=== PATIENT | female | born 1970 | race Caucasian/White ===

== ENCOUNTER 2016-07-10 15:34 | Emergency (ER) | payer BC ==
[2016-07-10 15:57] VITALS: BP 118/84
--- NOTE | 2016-07-10 16:22 | UC ---
UC General HPI - HPI Summary HPI Summary: patient has had 4 days for headache, sinus congestion, fever, body aches - History of Current Complaint Chief Complaint: UCRespiratory Stated Complaint: COUGH, BODY ACHES Time Seen by Provider: 07/10/16 16:09 Hx Obtained From: Patient Onset/Duration: Sudden Onset, Lasting Days Timing: Constant Onset Severity: Moderate Current Severity: Moderate Pain Intensity: 6 Associated Signs & Symptoms: Positive: Fever, Headache - Allergy/Home Medications Allergies/Adverse Reactions: Allergies Allergy/AdvReac Type Severity Reaction Status Date / Time Penicillins Allergy Mild yeast Verified 07/10/16 15:57 infection Sumatriptan [From Imitrex] Allergy See Comment Verified 07/10/16 15:57 Home Medications: Home Medications FLUoxetine CAP* [PROzac CAP*] 10 mg PO DAILY 07/10/16 [History Confirmed ] PMH/Surg Hx/FS Hx/Imm Hx Previously Healthy: Yes Endocrine History Of: Denies: Diabetes, Thyroid Disease Cardiovascular History Of: Reports: Hypertension Denies: Cardiac Disorders, Pacemaker/ICD Respiratory History Of: Denies: COPD, Asthma GI/ History Of: Reports: Gastroesophageal Reflux Denies: Ulcer, Gastrointestinal Bleed Neurological History Of: Reports: Migraine Denies: TIA, CVA, Dementia, Seizures - Surgical History Surgical History: Yes Surgery Procedure, Year, and Place: Left Forearm Nerve Decompression, 2008. Cholecystectomy, 2001, [facility]. uterine Ablation. R RCT. ulnar nerve right arm. carpal tunnel right side. Upper endo and Colonoscpy - Family History Known Family History: Positive: Other - migraines - Social History Alcohol Use: Occasionally Substance Use Type: None Smoking Status (MU): Former Smoker Type: Cigarettes Amount Used/How Often: 1 PPD Length of Time of Smoking/Using Tobacco: 5-6 Years Have You Smoked in the Last Year: No When Did the Patient Quit Smoking/Using Tobacco: 1993 - Immunization History Most Recent Influenza Vaccination: 04/2015 Review of Systems Skin: Negative Eyes: Negative ENT: Sore Throat, Nasal Discharge Respiratory: Cough Cardiovascular: Negative Gastrointestinal: Negative Genitourinary: Negative Motor: Negative Neurovascular: Negative Musculoskeletal: Myalgia Neurological: Headache Psychological: Negative All Other Systems Reviewed And Are Negative: Yes Physical Exam Triage Information Reviewed: Yes Appearance: Ill-Appearing, Pain Distress, Obese Vital Signs: Initial Vital Signs Temp 97.8 F 07/10/16 15:51 Pulse 86 07/10/16 15:51 Resp 16 07/10/16 15:51 BP 118/84 07/10/16 15:51 Pulse Ox 98 07/10/16 15:51 Vital Signs Reviewed: Yes Eye Exam: Normal Eyes: Positive: Conjunctiva Inflamed ENT: Positive: Hearing grossly normal, Pharyngeal erythema, Nasal congestion, Nasal drainage, TMs normal Dental Exam: Normal Neck exam: Normal Neck: Positive: Supple, Nontender, No Lymphadenopathy Respiratory Exam: Normal Respiratory: Positive: Chest non-tender, Lungs clear, Normal breath sounds Cardiovascular Exam: Normal Cardiovascular: Positive: RRR, No Murmur, Pulses Normal Abdominal Exam: Normal Abdomen Description: Positive: Nontender, No Organomegaly, Soft Bowel Sounds: Positive: Present Musculoskeletal Exam: Normal Musculoskeletal: Positive: Strength Intact, ROM Intact, No Edema Neurological Exam: Normal Neurological: Positive: Alert, Muscle Tone Normal Psychological Exam: Normal Skin Exam: Normal Course/Dx - Course Course Of Treatment: history obtained, exam performed, medications removed, flu swab obtained per patients request. - Differential Dx - Multi-Symptom Provider Diagnoses: sinus congestion. headache. myalgia Discharge - Discharge Plan Condition: Stable Disposition: HOME Patient Education Materials: Rhinosinusitis (ED) Additional Instructions: Take the prednisone as prescribed. increase fluid intake and get some rest. follow up with any worsening symptoms.
== END 2016-07-10 16:48 | disposition home or self-care (01) ==
LOC: UCCORT 15:34
DX: R09.81 Nasal congestion (principal); R51 Headache; M79.1 Myalgia; Z88.0 Allergy status to penicillin; Z88.8 Allergy status to other drugs, medicaments and biological substances; Z87.891 Personal history of nicotine dependence
CPT/HCPCS: 87502; 99212; G0463

== ENCOUNTER 2016-07-27 21:38 | Emergency (ER) | payer BC ==
[2016-07-27 21:47] VITALS: BP 132/83
[2016-07-27] MEDS ORDERED: methylPREDNISolone 125 MG* 2 ML VIAL IM ONE (21:55)
[2016-07-27] MEDS ORDERED: LoraTADine TAB(NF) 10 MG TAB (AUTOSUB to CETIRIZINE) PO ONE (21:56)
--- NOTE | 2016-07-27 22:06 | UC ---
Allergic Reaction HPI - HPI Summary HPI Summary: swelling of lower lip started around 6pm today. No known cause. No new foods or meds. Has been on Lisinopril for years, no change in dose or brand. Gradual worsening of swelling. Now she feels a slight sensation of swelling low down in the throat. No voice change. Able to swallow saliva. No wheezing or trouble breathing. No history of similar reaction. No skin rash or itching. NO recent immunizations. No family history of similar swelling - History of Current Complaint Chief Complaint: UCAllergicReaction Stated Complaint: ALLERGIC REACTION Time Seen by Provider: 07/27/16 21:47 Hx Obtained From: Patient Hx Last Menstrual Period: ABLATION ?: No Onset/Duration: Gradual Onset, Lasting Hours - 4 Severity Initially: Mild Severity Currently: Moderate Location: Discrete @ - lower lip Character: Swelling Aggrevating Factor(s): Nothing Alleviating Factor(s): Nothing Associated Signs And Symptoms: Positive: Throat Tightening - "feels swollen way down in throat". Negative: Cough Wheezing, Diaphoresis, Difficulty Breathing, Hoarseness, Lightheadedness, Nausea, Rash, Syncope - Related Hx Possible Reaction To: Unknown - Allergies/Home Medications Allergies/Adverse Reactions: Allergies Allergy/AdvReac Type Severity Reaction Status Date / Time Penicillins Allergy Mild yeast Verified 07/27/16 21:47 infection Sumatriptan [From Imitrex] Allergy See Comment Verified 07/27/16 21:47 Home Medications: Home Medications Diphenhydramine HCl [Benadryl Allergy] 25 mg PO ONCE 07/27/16 [History Confirmed 07/27/16] PMH/Surg Hx/FS Hx/Imm Hx Endocrine History Of: Denies: Diabetes, Thyroid Disease Cardiovascular History Of: Reports: Hypertension Denies: Cardiac Disorders, Pacemaker/ICD Respiratory History Of: Denies: COPD, Asthma GI/ History Of: Reports: Gastroesophageal Reflux Denies: Ulcer, Gastrointestinal Bleed Neurological History Of: Reports: Migraine Denies: TIA, CVA, Dementia, Seizures - Surgical History Surgical History: Yes Surgery Procedure, Year, and Place: Left Forearm Nerve Decompression, 2009. Cholecystectomy, 2001, [facility]. uterine Ablation. R RCT. ulnar nerve right arm. carpal tunnel right side. 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 Alcohol Use: Occasionally Substance Use Type: None Smoking Status (MU): Former Smoker Type: Cigarettes Amount Used/How Often: 1 PPD Length of Time of Smoking/Using Tobacco: 5-6 Years Have You Smoked in the Last Year: No When Did the Patient Quit Smoking/Using Tobacco: 1993 - Immunization History Most Recent Influenza Vaccination: 04/2015 Review of Systems Constitutional: Negative Skin: Negative Eyes: Negative ENT: Other - lip swelling Respiratory: Negative Cardiovascular: Negative Gastrointestinal: Negative Genitourinary: Negative Motor: Negative Neurovascular: Negative Musculoskeletal: Negative Neurological: Negative Psychological: Negative All Other Systems Reviewed And Are Negative: Yes Physical Exam Triage Information Reviewed: Yes Appearance: Well-Appearing, No Pain Distress, Well-Nourished Vital Signs: Initial Vital Signs Temp 97.6 F 07/27/16 21:41 Pulse 76 07/27/16 21:41 Resp 24 07/27/16 21:41 BP 132/83 07/27/16 21:41 Pulse Ox 100 07/27/16 21:41 Vital Signs Reviewed: Yes Eye Exam: Normal Eyes: Positive: Conjunctiva Clear ENT: Positive: Hearing grossly normal, Pharynx normal - no visible swelling of pharynx or uvula. Voice normal, not muffled or hoarse. Lower lip is mildly edematous. No rash. No tongue swelling, TMs normal. Negative: Nasal congestion , Nasal drainage, Tonsillar swelling, Tonsillar exudate, Trismus, Muffled/ hoarse voice Neck exam: Normal Neck: Positive: Supple, Nontender Respiratory Exam: Normal Respiratory: Positive: Lungs clear, Normal breath sounds, No respiratory distress, No accessory muscle use Cardiovascular Exam: Normal Musculoskeletal Exam: Normal Neurological Exam: Normal Psychological Exam: Normal Skin Exam: Normal Allergic Reaction Course/Dx - Course Course Of Treatment: advised to go directly to ER if any worsening symptoms. Also advised to stop Lisinopril until she can confer with her primary care doctor - Differential Dx/Diagnosis Differential Diagnosis/HQI/PQRI: Anaphylaxis, Angioedema, Local Allergic Reaction Provider Diagnoses: angioedema Discharge - Discharge Plan Condition: Stable Disposition: HOME Prescriptions: Methylprednisolone [Medrol Dosepak 4 MG*] 4 mg PO .SEE NAINA INSTRUCTION #1 naina Patient Education Materials: Angioedema (ED) Referrals: Felecia Heaton MD [Primary Care Provider] - Additional Instructions: STOP YOUR LISINOPRIL. Don't take it until you discuss with your primary care doctor. This lip and throat swelling can sometimes be associated with Lisinopril , even after years of taking it. If you get worse tonight, with a muffled voice or worse mouth swelling or throat tightening, you MUST go directly to the ER. The swelling with this condition can sometimes get very dramatic and can make it difficult for you to breathe.
== END 2016-07-27 22:26 | disposition home or self-care (01) ==
LOC: UCCORT 21:38
DX: T78.3XXA Angioneurotic edema, initial encounter (principal); I10 Essential (primary) hypertension; Z87.891 Personal history of nicotine dependence
CPT/HCPCS: 96372; 99212; A9270-GY; G0463; J2930

== ENCOUNTER 2017-01-06 15:58 | Emergency (ER) | payer BC, OTHER ==
--- NOTE | 2017-01-06 16:22 | UC ---
Upper Extremity HPI - HPI Summary HPI Summary: complaint of right arm pain that started yesterday afternoon was at work and resendeant cam at her and she put arm up to protecte yoursself and was puched in the hand and ten hit her foreamr several times aching pain in wrist, hand and radiates into her elbow, right shoulder is sore with movement twisting her wrist increases the pain resting and ice lessens the pain took some acetaminophen with some relief hx of rotator cuff surgery in right shoulder-2013 - History of Current Complaint Chief Complaint: UCUpperExtremity Stated Complaint: RIGHT ARM INJURY Time Seen by Provider: 01/06/17 16:15 Hx Obtained From: Patient Hx Last Menstrual Period: uterine ablation - Allergies/Home Medications Allergies/Adverse Reactions: Allergies Allergy/AdvReac Type Severity Reaction Status Date / Time Penicillins Allergy Mild yeast Verified 01/06/17 16:11 infection Sumatriptan [From Imitrex] Allergy See Comment Verified 01/06/17 16:11 Home Medications: Home Medications Magnesium Oxide TAB* [MagOx 400 TAB*] 800 mg PO DAILY 01/06/17 [History Confirmed 01/06/17] Meloxicam [Mobic] 15 mg PO DAILY 01/06/17 [History Confirmed 01/06/17] Ropinirole Hydrochloride [Ropinirole HCl] 0.5 mg PO BEDTIME 01/06/17 [History Confirmed 01/06/17] Vitamin E CAP* 400 unit PO DAILY 01/06/17 [History Confirmed 01/06/17] PMH/Surg Hx/FS Hx/Imm Hx Previously Healthy: Yes - fibromyalgia Endocrine History: Dyslipidemia Cardiovascular History: Hypertension Neurological History: Migraine Psychological History: Anxiety - Surgical History Surgical History: Yes Surgery Procedure, Year, and Place: Left Forearm Nerve Decompression, 2008. Cholecystectomy, 2001, [facility]. uterine Ablation. R RCT. ulnar nerve right arm. carpal tunnel right side. Upper endo and Colonoscpy. Cystocele repair with mesh - Family History Known Family History: Positive: Hypertension, Other - migraines Negative: Cardiac Disease, Diabetes - Social History Occupation: Employed Full-time Lives: With Family Alcohol Use: Daily Alcohol Amount: 2 beers each evening Substance Use Type: None Smoking Status (MU): Former Smoker Type: Cigarettes Amount Used/How Often: 1 PPD Length of Time of Smoking/Using Tobacco: 5-6 Years Have You Smoked in the Last Year: No When Did the Patient Quit Smoking/Using Tobacco: 1993 - Immunization History Most Recent Influenza Vaccination: 04/2015 Review of Systems Constitutional: Negative Skin: Negative Eyes: Negative ENT: Negative Respiratory: Negative Cardiovascular: Negative Gastrointestinal: Negative Genitourinary: Negative Motor: Negative Neurovascular: Negative Musculoskeletal: Other: - right wrist, hand, arm pain Neurological: Negative Psychological: Negative All Other Systems Reviewed And Are Negative: Yes Physical Exam Triage Information Reviewed: Yes Appearance: No Pain Distress, Well-Nourished Vital Signs: Initial Vital Signs Temp 98.3 F 01/06/17 16:04 Pulse 88 01/06/17 16:04 Resp 16 01/06/17 16:04 BP 130/72 01/06/17 16:04 Pulse Ox 97 01/06/17 16:04 Vital Signs Reviewed: Yes Eyes: Positive: Conjunctiva Clear ENT: Positive: Pharynx normal, TMs normal Neck: Positive: No Lymphadenopathy Respiratory: Positive: Lungs clear, Normal breath sounds, No respiratory distress, No accessory muscle use Cardiovascular: Positive: RRR, No Murmur, Pulses Normal Abdomen Description: Positive: Nontender, Soft Bowel Sounds: Positive: Present Musculoskeletal: Positive: Other: - right hand- tendernessand eccymosis thenar eminence positive anatomical snuff box tenderness;no metacarpal tenderness Full ROM in DIP, PIP, MCP, & carpal joints & with supination and pronation. RUE-No bony deformities, inflammation, or tenderness in olecranon, medial, lateral epicondyle elbow. Full ROM upon flexion and extension. Neurological: Positive: Alert Psychological Exam: Normal Skin Exam: Normal Upper Extremity Course/Dx - Differential Dx/Diagnosis Differential Diagnosis/HQI/PQRI: Contusion, Fracture (Closed), Strain, Sprain Provider Diagnoses: wrist injury, contusions to RUE-hand and arm Discharge - Discharge Plan Condition: Stable Disposition: HOME Patient Education Materials: Contusion in Adults (ED), Wrist Fracture in Adults (ED) Referrals: Felecia Heaton MD [Primary Care Provider] - Sean Sánchez MD [Medical Doctor] - Additional Instructions: call video conference specialist for further evaluation of your wrist injury keep wearing wrist splint until seem by video conference specialist. CONTUSION What is a Contusion? A contusion is a deep bruise. It is caused by a collection of blood under the skin. It usually goes away in about 4 days. Symptoms Might Include Pain Swelling Discoloration in the injured area Pain on motion or restricted motion may also be noticed Treatment Recommendations (JAIR): Rest Stop the activity that causes pain and protect the injured area using a splint, slings, or crutches as needed or as advised by a healthcare provider. Other alternative activities are recommended as long as they do not cause pain. Ice Ice the injury for 20 minutes 3 to 4 times daily, waiting at least 1 to 2 hours between icings. Compression Use a compression wrap (such as an Saman? wrap) on the injury, removing it at night. Elevate Keep the injured part elevated slightly above the level of the heart whenever possible. [id number] pain medications, such as acetaminophen (Tylenol) may help alleviate pain. Use heat (heating pad on lowest setting or moist towels) after the first 48 hours. (Do NOT use heat while sleeping.) Call Your Doctor or Return Here IF: Increased pain, especially with passive motion Swelling Warmth Redness to the area Numbness or tingling to the area Any new symptoms that worry you
[2017-01-06 16:40] VITALS: BP 130/72
--- NOTE | 2017-01-06 17:28 | RAD ---
HISTORY: Right thumb trauma COMPARISONS: None VIEWS: 3, Frontal, lateral, and oblique views of the first digit of the right hand FINDINGS: BONE DENSITY: Normal. BONES: There is no displaced fracture. JOINTS: There is osteoarthritis of the first CMC and MCP joints ALIGNMENT: There is no dislocation. SOFT TISSUES: Unremarkable. OTHER FINDINGS: None. IMPRESSION: OSTEOARTHRITIS. NO ACUTE OSSEOUS INJURY. IF SYMPTOMS PERSIST, RECOMMEND REPEAT IMAGING.
--- NOTE | 2017-01-06 17:29 | RAD ---
HISTORY: Left wrist trauma COMPARISONS: July 22, 2010 VIEWS: 4, Frontal, lateral, oblique, and scaphoid deviation views of the left wrist FINDINGS: BONE DENSITY: Normal. BONES: There is no displaced fracture. JOINTS: There is osteoarthritis of the first CMC and MCP joints ALIGNMENT: There is no dislocation. SOFT TISSUES: Unremarkable. OTHER FINDINGS: None. IMPRESSION: OSTEOARTHRITIS. NO ACUTE OSSEOUS INJURY. IF SYMPTOMS PERSIST, RECOMMEND REPEAT IMAGING.
== END 2017-01-06 17:39 | disposition home or self-care (01) ==
LOC: UCCORT 15:58
DX: S69.91XA Unspecified injury of right wrist, hand and finger(s), initial encounter (principal); S40.021A Contusion of right upper arm, initial encounter; S60.221A Contusion of right hand, initial encounter; I10 Essential (primary) hypertension; M79.7 Fibromyalgia; Z87.891 Personal history of nicotine dependence; Y04.2XXA Assault by strike against or bumped into by another person, initial encounter; Y92.9 Unspecified place or not applicable; Z88.0 Allergy status to penicillin; F41.9 Anxiety disorder, unspecified
CPT/HCPCS: 99211; G0463

== ENCOUNTER 2017-05-08 14:04 | Day surgery (SDC) | payer OTHER ==
[~2017-05-08 14:04] MED LIST: Buffered Lidocaine 0.9% SYRIN* 5 ML/SYR SYRINGE INTRADERM ONE; Clindamycin 900 MG IVPREMIX(* 900 MG/50 ML SDV IV ONE; Famotidine IV* 10 MG/ML 2 ML (20 mg) IV ONE; Famotidine IV* 10 MG/ML 2 ML (20 mg) ONE
[2017-05-08] MEDS ORDERED: Midazolam* 1 MG/ML 5 ML VIAL (5 MG) ONE (14:14)
[2017-05-08] MEDS ORDERED: fentaNYL* 50 MCG/ML 2 ML VIAL (100 MCG VIAL) ONE ×2 (14:14→17:27)
[2017-05-08] MEDS ORDERED: Buffered Lidocaine 0.9% SYRIN* 5 ML/SYR SYRINGE ONE (14:57)
[2017-05-08] MEDS ORDERED: Famotidine IV* 10 MG/ML 2 ML (20 mg) ONE (15:14)
[2017-05-08] MEDS ORDERED: Bupivacaine 0.25% SDV* 30 ML ONE (16:35)
[2017-05-08] MEDS ORDERED: Dexamethasone IV* 4 MG/ML 1 ML (4 MG) ONE (17:31)
[2017-05-08] MEDS ORDERED: Propofol* 10 MG/ML 20 ML BTL IV PUSH ONE (17:31)
[2017-05-08] MEDS ORDERED: Ondansetron INJ* 2 MG/ML VIAL ONE (17:31)
[2017-05-08] MEDS ORDERED: DiMENhydriNATE IV* 50 MG/ML VIAL ONE ×2 (17:31→18:48)
[2017-05-08] MEDS ORDERED: Lidocaine 2% PF * 5 ML VIAL ONE (17:31)
[2017-05-08] MEDS ORDERED: Ketorolac INJ* 30 MG/ML 1 ML VIAL ONE (17:31)
[2017-05-08] MEDS ORDERED: HYDROmorphone INJ* 1 MG/ML CARPUJECT SYRINGE ONE (18:17)
[2017-05-08] MEDS ORDERED: oxyCODONE/Acetamin 5/325 MG* TAB PO PRN (18:46)
[2017-05-08] MEDS ORDERED: DiMENhydriNATE IV* 50 MG/ML VIAL IV PUSH PRN (18:46)
[2017-05-08] MEDS ORDERED: HYDROmorphone INJ* 1 MG/ML CARPUJECT SYRINGE IV PRN (18:46)
[2017-05-08 19:27] VITALS: BP 122/72
--- NOTE | 2017-05-13 09:11 | OP ---
DATE OF OPERATION: 05/08/17 [facility] DATE OF : 70 SURGEON: Kodak Olivo MD. MECHANICAL SHOP LABORER: KUNAL Dalal. An vector control assistant was needed for the procedure to aid in positioning of the arm and passing the arthroscopic instruments in and out of the joint. ANESTHESIOLOGIST: Dr. Moon. ANESTHESIA: General. PRE-OP DIAGNOSES: 1. Right wrist pain with questionable scapholunate instability. 2. Right de Quervain's tendonitis. POST-OP DIAGNOSES: 1. Right de Quervain's tendonitis. 2. 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 3. Right wrist synovitis. PROCEDURE PERFORMED: 1. Diagnostic right wrist arthroscopy. 2. Right wrist arthroscopic dorsal synovectomy. 3. Right de Quervain's release. ESTIMATED BLOOD LOSS: 2 mL. INDICATIONS: Kerry has had persistent wrist pain. I have been following her for a long time. She has worked out all of her stiffness. The pain will not go away. She has failed nonoperative treatments. I told her that the next step would be to release the de Quervain's and then to also do a wrist arthroscopy to gauge how much carpal instability she has. There is some questionable signs of that on her imaging and her clinical symptoms are consistent with pain related to that. COMPLICATIONS: None. FINDINGS: Stage 3 instability at the scapholunate articulation, also with lunotriquetral instability. DESCRIPTION OF PROCEDURE: Kerry was seen in the preoperative holding area. The correct side, site, and procedure were identified. We came back to the operating room. The arm was prepped and draped in the usual fashion. A time- out was performed. The arm was placed in the Acumed Traction [place] with the use of the finger traps. It was then exsanguinated and the tourniquet was inflated to 250 mmHg. I then developed 3/4 and 4/5 portals using an 11 blade and then a mosquito. A blunt trocar was used to introduce the cannula into the 3/4 port and the camera was introduced there. The wrist arthroscopy was begun. There was a bit of a step-off at the scapholunate articulation with the lunate sagging a little more proximal than the scaphoid. The articular surfaces looked good. There was abundant dorsal synovitis. A shaver was introduced through the 4/5 portal and synovectomy was performed. I also did go ahead and developed a 6R portal to aid in the synovectomy. Once the dorsal synovectomy was performed, I went ahead and looked at the TFCC, there was a little bit fraying, but no large tears. I went ahead and cleaned up all the loose edges and then the arthroscopic equipment was withdrawn there and then I went ahead and developed a radial and ulnar midcarpal portals in a similar fashion with the 11 blade, followed by the mosquito. The camera was introduced through the radial portal, the probe was introduced through the ulnar portal. I went ahead and looked at the scapholunate and lunotriquetral articulations. There was quite a bit of gapping inducible at the scapholunate articulation and there was a step-off at the joint as well. I could not pass the camera, but I could easily twist the probe and there was quite a bit of gapping. There was also some gapping in the lunotriquetral articulation as well. At this point, I went ahead and introduced the shaver and took out some more dorsal synovitis as there was some pretty abundant synovitis in the midcarpal row as well. Once that was complete, I went ahead withdrew the arthroscopic equipment. The arm was taken out of the traction tower and the arthroscopic equipment was handed off. I then made a 2 cm transverse incision just proximal to the radial styloid. Full- thickness flaps were raised right off of the first dorsal compartment tendon sheath. The radial sensory nerve was retracted gently. The sheath was incised in line with the tendons on the dorsal aspect. There was one septation creating an accessory compartment. This was released and completely excised. I went ahead and took the rongeur and trimmed down a little bony ridge there. Once the release was completed distally and proximally with the tenotomy scissors, we irrigated out the wound and the skin was closed with a 3-0 Monocryl suture. The portal sites were all closed with 3-0 Monocryl suture as well. All the areas were infiltrated with 0.25% plain Marcaine. The wounds were dressed with Xeroform, 4x4s, sterile Webril, and a cockup wrist splint was applied. She was then woken up and taken to the recovery room in stable condition. [id number]/[facility] #: [id number] [facility] CENTERAmrita
== END 2017-05-08 19:29 | disposition home or self-care (01) ==
LOC: OREAST 14:04
PROVIDERS: ATTEND Orthopaedic Surgery Hand Surgery
DX: M65.4 Radial styloid tenosynovitis [de Quervain] (principal); M67.431 Ganglion, right wrist; M25.331 Other instability, right wrist; M65.831 Other synovitis and tenosynovitis, right forearm; M79.7 Fibromyalgia; F41.9 Anxiety disorder, unspecified; E66.01 Morbid (severe) obesity due to excess calories; I10 Essential (primary) hypertension; Z68.38 Body mass index [BMI] 38.0-38.9, adult; Z88.0 Allergy status to penicillin; Z88.6 Allergy status to analgesic agent; Z88.8 Allergy status to other drugs, medicaments and biological substances; Z87.891 Personal history of nicotine dependence; S63.30 Traumatic rupture of unspecified ligament of wrist; X58.XXXD Exposure to other specified factors, subsequent encounter
CPT/HCPCS: 81025; 88304; J1100; J1170; J1240; J1885; J2250; J2405; J2704; J3010

== ENCOUNTER 2017-10-09 08:44 | Day surgery (SDC) | payer OTHER ==
[~2017-10-09 08:44] MED LIST changes: -Clindamycin 900 MG IVPREMIX(* 900 MG/50 ML SDV IV ONE; -Famotidine IV* 10 MG/ML 2 ML (20 mg) IV ONE; -Famotidine IV* 10 MG/ML 2 ML (20 mg) ONE; +Famotidine TAB* 20 MG PO ONE
[2017-10-09] MEDS ORDERED: Clindamycin 900 MG IVPREMIX(* 900 MG/50 ML SDV IV ONE (08:56)
[2017-10-09] MEDS ORDERED: Famotidine TAB* 20 MG ONE (08:56)
[2017-10-09] MEDS ORDERED: fentaNYL* 50 MCG/ML 2 ML VIAL (100 MCG VIAL) ONE ×2 (10:36→11:52)
[2017-10-09] MEDS ORDERED: Midazolam* 1 MG/ML 5 ML VIAL (5 MG) ONE (10:36)
[2017-10-09] MEDS ORDERED: Bupivacaine 0.25% SDV* 30 ML ONE (11:01)
[2017-10-09] MEDS ORDERED: Naloxone* 0.4 MG/ML 1 ML VIAL IV PRN (11:18)
[2017-10-09] MEDS ORDERED: Acetaminophen TAB* 325 MG PO PRN (11:18)
[2017-10-09] MEDS ORDERED: DiMENhydriNATE IV* 50 MG/ML VIAL IV PUSH PRN (11:18)
[2017-10-09] MEDS ORDERED: Ondansetron INJ* 2 MG/ML VIAL ONE (11:52)
[2017-10-09] MEDS ORDERED: Lidocaine 2% PF * 5 ML VIAL ONE (11:52)
[2017-10-09] MEDS ORDERED: Propofol* 10 MG/ML 20 ML BTL IV PUSH ONE (11:52)
[2017-10-09] MEDS ORDERED: Dexamethasone IV* 4 MG/ML 1 ML (4 MG) ONE (11:52)
[2017-10-09] MEDS ORDERED: Ketorolac INJ* 30 MG/ML 1 ML VIAL ONE (11:52)
[2017-10-09] MEDS ORDERED: HYDROmorphone INJ* 1 MG/ML CARPUJECT SYRINGE ONE (12:56)
[2017-10-09] MEDS ORDERED: HYDROcodone/ACETAMIN 5-325 MG* 1 TAB ONE (14:33)
[2017-10-09 15:12] VITALS: BP 134/87
--- NOTE | 2017-10-09 23:55 | OP ---
DATE OF OPERATION: 10/09/17 - [facility] DATE OF : 70 SURGEON: Kodak Olivo MD MONOTYPE MACHINIST: KUNAL Valadez ANESTHESIOLOGIST: Dr. Moon. ANESTHESIA: General. PRE-OP DIAGNOSES: 1. Right intracarpal instability, both the scapholunate and lunotriquetral joints. 2. Stage 1 SLAC wrist. POST-OP DIAGNOSES: 1. Right intracarpal instability, both the scapholunate and lunotriquetral joints. 2. Stage 1 SLAC wrist. OPERATIVE PROCEDURE: 1. Right wrist scapholunate and lunotriquetral intracarpal ligament reconstruction with scapholunotriquetral tenodesis reconstruction using split distally based split flexor carpi radialis tendon transfer. 2. Right wrist radial styloidectomy. 3. Right wrist posterior interosseous nerve neurectomy. INDICATIONS: Kerry is 47 years old. She had an arthroscopy with synovectomy and debridement back in April of 2017. At the time of her arthroscopy, I noted significant instability at both the scapholunate and lunotriquetral joints when I examined her at the midcarpal portals. She continues to have pain over the dorsum of the wrist. She has a lot of tenderness at the radial styloid. I have given her injections in her hand and wrist. The injection that has helped her the most has been the wrist injection. I told her that ultimately probably going to have to see if we could address the scapholunate and lunotriquetral instability. I talked to her about the risk associated with this including the risks of failure of the surgery, persistent pain, need for further salvage procedure such as a four-corner fusion over a proximal row carpectomy, a risk of avascular necrosis of this scaphoid and lunate. She understood all of these; but her pain and instability and clicking and popping in the wrist were such that she wanted to see if she could get some relief and decided to proceed with the surgery. EBL: 5 mL. COMPLICATIONS: None. FINDINGS: Significant lunotriquetral and scapholunate intracarpal instability, was again confirmed intraoperatively as was seen at the time of arthroscopy. DESCRIPTION OF PROCEDURE: Kerry was seen in the preoperative holding area. The correct site, side, and procedure were identified. We came back to the operating room and the arm was prepped and draped in the usual fashion. A time- out was performed. The arm was exsanguinated with the Esmarch and the tourniquet inflated to 250 mmHg. I began by making a dorsal midline incision over the wrist in the typical location just over the third dorsal compartment. Dissection was carried down. Full thickness flaps were raised off of the extensor retinaculum. I then longitudinally opened the extensor retinaculum over the third dorsal compartment. The septum between the compartments were released and the tendons of the third and fourth dorsal compartments were retracted radially, and the fourth and fifth dorsal compartments were retracted ulnarly. At this point, we had very nice exposure of the dorsal wrist capsule. The dorsal radiocarpal and dorsal intracarpal ligaments were clearly visible. We turned our attention to obtaining our tendon graft. I went ahead and excised at this point the 2 cm of distal posterior interosseous nerve. This was done with the tenotomy scissors. The nerve was sent as a specimen. The palm was supinated. The palm was up. I made an oblique incision over the scaphoid. Dissection was carried down the FCR tendon. Sheath was encountered. The palmar carpal artery was identified. This was protected throughout the case. I released the soft tissue over the scaphoid tubercle and scaphotrapezial joint was visualized. I then opened the sheath of the FCR tendon. I split the tendon longitudinally with a 15 blade taking the radial 40% of the tendon. I then made 2 transverse incisions at about 7 or 8 cm proximal to each incision transversally. These were about 1 cm incision. The FCR tendon was exposed into the incision. The sheath was opened along the entirety of the incision. A 26- gauge wire was placed in the split of the tendon and this was pulled under the skin proximally releasing the radial 40% of the tendon at the musculotendinous junction. The muscular remnants of the FCR were cleaned up off the free end of the tendon. The tendon was stitched with a 3-0 Ethibond suture to secure it and keep it from fraying during passage during the tendon transfer. The proximal forearm wounds were irrigated and closed with 4-0 nylon suture. At this point, I raised the capsular flap by releasing the capsule off of the distal margin of the dorsal distal radius. This was brought down and then carried obliquely in line with the dorsal intracarpal ligament to the ulnar side of the triquetrum where it was brought longitudinally distally and then brought back transversally along the course of the dorsal intracarpal ligament. The adhesions to the dorsal corpus were released sharply what was left at the lunotriquetral and dorsal scapho-lunate ligaments were preserved as I raised the capsular flap. At this point, we pulled traction and used a Constantine elevator to open up the midcarpal joint. There was martha instability at the scapholunate and lunotriquetral joints. With the radially based capsular flap raised, I went ahead and took the guidewire for a 2.7 cannulated drill bit and made and placed the wire from the dorsal aspect of the lunate facet of the proximal pole of the scaphoid out towards the appropriate location in the distal radial scaphoid tuberosity taking care not to violate the midcarpal joint. Once the wire was in the correct positioning confirmed fluoroscopically, I went ahead and overdrilled the wire with a 2.7-mm cannulated drill bit. I then removed that wire and I took the wire and drilled starting at the volar ulnar aspect of the lunate, the wire until it crossed lunotriquetral joint and exited out the dorsal aspect of the scaphoid facet of the lunate. Once I had the wire in the correct position, I overdrilled it with a 2.7-mm cannulated drill bit. At this point, I irrigated out both drill tunnels. I passed a Hewson suture passer first through the bone tunnel in the scaphoid. The whipstitch in the end of the tendon was retrieved and pulled through the bone tunnel, the tendon was passed through the bone tunnel. I then passed the Hewson suture passer through the lunotriquetral bone tunnel and similarly delivered the tendon edge through that bone tunnel. I then brought the end of the tendon back and looped it around the portion of the tendon graft visible right at the dorsal margin of the scapholunate articulation. The tendon graft was looped through that, pulled back onto itself, tensioned. This reduced and closed down the scapholunate and lunotriquetral articulations completely and put the bones in anatomic alignment. With the tendon transfer at maximum tension, I secured the tendon transfer with multiple [id number] 3-0 Ethibond sutures. Once the tendon transfer was secured, everything was looking good, so we irrigated everything out. To protect the ligament reconstruction, I did take a 0.045 K-wire and I placed one scaphocapitate pin and then a second scapholunate pin. The pins were bent and clipped out and left outside the skin. I raised the periosteum off of the radial styloid of the dorsal aspect. I then used the sagittal saw to perform a radial styloidectomy in standard fashion preserving the origin of the radioscaphocapitate ligament. The bone wax was placed over the cancellous bone. With all the procedures completed, we irrigated out everything. The radially- based capsular flap was closed with 4-0 Ethibond suture. The extensor retinaculum was repaired with 4-0 Ethibond suture leaving the EPL tendon transposed. The skin was closed with 4-0 Monocryl and Steri-Strips. The palmar incision was irrigated out and closed with 4-0 nylon suture. All of the wounds were infiltrated with 0.25% plain Marcaine. The wounds were dressed with Xeroform, 4x4s, sterile Webril, and a volar cockup wrist splint was applied. The patient was woken up and taken to the recovery room in stable condition. [id number]/[facility] #: [id number] [facility]ALTH SYSTEMAmrita
--- NOTE | 2017-10-10 12:52 | RAD ---
CPT II Codes: G9500 INDICATION: Right wrist fracture TECHNIQUE: Intraoperative fluoroscopy was provided during ORIF of the right wrist. FINDINGS: 3 spot films depict percutaneous pinning of the right carpal bones. Fluoroscopy time: 1 minute and 2 seconds IMPRESSION: As above.
== END 2017-10-09 14:35 | disposition home or self-care (01) ==
LOC: OREAST 08:44
PROVIDERS: ATTEND Orthopaedic Surgery Hand Surgery
DX: S63.30 Traumatic rupture of unspecified ligament of wrist (principal); M25.331 Other instability, right wrist; Z87.891 Personal history of nicotine dependence; I10 Essential (primary) hypertension; K21.9 Gastro-esophageal reflux disease without esophagitis; M79.7 Fibromyalgia; F41.9 Anxiety disorder, unspecified; E66.01 Morbid (severe) obesity due to excess calories; X58.XXXD Exposure to other specified factors, subsequent encounter
CPT/HCPCS: 76000; 88302; A9270-GY; C1776; J1100; J1170; J1885; J2250; J2405; J2704; J3010

== ENCOUNTER 2017-11-10 11:05 | Emergency (ER) | payer OTHER ==
[2017-11-10] MEDS ORDERED: Ibuprofen TAB* 600 MG PO ONE (13:23)
[2017-11-10 13:38] VITALS: BP 132/79
--- NOTE | 2017-11-11 05:47 | ED ---
Upper Extremity Pain - HPI Summary HPI Summary: Patient is a 47-year-old female presents to the ED with the chief complaint of right wrist pain and hand pain. She is a patient of Dr. Oliov. She is s/p surgery 4 weeks ago with pins removed 1 week ago due to an infection. She was placed back in a thumb spica splint cast. She states her pain is unbearable and called Dr. Olivo office today. They stated she should come here to be evaluated in the ED as he is in the OR. She denies any fevers, sweats, chills. Denies any numbness tingling in the ipsilateral hand. Denies any color or temperature changes to the fingertips. Denies any elbow pain. She states upon certain movements the pain will shoot up to the elbow. Most of the pain is the base of the thumb radiating over into the ulnar side of the wrist. - History of Current Complaint Chief Complaint: EDExtremityUpper Stated Complaint: RT ARM PAIN Time Seen by Provider: 11/10/17 11:35 Hx Obtained From: Patient Hx Last Menstrual Period: uterine ablation Onset/Duration: Started Days Ago Timing: Constant Severity Initially: Moderate Severity Currently: Moderate Character: Sharp Aggravating Factor(s): Movement Alleviating Factor(s): Nothing Associated Signs & Symptoms: Positive: Negative. Negative: Swelling, Redness, Bruising, Numbness/Tingling Related History: Dominant Hand Right - Risk Factors Non-Orthopedic Risk Factor: Negative DVT Risk Factors: Recent Surgery Septic Arthritis Risk Factor: Negative Compartment Syndrome Risk Factors: Pain - Allergies/Home Medications Allergies/Adverse Reactions: Allergies Allergy/AdvReac Type Severity Reaction Status Date / Time Penicillins Allergy yeast Verified 11/10/17 11:28 sumatriptan [From Imitrex] Allergy Edema Verified 11/10/17 11:28 ALEVE Allergy Hives Uncoded 11/10/17 11:28 allergy shot Allergy anaphylaxis Uncoded 11/10/17 11:28 Home Medications: Home Medications DULoxetine DR CAP* [Cymbalta CAP*] 60 mg PO DAILY 11/10/17 [History Confirmed ] Ferrous Sulfate TAB* 325 mg PO DAILY 11/10/17 [History Confirmed 11/10/17] Meloxicam(NF) [Mobic(NF)] 15 mg PO DAILY 11/10/17 [History Confirmed 11/10/17] Nystatin CREAM* 1 applic TOPICAL BID PRN 11/10/17 [History Confirmed 11/10/17] rOPINIRole TAB* [Requip TAB*] 0.5 mg PO BEDTIME 11/10/17 [History Confirmed ] PMH/Surg Hx/FS Hx/Imm Hx Previously Healthy: Yes Endocrine/Hematology History: Reports: Hx Anemia - as a teen Denies: Hx Diabetes, Hx Thyroid Disease Cardiovascular History: Reports: Hx Hypertension - ON DAILY MEDS Denies: Hx Pacemaker/ICD, Other Cardiovascular Problems/Disorders Respiratory History: Denies: Hx Asthma, Hx Chronic Obstructive Pulmonary Disease (COPD), Other Respiratory Problems/Disorders GI History: Reports: Hx Gastroesophageal Reflux Disease, Hx Irritable Bowel Denies: Hx Gastrointestinal Bleed, Hx Ulcer, Other GI Disorders History: Reports: Hx Kidney Infection - 2 months ago Denies: Hx Renal Disease Musculoskeletal History: Reports: Hx Arthritis - SHOULDERS, KNEES, FINGERS, Hx Tendonitis - right wrist Sensory History: Denies: Hx Contacts or Glasses, Hx Hearing Aid Opthamlomology History: Denies: Hx Contacts or Glasses Neurological History: Reports: Hx Migraine - USUALY EVERY FEW MONTHS, RELIEF WITH QUIET REST & OTC MEDS, Other Neuro Impairments/Disorders - FIBROMYALGIA Denies: Hx Dementia, Hx Seizures, Hx Transient Ischemic Attacks (TIA) Psychiatric History: Reports: Hx Anxiety - TAKING DAILY MEDS, Hx Depression, Hx Panic Disorder - Surgical History Surgery Procedure, Year, and Place: 2008 Left Forearm Nerve Decompression, [facility]. 2014 RIGHT ROTATOR CUFF REPAIR- [facility]. 2001 Cholecystectomy, [facility]. [address] OFF[address]. 2012 RT CARPAL TUNNEL & ulnar nerve right arm [facility]. 2016 Upper endo and Colonoscpy [facility]. 2016 Cystocele repair with mesh [facility]. 2016 HEART CATH NO STENTS [facility]. 04/2017, right wrist , [facility] Hx Anesthesia Reactions: No - Immunization History Hx Pertussis Vaccination: No Immunizations Up to Date: Unable to Obtain/Confirm Infectious Disease History: No Infectious Disease History: Denies: Hx Clostridium Difficile, Hx Hepatitis, Hx Human Immunodeficiency Virus (HIV), Hx of Known/Suspected MRSA, Hx Shingles, Hx Tuberculosis, Hx Known/ Suspected VRE, Hx Known/Suspected VRSA, History Other Infectious Disease, Traveled Outside the [place] in Last 30 Days - Family History Known Family History: Positive: Hypertension, Other - migraines Negative: Cardiac Disease, Diabetes - Social History Occupation: Employed Full-time Lives: With Family Alcohol Use: Rare Alcohol Amount: 2 beers each evening Hx Substance Use: No Substance Use Type: Reports: None Hx Tobacco Use: Yes Smoking Status (MU): Former Smoker Type: Cigarettes Amount Used/How Often: pack a week for off and on for many years Length of Time of Smoking/Using Tobacco: 5-6 Years Have You Smoked in the Last Year: Yes Review of Systems Constitutional: Negative Negative: Fever, Chills ENT: Negative Cardiovascular: Negative Genitourinary: Negative Positive: no symptoms reported, see HPI Positive: Arthralgia Skin: Negative Psychological: Normal All Other Systems Reviewed And Are Negative: Yes Physical Exam Triage Information Reviewed: Yes Vital Signs On Initial Exam: Initial Vitals Temp Pulse Resp BP Pulse Ox 98.8 F 93 20 131/75 97 11/10/17 11:20 11/10/17 11:20 11/10/17 11:20 11/10/17 11:20 11/10/17 11:20 Vital Signs Reviewed: Yes Appearance: Positive: Well-Appearing, No Pain Distress Skin: Positive: Skin Color Reflects Adequate Perfusion, Other - s/p surgery without erythema or drainage Head/Face: Positive: Normal Head/Face Inspection Neck: Positive: Supple, No Lymphadenopathy Respiratory/Lung Sounds: Positive: Clear to Auscultation, Breath Sounds Present Cardiovascular: Positive: RRR, Pulses are Symmetrical in both Upper and Lower Extremities Musculoskeletal: Positive: Pain @ - R wrist Neurological: Positive: Speech Normal Psychiatric: Positive: Normal Diagnostics - Vital Signs Vital Signs Temp Pulse Resp BP Pulse Ox 11/10/17 13:37 99.0 F 88 21 132/79 96 11/10/17 11:20 98.8 F 93 20 131/75 97 - Laboratory Lab Statement: Any lab studies that have been ordered have been reviewed, and results considered in the medical decision making process. Course/Dx - Course Course Of Treatment: During the course of treatment, the patient is evaluated for right wrist pain. Patient arrives in a cast. This was removed via cast cutter. Dr. Olivo was called who agrees to come see patient in the ED. He does not feel this is an infection. He then places a splint to the hand with a volar with a thumb spica. Patient continues to complain of pain. She is given Motrin while in the ED. She will continue to follow up with Dr. Olivo. - Diagnoses Provider Diagnoses: S/P wrist surgery, Wrist pain - Physician Notifications Discussed Care of Patient With: Kodak Olivo Instructed by Provider To: Have Pt Call For Appt. Discharge - Sign-Out/Discharge Documenting (check all that apply): Discharge/Admit/Transfer - Discharge Plan Condition: Stable Disposition: HOME Referrals: Felecia Heaton MD [Primary Care Provider] - - Billing Disposition and Condition Condition: STABLE Disposition: HOME
--- NOTE | 2017-11-26 07:57 | PN ---
Progress Note - Progress Note Date of Service: 11/10/17 Note: In reviewing her chart I realized no note was present for her ER visit on 11/10. At that time, patient denied any fevers or chills or systemic symptoms. She has been taking the Keflex. I had the ER remove the cast so I could examine the wrist. There was no drainage or redness of signs of infection. There was no drainage. Her vitals were stable and she was afebrile. Her wrist was appropriately stiff for having recently had surgery and then being casted. There was mild swelling. I was not aware of any labs being sent. I told Kerry that I thought we should switch her from a cast to a removable splint so that she could remove the splint and frequently observe the wrist and call me if there were any changes. She agreed to let me know if there were any changes and so we allowed her to be discharged home.
== END 2017-11-10 13:35 | disposition home or self-care (01) ==
LOC: ED 11:05
DX: M25.531 Pain in right wrist (principal); Z98.890 Other specified postprocedural states; Z87.891 Personal history of nicotine dependence; I10 Essential (primary) hypertension; K21.9 Gastro-esophageal reflux disease without esophagitis; F41.9 Anxiety disorder, unspecified; F32.9 Major depressive disorder, single episode, unspecified
CPT/HCPCS: 99282; A9270-GY

== ENCOUNTER 2017-11-17 12:36 | Emergency (ER) | payer OTHER ==
--- OUTSIDE RECORDS SUMMARY | 2017-11-17 12:50 | XMS REPORT ---
:1970 External Reference #:[id number] Author Organization [place] [facility] Address [address] [address] Phone [phone] Care Team Providers Name Role Phone Felecia Heaton MD Primary Care Physician Unavailable Payers Type Date Identification Numbers Payment Provider Subscriber Commercial Policy Number: [id number] [facility] Kerry Calhoun PayID: [id number] [address] [place] [address] Workers Compensation Onset: 2017 Policy Number: State Insurance Kerry Calhoun [id number] Fund Group Number: [id number] [address] [address] Group Name: [id number] [place] [address] [place]ID: [id number] Workers [place] Onset: 2007 Policy Number: State Insurance Kerry Calhoun [id number] Fund Group Number: [id number] [address] [address] PayID: [id number] [place] [address] Workers Expires: Policy Number: State Insurance Kerry Calhoun Compensation 2016 [id number] Fund Onset: 2007 Group Number: [id number] [address] [address] [place]: [id number] [address] Problems Date Description Provider Status Onset: 05/21/2017 Traumatic rupture of unsp ligament of Kodak Olivo MD Active right wrist, subs Onset: 08/26/2017 Late effect of sprain AND/OR strain Kodak Olivo MD Active without tendon injury Family History Date Family Member(s) Problem(s) Comments General Uterine Cancer General Diabetes General Heart Disease General Hypertension General Depression Social History Type Date Description Comments Marital Status Lives With Occupation [employer] [employer] homes ETOH Use Denies alcohol use Smoking Patient is a former smoker Recreational Drug Use Denies Drug Use Exercise Type/Frequency Does not exercise Allergies, Adverse Reactions, Alerts Date Description Reaction Status Severity Comments 09/20/2010 Penicillin active 09/18/2016 Imitrex active 09/18/2016 Aleve active Medications Medication Date Status Form Strength Qnty SIG Indications Ordering Provider Sulfamethoxazole/T 11/04 Active Tablets 800-160mg 20tab 1 tab by Kodak rimethoprim s mouth MD Pallavi twice a day Tramadol HCL 10/21 Active Tablets 50mg 30tab 1-2 s tablets by MD Pallavi mouth every 6 hours as needed pain Cast 09/30 Active Misc 1unit right Kodak Protector/Full-Arm s upper MD Pallavi Adult extremity Lidoderm 04/21 Active Patches 5% 50uni apply ts daily as Salgado, needed for M.D. arm pain 12 hrs on, 12 hrs off Nucynta 06/06 Active Tablets 75mg 60tab 1 po q6hr s prn pain Naomi, Patrick Lisinopril Active Tablets 10mg 90tab 1 tab qd Unknown s po Meloxicam Active Tablets 15mg 1 by mouth every day Ropinirole HCL Active Tablets 0.25mg 2 tabs by mouth every at at bedtime as directed Magnesium Oxide Active Tablets 500mg take 1 tablet by mouth daily Omeprazole Active Capsules 40mg [address] every day Cymbalta Active Caps DR 30mg 1 by mouth Part every day Ketoconazole Active Cream 2% apply twice a week Epinephrine Active Solution 0.3mg/0.3 prn Francisco Auto-Inje ML Derrek perez MD Ferrous Sulfate Active Tablets 325mg 1 by mouth Unknown every day Colace Active Capsules 100mg 1 tab by Unknown / mouth 2-3 times a day as needed Hydrocodone-Acetam 09/30 Hx Tablets 5-325mg 30tab 1 or 2 Kodak ino s tabs by MD Pallavi - mouth 10/21 every 6- hours as needed for postop pain Hydrocodone-Acetam 11/16 Hx Tablets 5-325mg 30tab 1 or 2 Kodak ino s tabs by MD Pallavi - mouth 06/02 every - hours as needed for pain Hydrochlorothiazid Hx Tablets 25mg 30tab 1 po qd Unknown e /0000 s - 05/25 Lyrica Hx Capsules 75mg 60cap 1 po bid Unknown /0000 s - 09/02 Prevacid Hx Capsules 30mg 30cap 1 po qd Unknown /0000 DR menendez Pristiq Hx Tablets 180mg 30tab 1 po qd Unknown /0000 ER 24HR s - 05/25 Oxybutynin Hx Tablets 5mg 1 by mouth Unknown Chloride /0000 every day - 09/01 Lyrica Hx Capsules 100mg 1 by mouth Unknown /0000 three - times a Vitamin E Complex Hx Capsules 400Unit daily Unknown /0000 - 06/02 Colchicine Hx Capsules 0.6mg 2 by mouth Unknown /0000 every day - 06/02 Levocetirizine Hx Tablets 5mg Francisco, Dihydrochloride /0000 Derrek perez MD 04/28 Desloratadine Hx Tablets 5mg Singh, /0000 Derrek perez MD 04/28 Vitamin D Hx Capsules 41127Eufs take one Unknown (Ergocalciferol) /0000 capsule by - mouth once 06/23 Medications Administered in Office Medication Date Status Form Strength Qnty SIG Indications Ordering Provider Jorge 3 Administered Injection Kodak mg and 3mg 018 MD Jorge Olivo 3 Administered Injection Kodak mg and 3mg 018 MD Sabra Olivoestone 3 Administered Injection Kodak mg and 3mg 017 MD Jorge Olivo 3 Administered Injection Kodak mg and 3mg 017 MD Pallavi Depomedrol Administered Injection Sean M 40MG 017 MD Gonzalo Depomedrol Administered Injection Nichole 40MG 016 Patrick Salgado Depomedrol Administered Injection Nichole 80MG 015 Patrick Salgado Depomedrol Administered Injection Nichole 80MG 014 Patrick Salgado Depomedrol Administered Injection Nichole 80MG 013 Patrick Salgado Depomedrol Administered Injection Nichole 80MG 011 Patrick Salgado Depomedrol Administered Injection Nichole 80MG 011 Patrick Salgado Depomedrol Administered Injection Nichole 40MG José Miguel Salgado M.D. Depomedrol Administered Injection Nichole 80MG José Miguel Salgado M.D. Vital Signs Date Vital Result Comment 11/04/2017 Height 70 inches 5'10" Weight 284.00 lb Heart Rate 76 /min BP Systolic Sitting 108 mmHg BP Diastolic Sitting 70 mmHg Respiratory Rate 16 /min Pain Level 3 BMI (Body Mass Index) 40.7 kg/m2 10/31/2017 Height 70 inches 5'10" Weight 284.00 lb Heart Rate 109 /min BP Systolic Sitting 124 mmHg BP Diastolic Sitting 84 mmHg Respiratory Rate 18 /min Pain Level 7 BMI (Body Mass Index) 40.7 kg/m2 10/28/2017 Height 70 inches 5'10" Weight 284.00 lb Heart Rate 70 /min BP Systolic Sitting 142 mmHg BP Diastolic Sitting 86 mmHg Respiratory Rate 16 /min Pain Level 5 BMI (Body Mass Index) 40.7 kg/m2 10/21/2017 Height 70 inches 5'10" Weight 284.00 lb Heart Rate 84 /min BP Systolic Sitting 126 mmHg BP Diastolic Sitting 82 mmHg Respiratory Rate 16 /min Pain Level 5 BMI (Body Mass Index) 40.7 kg/m2 09/30/2017 Height 70 inches 5'10" Weight 275.00 lb Heart Rate 70 /min BP Systolic Sitting 130 mmHg BP Diastolic Sitting 72 mmHg Respiratory Rate 16 /min Body Temperature 99.3 F Pain Level 4 BMI (Body Mass Index) 39.5 kg/m2 08/26/2017 Height 70 inches 5'10" Weight 275.00 lb Heart Rate 70 /min BP Systolic Sitting 126 mmHg BP Diastolic Sitting 72 mmHg Respiratory Rate 16 /min Pain Level 4 BMI (Body Mass Index) 39.5 kg/m2 07/22/2017 Height 70 inches 5'10" Weight 275.00 lb Heart Rate 76 /min BP Systolic Sitting 126 mmHg BP Diastolic Sitting 68 mmHg Respiratory Rate 16 /min Pain Level 5 O2 % BldC Oximetry 98 % Ra BMI (Body Mass Index) 39.5 kg/m2 06/24/2017 Height 70 inches 5'10" Weight 275.00 lb Heart Rate 88 /min BP Systolic Sitting 124 mmHg BP Diastolic Sitting 82 mmHg Respiratory Rate 16 /min Pain Level 4 BMI (Body Mass Index) 39.5 kg/m2 06/03/2017 Height 70 inches 5'10" Heart Rate 72 /min BP Systolic 140 mmHg BP Diastolic 96 mmHg Respiratory Rate 20 /min Pain Level 0 05/21/2017 Height 70 inches 5'10" Weight 270.00 lb Heart Rate 78 /min Respiratory Rate 16 /min Body Temperature 98.0 F Pain Level 8 BMI (Body Mass Index) 38.7 kg/m2 04/29/2017 Height 70 inches 5'10" Weight 270.00 lb Heart Rate 72 /min BP Systolic Sitting 126 mmHg BP Diastolic Sitting 74 mmHg Respiratory Rate 16 /min Body Temperature 99.0 F Pain Level 3 BMI (Body Mass Index) 38.7 kg/m2 04/01/2017 Height 70 inches 5'10" Weight 270.00 lb Heart Rate 72 /min BP Systolic Sitting 126 mmHg BP Diastolic Sitting 80 mmHg Respiratory Rate 16 /min Pain Level 6 BMI (Body Mass Index) 38.7 kg/m2 03/04/2017 Height 70 inches 5'10" Weight 270.12 lb Heart Rate 80 /min BP Systolic Sitting 118 mmHg BP Diastolic Sitting 76 mmHg Respiratory Rate 18 /min Pain Level 5 BMI (Body Mass Index) 38.8 kg/m2 02/04/2017 Height 70 inches 5'10" Weight 265.00 lb Heart Rate 60 /min BP Systolic Sitting 140 mmHg BP Diastolic Sitting 90 mmHg Respiratory Rate 12 /min Pain Level 4 BMI (Body Mass Index) 38.0 kg/m2 01/17/2017 Height 70 inches 5'10" Weight 264.00 lb Heart Rate 78 /min BP Systolic 118 mmHg BP Diastolic 62 mmHg Respiratory Rate 16 /min Pain Level 2 BMI (Body Mass Index) 37.9 kg/m2 01/07/2017 Height 70 inches 5'10" Weight 270.00 lb Heart Rate 93 /min BP Systolic 116 mmHg BP Diastolic 68 mmHg Respiratory Rate 16 /min Pain Level 6 nothing for pain O2 % BldC Oximetry 96 % Ra BMI (Body Mass Index) 38.7 kg/m2 09/18/2016 Height 70 inches 5'10" Weight 274.00 lb Heart Rate 66 /min BP Systolic 128 mmHg BP Diastolic 92 mmHg Respiratory Rate 18 /min Body Temperature 98.2 F BMI (Body Mass Index) 39.3 kg/m2 09/02/2016 Height 70 inches 5'10" Weight 174.00 lb Heart Rate 70 /min BP Systolic Sitting 122 mmHg BP Diastolic Sitting 80 mmHg Respiratory Rate 18 /min BMI (Body Mass Index) 25.0 kg/m2 10/04/2015 Heart Rate 82 /min BP Systolic Sitting 128 mmHg BP Diastolic Sitting 88 mmHg 04/26/2015 Weight 270.00 lb Heart Rate 80 /min BP Systolic Sitting 124 mmHg BP Diastolic Sitting 88 mmHg 05/25/2014 Weight 270.00 lb Heart Rate 80 /min Results Test Date Test Result H/L Range Note Laboratory test 10/09/2017 Surgical Pathology SEE RESULT BELOW 1, 2 finding Laboratory test 05/08/2017 Surgical Pathology SEE RESULT BELOW 3, 4 finding Xray 02/04/2017 Wrist Left 3+ VWS <pending> 1 [id number] 2 SEE RESULT BELOW Name: KERRY CALHOUN : [address]: Kodak Olivo MD Acct: [id number] Unit: [id number] AGE: 47 Location: [facility] Re10/09/17 SEX: F Status: LORI RUIZC SPEC: [id number] TIO: 10/09/17-[address] [facility] [address]: Kodak Olivo MD REQ: [id number] RECD: 10/09/17 STATUS: SOUT _ ORDERED: LEVEL 2 COMMENTS: [id number] FINAL DIAGNOSIS Posterior interosseous nerve right wrist, excision: -- Nerve tissue with architectural disorder compatible with trauma. PRE-OPERATIVE DIAGNOSIS Traumatic rupture of ligament right wrist GROSS DESCRIPTION The specimen is received in formalin labeled, Posterior Interosseous Nerve Right Wrist, and consists of two sher-white irregular to cylindrical soft tissue fragments measuring 1.2 by up to 0.3 x 0.1 cm and 1.7 x 0.2 x 0.1 cm. Kindergarten Aide sections, one cassette. Signed (signature on file) Dusty Lloyd MD 1125 END OF REPORT DEPARTMENT OF PATHOLOGY, [address] [place] [address] Dusty Lloyd M.D. Director [facility] # [id number] 3 [id number] SEE RESULT BELOW Name: KERRY CALHOUN : [address]: Kodak Olivo MD Acct: [id number] Unit: [id number] AGE: 46 Location: [facility] Re05/08/17 SEX: F Status: LORI RUIZC SPEC: [id number] TIO: 05/08/17-[address] [facility] [address]: Kodak Olivo MD REQ: [id number] RECD: 05/09/17 STATUS: SOUT _ ORDERED: LEVEL 3/2 COMMENTS: [id number] FINAL DIAGNOSIS 1. Soft tissue, first dorsal compartment right wrist, excision: -- Chronic tenosynovitis with fibrosis. 2. Soft tissue, right wrist, excision: -- Ganglion cyst. PRE-OPERATIVE DIAGNOSIS Right wrist dorsal synovitis and triangular fibrocartilage tear with de Quervain's disease GROSS DESCRIPTION 1. The specimen is received in formalin labeled, First Dorsal Compartment Tenosynovitis Right Wrist, and consists of two sher-white irregular rubbery fibrous tissue fragments measuring 0.6 by up to 0.3 x 0.1 cm and 1.5 by up to 0.5 x 0.2 cm which are submitted entirely in one cassette. 2. The specimen is received in formalin labeled, Tendon Sheath Ganglion Right Wrist, and consists of a 0.2 x 0.2 x 0.2 cm sher-white ovoid rubbery fibrous tissue fragment which is submitted entirely in one cassette. Signed (signature on file) Dusty Lloyd MD 1303 END OF REPORT * ML=Testing performed at Main Lab DEPARTMENT OF PATHOLOGY, [address] [place] [address] Dusty Lloyd M.D. Director [facility] # [id number] Procedures Date CPT Code Description Status 10/28/2017 24040 Short Arm Cast Application Completed 10/21/2017 07970 Short Arm Cast Application Completed 10/09/2017 07098 Transection/Avulsion, Spinal Nerve, Extradural Completed 10/09/2017 39791 Transection/Avulsion, Spinal Nerve, Extradural Completed 10/09/2017 08419 Capsulorrhaphy/Reconstruction Wrist For Carpal Completed Instability,open 10/09/2017 59586 Capsulorrhaphy/Reconstruction Wrist For Carpal Completed Instability,open 10/09/2017 18110 Capsulorrhaphy/Reconstruction Wrist For Carpal Completed Instability,open 08/26/2017 03923 Rad Exam; Wrist, Comp, Min 3 Views Completed 07/22/2017 25141 Inject/Drain Joint/Bursa Intermediate Completed 07/22/2017 48961 Rad Exam; Hand Comp Completed 06/24/2017 99739 Inject/Drain Joint/Bursa Small Completed 05/08/2017 30393 Arthroscopy Wrist Synovectomy Partial Completed 05/08/2017 48587 Arthroscopy Wrist Synovectomy Partial Completed 05/08/2017 37376 Arthroscopy Wrist Synovectomy Partial Completed 05/08/2017 89963 Arthroscopy Wrist Diagnostic Completed 05/08/2017 34397 Dequervains-Tendon Sheath Incision/Extensor Completed Sheath,Wrist 05/08/2017 96277 Dequervains-Tendon Sheath Incision/Extensor Completed Sheath,Wrist 03/04/2017 59537 Inject Tendon Sheath Or Ligament Aponeurosis Eg Plantar Completed Fascia 03/04/2017 32449 Inject/Drain Joint/Bursa Intermediate Completed 02/04/2017 26131 Rad Exam; Wrist, Comp, Min 3 Views Completed 01/17/2017 09628 Rad Exam; Wrist, Comp, Min 3 Views Completed 01/07/2017 91188 Closed TX Scaphoid (Navicular) W/O Manipulation Completed 01/07/2017 29797 Closed TX Scaphoid (Navicular) W/O Manipulation Completed 09/18/2016 08163 Anoscopy Completed 09/02/2016 56958 Inject Tendon Sheath Or Ligament Aponeurosis Eg Plantar Completed Fascia 10/04/2015 59872 Inject Tendon Sheath Or Ligament Aponeurosis Eg Plantar Completed Fascia 10/04/2015 32250 Inject Tendon Sheath Or Ligament Aponeurosis Eg Plantar Completed Fascia 04/26/2015 33208 Inject Tendon Sheath Or Ligament Aponeurosis Eg Plantar Completed Fascia 05/25/201413009 Inject/Drain Joint/Bursa Major Completed 05/25/201473428 Inject Tendon Sheath Or Ligament Aponeurosis Eg Plantar Completed Fascia 07/12/201395461 Inject Tendon Sheath Or Ligament Aponeurosis Eg Plantar Completed Fascia 08/12/201228291 Inject Tendon Sheath Or Ligament Aponeurosis Eg Plantar Completed Fascia 06/06/201122969 Inject Tendon Sheath Or Ligament Aponeurosis Eg Plantar Completed Fascia 02/07/201115981 Inject Tendon Sheath Or Ligament Aponeurosis Eg Plantar Completed Fascia 11/08/201053854 Inject Tendon Sheath Or Ligament Aponeurosis Eg Plantar Completed Fascia Encounters Type Date Location Provider CPT E/M Dx Office Visit 08/26/2017 [place] [address] S63.301D 9:45a Of [facility] Office Visit 04/01/2017 [place] [address] M65.4 8:[address]a Of [facility] [place] S63.301D Office Visit 03/04/2017 8:45a [place] [address] S63.301D Of [facility] M65.4 Office Visit 02/04/2017 8:30a [place] [address] [facility] [place] M25.532 Office Visit 09/18/2016 9:30a [facility] Nick Reinoso, [address] K60.2 Of [facility] Office Visit 09/02/2016 9:00a [facility] [place] Sean Sán[place] [address] G56.32 Of [facility] Office Visit 05/25/2014 10:00a [facility] Nichole Salgado [address] 719.43 [facility] 11/26/2013 2:51p [place] Whit Romo M.D. [address] [facility] Office Visit 04/21/2013 8:45a [facility] Nichole Salgado 30548 354.3 [facility] 719.43 Office Visit 08/12/2012 3:00p [facility] Of Nichole Salgado 83271 354.3 [facility] 719.43 Office Visit 02/07/2011 10:30a [facility] Nichole Salgado 57040 354.3 Robert Nguyen 719.43 Office Visit 11/08/2010 9:30a [facility] Nichole Salgado 92381 354.3 Robert Nguyen Office Visit 09/20/2010 10:30a [facility] Nichole Salgado 18628 354.3 Robert Nguyen 354.3 Plan of Care Future Appointment(s):11/21/2017 8:30 am - [facility]
--- OUTSIDE RECORDS SUMMARY | 2017-11-17 12:50 | XMS REPORT ---
:1970 External Reference #:[id number] Author Organization [facility] Address [address] [address] Phone [phone] Care Team Providers Name Role Phone Felecia Heaton MD Primary Care Physician Unavailable Payers Type Date Identification Numbers Payment Provider Subscriber Commercial Policy Number: [id number] [facility] Kerry Calhoun PayID: [id number] [address] [place] [address] Workers Compensation Onset: 2017 Policy Number: State Insurance Kerry Calhoun [id number] Fund Group Number: [id number] [address] [address] Group Name: [id number] [place] [address] PayID: [id number] Workers Compensation Onset: 2007 Policy Number: State Insurance Kerry Calhoun [id number] Fund Group Number: [id number] [address] [address] PayID: [id number] [place] [address] Workers Expires: Policy Number: State Insurance Kerry Calhoun Compensation 2016 [id number] Fund Onset: 2007 Group Number: [id number] [address] [address] PayID: [id number] [address] Problems Date Description Provider Status Onset: 05/21/2017 [...] Description Comments Marital Status Lives With 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 ETOH Use Denies alcohol use Smoking Patient is a former smoker Recreational Drug Use Denies Drug Use Exercise Type/Frequency Does not exercise Allergies, Adverse Reactions, Alerts Date Description Reaction Status Severity Comments 09/20/2010 Penicillin active 09/18/2016 Imitrex active 09/18/2016 Aleve active Medications Medication Date Status Form Strength Qnty SIG Indications Ordering Provider Tramadol HCL 10/21 Active Tablets 50mg 30tab [...] 1 po q6hr s prn pain Naomi, MMatthewDMatthew Lisinopril Active Tablets 10mg 90tab 1 tab qd s po Meloxicam Active Tablets 15mg 1 by mouth every day Ropinirole HCL Active Tablets 0.25mg 2 tabs by Unknown / mouth every at at bedtime as directed [...] Sulfate Active Tablets 325mg 1 by mouth every day Colace Active Capsules 100mg 1 tab by /0000 mouth 2-3 times a day as needed Hydrocodone-Acetam 09/30 Hx Tablets 5-325mg 30tab 1 or 2 Kodak marina s tabs by MD Pallavi - mouth 10/21 every - hours as needed for postop pain Hydrocodone-Acetam 05/08 Hx Tablets 5-325mg 30tab 1 or 2 Kodak marina s tabs by MD Pallavi - mouth 06/02 every - hours as needed for pain Hydrochlorothiazid Hx Tablets 25mg 30tab 1 po qd Unknown e s - 05/25 Lyrica Hx Capsules 75mg 60cap 1 po bid Unknown / s - 09/02 Prevacid Hx Capsules 30mg 30cap 1 po qd Unknown / DR menendez Pristiq Hx Tablets 180mg 30tab 1 po qd Unknown ER 24HR s - 05/25 Oxybutynin Hx Tablets 5mg 1 by mouth Unknown Chloride every day - 09/01 Lyrica Hx Capsules 100mg 1 by mouth Unknown three - times a Vitamin E Complex Hx Capsules 400Unit daily Unknown - 06/02 Colchicine Hx Capsules 0.6mg 2 by mouth Unknown every day - 06/02 Levocetirizine Hx Tablets 5mg Francisco Dihydrochloride / Derrek perez MD 04/28 Desloratadine Hx Tablets 5mg Singh, / Derrek perez MD 04/28 Vitamin D Hx Capsules 87925Yxmo take one Unknown (Ergocalciferol) /0000 capsule by - mouth once 06/23 Medications Administered in Office Medication Date Status Form Strength Qnty SIG Indications Ordering Provider [facility] 3 Administered Injection Kodak mg and 3mg 018 MD Sabra [facility] 3 Administered Injection Kodak mg and 3mg 018 MD Sabra [facility] 3 Administered Injection Kodak mg and 3mg 017 MD Sabra [facility] 3 Administered Injection Kodak mg and 3mg 017 MD Pallavi Depomedrol Administered Injection Sean M 40MG 017 MD Gonzalo Depomedrol Administered Injection Nichole 40MG 016 Patrick Salgado Depomedrol Administered Injection Nichole 80MG 015 Patrick Salgado Depomedrol Administered Injection Nichole 80MG 014 Patrick Salgado Depomedrol Administered Injection Nichole 80MG 013 Patrick Salgado Depomedrol Administered Injection Nichole 80MG José Miguel Salgado M.D. Depomedrol Administered Injection Nichole 80MG 011 Patrick Salgado Depomedrol Administered Injection Nichole 40MG José Miguel Salgado M.D. Depomedrol Administered Injection Nichole 80MG José Miguel Salgado M.D. Vital Signs Date Vital Result Comment 10/31/2017 Height 70 inches 5'10" Weight 284.00 [...] 02/04/2017 Wrist Left 3+ VWS <pending> 1 [id number] 2 SEE RESULT BELOW Name: KERRY CALHOUN : [address]: Kodak Olivo MD Acct: [id number] Unit: [id number] AGE: 47 Location: [facility] Re10/09/17 SEX: F [place] [facility] SPEC: [id number] TIO: 10/09/17-[address] [facility] [address]: Kodak Olivo MD REQ: [id number] RECD: 10/09/17 STATUS: SOUT _ ORDERED: LEVEL 2 COMMENTS: [id number] FINAL DIAGNOSIS Posterior interosseous nerve right wrist, [...] and 1.7 x 0.2 x 0.1 cm. 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 Signed (signature on file) Dusty Lloyd MD 1125 END OF REPORT DEPARTMENT OF PATHOLOGY, [address] [place] [address] Dusty Lloyd M.D. Director [facility] # [id number] 3 [id number] 4 SEE RESULT BELOW Name: KERRY CALHOUN : [address]: Kodak Olivo MD Acct: [id number] Unit: [id number] AGE: 46 Location: [facility] Re05/08/17 SEX: F Status: LORI SDC SPEC: [id number] TIO: 05/08/17-[address]: Kodak Olivo MD REQ: [id number] RECD: 05/09/17 STATUS: SOUT _ ORDERED: LEVEL 3/2 COMMENTS: [id number] FINAL DIAGNOSIS 1. Soft tissue, first dorsal [...] performed at Main Lab DEPARTMENT OF PATHOLOGY, [address] [place] [address] Dusty Lloyd M.D. Director [facility] # [id number] Procedures Date CPT Code Description Status 10/28/2017 69259 Short Arm Cast Application Completed 10/21/2017 24931 Short Arm Cast Application Completed 10/09/2017 74643 Transection/Avulsion, Spinal Nerve, Extradural Completed 10/09/2017 52891 Transection/Avulsion, Spinal Nerve, Extradural Completed 10/09/2017 49489 Capsulorrhaphy/Reconstruction Wrist For Carpal Completed Instability,open 10/09/2017 67786 Capsulorrhaphy/Reconstruction Wrist For Carpal Completed Instability,open 10/09/2017 24933 Capsulorrhaphy/Reconstruction Wrist For Carpal Completed Instability,open 08/26/2017 09324 Rad Exam; Wrist, Comp, Min 3 Views Completed 07/22/2017 04128 Inject/Drain Joint/Bursa Intermediate Completed 07/22/2017 26304 Rad Exam; Hand Comp Completed 06/24/2017 19119 Inject/Drain Joint/Bursa Small Completed 05/08/2017 19644 Arthroscopy Wrist Synovectomy Partial Completed 05/08/2017 53991 Arthroscopy Wrist Synovectomy Partial Completed 05/08/2017 62895 Arthroscopy Wrist Synovectomy Partial Completed 05/08/2017 14434 Arthroscopy Wrist Diagnostic Completed 05/08/2017 91647 Dequervains-Tendon Sheath Incision/Extensor Completed Sheath,Wrist 05/08/2017 87183 Dequervains-Tendon Sheath Incision/Extensor Completed Sheath,Wrist 03/04/2017 73395 Inject Tendon Sheath Or Ligament Aponeurosis Eg Plantar Completed Fascia 03/04/2017 39279 Inject/Drain Joint/Bursa Intermediate Completed 02/04/2017 16389 Rad Exam; Wrist, Comp, Min 3 Views Completed 01/17/2017 95810 Rad Exam; Wrist, Comp, Min 3 Views Completed 01/07/2017 56913 Closed TX Scaphoid (Navicular) W/O Manipulation Completed 01/07/2017 99583 Closed TX Scaphoid (Navicular) W/O Manipulation Completed 09/18/2016 07758 Anoscopy Completed 09/02/2016 87202 Inject Tendon Sheath Or Ligament Aponeurosis Eg Plantar Completed Fascia 10/04/2015 51840 Inject Tendon Sheath Or Ligament Aponeurosis Eg Plantar Completed Fascia 10/04/2015 99662 Inject Tendon Sheath Or Ligament Aponeurosis Eg Plantar Completed Fascia 04/26/2015 32887 Inject Tendon Sheath Or Ligament Aponeurosis Eg Plantar Completed Fascia 05/25/2014 78759 Inject/Drain Joint/Bursa Major Completed 05/25/2014 85234 Inject Tendon Sheath Or Ligament Aponeurosis Eg Plantar Completed Fascia 07/12/2013 05702 Inject Tendon Sheath Or Ligament Aponeurosis Eg Plantar Completed Fascia 08/12/2012 24501 Inject Tendon Sheath Or Ligament Aponeurosis Eg Plantar Completed Fascia 06/06/201153117 Inject Tendon Sheath Or Ligament Aponeurosis Eg Plantar Completed Fascia 02/07/201136227 Inject Tendon Sheath Or Ligament Aponeurosis Eg Plantar Completed Fascia 11/08/201076429 Inject Tendon Sheath Or Ligament Aponeurosis Eg Plantar Completed Fascia Encounters Type Date Location Provider CPT E/M Dx Office Visit 08/26/2017 [place] [address] S63.301D 9:45a Of [facility] Office Visit 04/01/2017 [place] [address] M65.4 8:30a Of [facility] S63.301D Office Visit 03/04/2017 8:45a [place] [address] S63.301D Of [facility] M65.4 Office Visit 02/04/2017 8:30a [place] [address] S63.301A Of [facility] M25.532 Office Visit 09/18/2016 9:30a [facility] Nick Reinoso, [address] K60.2 Of [facility] M.DMatthew Office Visit 09/02/2016 9:00a Orth[facility] Services Sean Sán[place] [address] G56.32 Of [facility] Office Visit 05/25/2014 10:00a [facility] Nichole Salgado [address] 719.43 [facility] 11/26/2013 2:51p [facility] Chelsea Romo M.D. 00186 346.93 Services Of [facility] Office Visit 04/21/2013 8:45a [facility] Nichole Salgado 94[address] 354.3 [facility] Office Visit 08/12/2012 3:00p [facility] 79697 354.3 [facility] 02/07/2011 10:30a [facility] Nichole Salgado 06358 354.3 Robert Nguyen 719.43 Office Visit 11/08/2010 9:30a [facility] Nichole Salgado 17157 354.3 Robert Nguyen Office Visit 09/20/2010 10:30a [facility] Nichole Salgado 27206 354.3 Robert Leigh. 354.3 Plan of Care Future Appointment(s):11/04/2017 8:00 am - Kodak Olivo MD at [facility] Of [facility] AT Vdqmwafl85/22/2018 10:45 am - Kodak Olivo MD at [facility] Of [facility] AT Ekznzzte24/11/2018 - Sean Sánchez, MDS63.301D Traumatic rupture of unsp ligament of right wrist, subsFollow up:Follow up: pallavi next week
--- OUTSIDE RECORDS SUMMARY | 2017-11-17 12:51 | XMS REPORT ---
:1970 External Reference #:[id number] Author Organization [facility] Address [address] [address] Phone [phone] Care Team Providers Name Role Phone Felecia Heaton MD Primary Care Physician Unavailable Payers Type Date Identification Numbers Payment Provider Subscriber Commercial Policy Number: [id number] [facility] Kerry Calhoun PayID: [id number] [address] [place] [address] Workers Compensation Onset: 2017 Policy Number: State Insurance Kerry Calhoun [id number] Fund Group Number: [id number] [address] [address] Group Name: [id number] [place] [address] PayID: [id number] Workers Compensation Onset: 2007 Policy Number: State Insurance Kerry Calhoun [id number] Fund Group Number: [id number] [address] [address] PayID: [id number] [place] [address] Workers Expires: Policy Number: State Insurance Kerry Calhoun Compensation 2016 [id number] Fund Onset: 2007 Group Number: [id number] [address] [address] PayID: [id number] [address] Problems Date Description Provider Status Onset: 05/21/2017 [...] Description Comments Marital Status 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 ETOH Use Denies alcohol use Smoking Patient is a former smoker Recreational Drug Use Denies Drug Use Exercise Type/Frequency Does not exercise Allergies, Adverse Reactions, Alerts Date Description Reaction Status Severity Comments 09/20/2010 Penicillin active 09/18/2016 Imitrex active 09/18/2016 Aleve active Medications Medication Date Status Form Strength Qnty SIG Indications Ordering Provider Hydrocodone-Acetam 09/30 Active Tablets 5-325mg 30tab 1 or 2 Kodak marina s tabs by MD Pallavi mouth every 6-8 hours as needed for postop pain Cast 09/30 Active Misc 1unit right Kodak Protector/Full-Arm s upper MD Pallavi Adult extremity Lidoderm 04/21 Active Patches 5% 50uni apply ts daily as Salgado, needed for M.D. arm pain 12 hrs on, 12 hrs off Nucynta 06/06 Active Tablets 75mg 60tab 1 po q6hr s prn pain Salgado, M.D. Lisinopril Active Tablets 10mg 90tab 1 tab [...] Active Caps DR 30mg 1 by mouth / Part every day Ketoconazole Active Cream 2% apply twice a week Epinephrine Active Solution 0.3mg/0.3 prn Francisco Auto-Inje ML Derrek perez MD Ferrous Sulfate Active Tablets 325mg 1 by mouth every day Colace Active Capsules 100mg 1 tab by Unknown /0000 mouth 2-3 times a day as needed Hydrocodone-Acetam 05/08 Hx Tablets 5-325mg 30tab 1 or 2 Kodak marina s tabs by MD Pallavi - mouth 06/02 every - hours as needed for pain Hydrochlorothiazid Hx Tablets 25mg 30tab 1 po qd Unknown s - 05/25 Lyrica Hx Capsules 75mg 60cap 1 po bid Unknown / s - 09/02 Prevacid Hx Capsules 30mg 30cap [address] menendez Pristiq Hx Tablets 180mg 30tab 1 po qd ER 24HR s - 05/25 Oxybutynin Hx Tablets 5mg 1 by mouth Unknown Chloride every day - 09/01 Lyrica Hx Capsules 100mg 1 by mouth three - times a Vitamin E Complex Hx Capsules 400Unit daily - 06/02 Colchicine Hx Capsules 0.6mg 2 by mouth every day - 06/02 Levocetirizine Hx Tablets 5mg Francisco Dihydrochloride Derrek perez MD 04/28 Desloratadine Hx Tablets 5mg Singh, Derrek perez MD 04/28 Vitamin D Hx Capsules 17027Skdx take one Unknown (Ergocalciferol) / capsule by - mouth once 06/23 Medications Administered in Office Medication Date Status Form Strength Qnty SIG Indications Ordering Provider [facility] 3 Administered Injection Kodak mg and 3mg [...] Salgado Depomedrol Administered Injection Nichole 80MG 011 Lu Salgado. Depomedrol Administered Injection Nichole 40MG José Miguel Salgado M.D. Depomedrol Administered Injection Nichole 80MG José Miguel Salgdao M.D. Vital Signs Date Vital Result Comment 10/21/2017 Height 70 inches 5'10" Weight 284.00 [...] 02/04/2017 Wrist Left 3+ VWS <pending> 1 [id number] 2 SEE RESULT BELOW Name: KERRY CALHOUN : [address]: Kodak Olivo MD Acct: [id number] Unit: [id number] AGE: 47 Location: [facility] Re10/09/17 SEX: F Status: DEP SDC SPEC: [id number] TIO: 10/09/17-[address] [facility] [address]: Kodak Olivo MD REQ: [id number] RECD: 10/09/17 STATUS: SOUT _ ORDERED: LEVEL 2 COMMENTS: [id number] FINAL DIAGNOSIS Posterior interosseous nerve right wrist, [...] and 1.7 x 0.2 x 0.1 cm. Paper Reeler sections, one cassette. Signed (signature on file) Dusty Lloyd MD 1125 END OF REPORT DEPARTMENT OF PATHOLOGY, [address] [place] [address] Dusty Lloyd M.D. Director [facility] # [id number] 3 [id number] 4 SEE RESULT BELOW Name: KERRY CALHOUN : [address]: Kodak Olivo MD Acct: [id number] Unit: [id number] AGE: 46 Location: [facility] Re05/08/17 SEX: F Status: [facility] SPEC: [id number] TIO: 05/08/[address] [facility] [address]: Kodak Olivo MD REQ: [id number] RECD: 05/09/17 STATUS: SOUT _ ORDERED: LEVEL 3/2 COMMENTS: [id number] FINAL DIAGNOSIS 1. Soft tissue, first dorsal [...] performed at Main Lab DEPARTMENT OF PATHOLOGY, [address] [place] [address] Dusty Lloyd M.D. Director [facility] # [id number] Procedures Date CPT Code Description Status 10/21/2017 42457 Short Arm Cast Application Completed 10/09/2017 21872 Transection/Avulsion, Spinal Nerve, Extradural Completed 10/09/2017 57324 Transection/Avulsion, Spinal Nerve, Extradural Completed 10/09/2017 51114 Capsulorrhaphy/Reconstruction Wrist For Carpal Completed Instability,open 10/09/2017 70001 Capsulorrhaphy/Reconstruction Wrist For Carpal Completed Instability,open 10/09/2017 00185 Capsulorrhaphy/Reconstruction Wrist For Carpal Completed Instability,open 08/26/2017 57923 Rad Exam; Wrist, Comp, Min 3 Views Completed 07/22/2017 35697 Inject/Drain Joint/Bursa Intermediate Completed 07/22/2017 64694 Rad Exam; Hand Comp Completed 06/24/2017 92546 Inject/Drain Joint/Bursa Small Completed 05/08/2017 53690 Arthroscopy Wrist Synovectomy Partial Completed 05/08/2017 58369 Arthroscopy Wrist Synovectomy Partial Completed 05/08/2017 66203 Arthroscopy Wrist Synovectomy Partial Completed 05/08/2017 99678 Arthroscopy Wrist Diagnostic Completed 05/08/2017 42188 Dequervains-Tendon Sheath Incision/Extensor Completed Sheath,Wrist 05/08/2017 11678 Dequervains-Tendon Sheath Incision/Extensor Completed Sheath,Wrist 03/04/2017 50557 Inject Tendon Sheath Or Ligament Aponeurosis Eg Plantar Completed Fascia 03/04/2017 23195 Inject/Drain Joint/Bursa Intermediate Completed 02/04/2017 27842 Rad Exam; Wrist, Comp, Min 3 Views Completed 01/17/2017 91660 Rad Exam; Wrist, Comp, Min 3 Views Completed 01/07/2017 52287 Closed TX Scaphoid (Navicular) W/O Manipulation Completed 01/07/2017 02642 Closed TX Scaphoid (Navicular) W/O Manipulation Completed 09/18/2016 17160 Anoscopy Completed 09/02/2016 33657 Inject Tendon Sheath Or Ligament Aponeurosis Eg Plantar Completed Fascia 10/04/2015 86560 Inject Tendon Sheath Or Ligament Aponeurosis Eg Plantar Completed Fascia 10/04/2015 35126 Inject Tendon Sheath Or Ligament Aponeurosis Eg Plantar Completed Fascia 04/26/2015 17445 Inject Tendon Sheath Or Ligament Aponeurosis Eg Plantar Completed Fascia 05/25/2014 01573 Inject/Drain Joint/Bursa Major Completed 05/25/2014 19983 Inject Tendon Sheath Or Ligament Aponeurosis Eg Plantar Completed Fascia 07/12/2013 76559 Inject Tendon Sheath Or Ligament Aponeurosis Eg Plantar Completed Fascia 08/12/2012 74798 Inject Tendon Sheath Or Ligament Aponeurosis Eg Plantar Completed Fascia 06/06/2011 12967 Inject Tendon Sheath Or Ligament Aponeurosis Eg Plantar Completed Fascia 02/07/2011 21267 Inject Tendon Sheath Or Ligament Aponeurosis Eg Plantar Completed Fascia 11/08/2010 65154 Inject Tendon Sheath Or Ligament Aponeurosis Eg Plantar Completed Fascia Encounters Type Date Location Provider CPT E/M Dx Office Visit 08/26/2017 [place] [address] S63.301D 9:45a Of [facility] Office Visit 04/01/2017 [place] [address] M65.4 8:30a Of [facility] S63.301D Office Visit 03/04/2017 8:45a [place] [address] S63.301D Of [facility] M65.4 Office Visit 02/04/2017 8:30a [place] [address] S63.301A Of [facility] M25.532 Office Visit 09/18/2016 9:30a [facility] AbhiMatthew Reinoso, 80886 K60.2 Of [facility].D. Office Visit 09/02/2016 9:00a Orth[facility] Services Sean Sán[place] [address] G56.32 Of [facility] Office Visit 05/25/2014 10:00a [facility] Nichole Salgado 65061 719.43 Of [facility] 354.3 Office Visit 11/26/2013 2:51p [facility] Chelsea Romo M.D. 36541 346.93 Services Of [facility] Office Visit 04/21/2013 8:45a [facility] Nichole Salgado 09978 354.3 Of [facility] 719.43 Office Visit 08/12/2012 3:00p [facility] Of Nichole Salgado 13786 354.3 [facility] 719.43 Office Visit 02/07/2011 10:30a [facility] Nichole Salgado 11636 354.3 [facility] M.DMatthew 719.43 Office Visit 11/08/2010 9:30a [facility] Nichole Salgado 02495 354.3 [facility] M.DMatthew Office Visit 09/20/2010 10:30a [facility] Nichole Salgado 81336 354.3 [facility] M.DMatthew 354.3 Plan of Care Future Appointment(s):11/11/2017 10:45 am - Kodak Olivo MD at [facility] At Lrreuzsd83/01/2018 - Kodak Olivo MDS63.301D Traumatic rupture of unsp ligament of right wrist, subsFollow up:Follow up: 3 weeks
--- OUTSIDE RECORDS SUMMARY | 2017-11-17 12:52 | XMS REPORT ---
:1970 External Reference #:[id number] Author Organization [facility] Address [address], [address] [place] [address] Phone [phone] Care Team Providers Name Role Phone Felecia Heaton M.D. 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 Primary Care Physician Unavailable Payers Type Date Identification Numbers Payment Provider Subscriber Commercial Policy Number: [id number] [facility] Kerry Calhoun PayID: [id number] [address] [place] [address] Commercial Expires: 2015 Policy Number: [facility] [employer] TRAY Calhoun [id number] PayID: [id number] [address] [place] [address] Medicaid Expires: 2015 Policy Number: [id number] Medicaid Kerry Calhoun PayID: [id number] [address] [place] [address] Workers Compensation Onset: 2013 Policy Number: [employer] Kerry S [id number] [employer] Name: fax - [phone] [place] [address] [id number] PayID: [id number] [place] [address] Commercial Expires: 2015 Policy Number: [employer] TRAY Calhoun [id number] PayID: [id number] [address] [place] [address] Problems Date Description Provider Status Onset: 09/17/2013 Enthesopathy Hany Chavez M.D., Active FACS Onset: 05/24/2011 Single major depressive episode Felicia Hernandez FNP Active Onset: 05/24/2011 Gastroesophageal reflux disease Felicia Hernandez FNP Active Onset: 05/24/2011 Irritable bowel syndrome Felicia Hernandez FNP Active Onset: 05/24/2011 Benign essential hypertension Felicia Hernandez FNP Active Onset: 05/24/2011 Obesity Felicia Hernandez FNP Active Onset: 01/11/2016 Fibromyalgia Felecia Heaton M.D. Active Onset: 09/17/2017 Restless legs Felecia Heaton M.D. Active Onset: 09/17/2017 Vitamin D deficiency Felecia Heaton M.D. 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 Inactive Inactive: 03/29/2016 Onset: 12/12/2014 Temporomandibular joint crepitus Marcella Orr MD Inactive Inactive: 03/29/2016 Onset: 12/12/2014 Myalgia & Myositis Unspec Marcella Orr MD Inactive Inactive: 03/29/2016 Onset: 02/13/2016 Primary fibromyalgia syndrome Felecia Heaton M.D. Inactive Inactive: 03/29/2016 Onset: 05/24/2011 Headache Felicia Hernandez FNP Inactive Inactive: 03/29/2016 Family History Date Family Member(s) Problem(s) Comments Father Heart Disease Father Heart Attack Father Vavle replacment Mother Gallstones Children 1 Children 1 daughter, 2 adopted sons (were foster) Grandfather Diabetes Social History Type Date Description Comments Lives With Lives With Children Diet Healthy, Well Balanced Occupation [employer] Cigarette Use 1998 Quit ETOH Use Rarely consumes alcohol Recreational Drug Use Denies Drug Use Smoking Patient is a former smoker Allergies, Adverse Reactions, Alerts Date Description Reaction Status Severity Comments 03/14/2011 Penicillin active 05/04/2014 Imitrex active elevated bp 09/13/2016 Aleve Hives active Medications Medication Date Status Form Strength Qnty SIG Indications Ordering Provider Phendimetrazine 10/21 Active Caps ER 105mg 30cap 105 mg E66.9 Felecia Tartrate 24HR s once Patrick Heaton daily 30 to 60 minutes before morning meal. Reference #: [id number] Ferrous Sulfate 09/19 Active Tablets 325(65Fe) 60tab take one mg s tablet by Patrick Heaton mouth twice a day Colace 09/19 Active Capsules 100mg 60cap 1 tab by Felecia s irene Heaton M.D. twice a day as needed for constipat ion Citalopram 07/22 Active Tablets 20mg 30tab Take F33.1 Felecia Hydrobromide s One-Half Patrick Heaton Tablet By Mouth Every Day For 1 Week, Then 1 Tablet Daily Duloxetine HCL 04/[address] 60mg 90cap 1 by F41.9 Part s irene Heaton M.D. every day Meloxicam 05/02 Active Tablets 15mg 90tab 1 by Felecia s irene Heaton M.D. every day prn pain Requip 08/17 Active Tablets 0.25mg 180ta 2 by bs mouth at Patrick Heaton at bedtime Magnesium Oxide 12/12 Active Tablets 500mg 90tab 1 by s irene Heaton M.D. every day Omeprazole 12/[address] 40mg 90cap take one s capsule Patrick Heaton by mouth every day Lisinopril Active Tablets 10mg 90tab 1 by s irene Heaton M.D. every day Lidocaine Active Ointment 5% Schwed, id A Patrick Nystatin Active Cream 550109Nmc 30uni Use as t/GM ts Needed Patrick Heaton Per Instructi ons Ketoconazole Active Cream 2% 30uni Apply To ts Affected Patrick Heaton Area(S) Once Daily . DO Not Use For More Than 2 Weeks Fluticasone 09/09 Hx Suspension 50mcg/Act 9.900 1 spray J06.9 ml to each Patrick Heaton - nare 09/19 every Delsym 09/09 Hx Suer 30mg/5ML 89ml Take 10 J06.9 ml by Patrick Heaton - mouth 09/14 every hours as needed for cough Phentermine HCL 08/19 Hx Capsules 15mg 60cap take 1 E66.9 s cap twice Patrick Heaton - a day 10/21 #: [id number] Vitamin D3 04/23 Hx Capsules 48306Ggcr 4caps 1 cap by mouth Patrick Heaton - every 07/22 week x weeks Bactrim DS 12/17 Hx Tablets 800-160mg 6tabs 1 tab by irene Heaton M.D. - every Colace 10/16 Hx Capsules 100mg 60cap 1 tab by s mouth Patrick Heaton - twice a 01/14 day needed for constipat ion Hydroxyzine HCL 10/16 Hx Tablets 25mg 90tab 1-2 tabs F41.9 s by mouth Patrick Heaton - three 01/14 times a day as needed anxiety Colchicine 09/17 Hx Tablets 0.6mg 30tab take one R07.2 s tablet by MD Francisco - mouth 10/16 twice a day Ketoconazole 09/13 Hx Cream 2% 60gm apply to B35.4 affected Patrick Heaton - area once 01/14 daily, not use for more than 2 weeks Duloxetine HCL 09/[address] 30mg 90cap take 1 F41.9 Part s tab by Patrick Heaton - mouth 04/22 daily Fluoxetine HCL 06/19 Hx Capsules 40mg 30cap 1 by F41.9 Felecia s irene Heaton M.D. - every day 09/13 Cetirizine HCL 06/19 Hx Tablets 10mg 30tab 1 by Felecia s irene Heaton M.D. - every day 09/13 Hydroxyzine HCL 06/04 Hx Tablets 25mg 90tab 1-2 tabs F41.9 s by irene Heaton M.D. - three 10/16 times day as needed anxiety Fluoxetine HCL 06/04 Hx Capsules 20mg 30cap 1 cap by F41.9 Felecia s irene Heaton M.D. - every day 06/19 morning Bactrim DS 05/07 Hx Tablets 800-160mg 6tabs 1 tab by irene Heaton M.D. - every Biotin 03/28 Hx Capsules 5000mcg One Q Day Patrick Heaton - 10/16 Trazodone HCL 03/28 Hx Tablets 50mg 60tab take 2 F51.01 s tabs by Patrick Heaton - mouth 03/28 at bedtime Lyrica 03/28 Hx Capsules 100mg 270ca 1 cap by M79.7 ps irene Heaton M.D. - three 08/19 times day Reference #: [id number] Amitriptyline HCL 03/28 Hx Tablets 10mg 30tab take 1 M79.7 s pill by Patrick Heaton - mouth 09/13 night at bedtime Azithromycin 10/25 Hx Tablets 250mg 6tabs 2 tabs by Trista Hubert Wong MD - today 10/31 then tab by mouth daily Loratadine 10/25 Hx Tablets 10mg 90tab 1 by Trista Hubert Wong MD - every day 02/12 Vitamin E-400 10/25 Hx Capsules 400Unit 30cap 1 by Trista Hubert Wong MD - every day 04/22 Lyrica 10/02 Hx Capsules 100mg 180ca 1 by Trista /2016 ps mouth MD Judith - three 10/02 times day and increase to 2 caps by mouth 3 times a day within 1 week. ref # [id number] Lyrica 10/02 Hx Capsules 50mg 210ca take sierra Heaton M.D. - capsules 03/28 by mouth every morning and take two capsules by mouth twice a day (maximum daily dose=7) Macrobid 08/27 Hx Capsules 100mg 14cap 1 by Trista /2016 s irene Wong MD - twice a Meloxicam 03/21 Hx Tablets 15mg 30tab 1 by s mouth - every day 03/24 Meloxicam 03/21 Hx Tablets 15mg 90tab Take One s Tablet By Patrick Heaton - Mouth 06/04 Every Macrobid 03/02 Hx Capsules 100mg 20cap 1 by Trista s irene Wong MD - twice a Amitriptyline HCL 12/12 Hx Tablets 25mg 60tab 1/2 tab M79.1 Trista s at MD Judith - bedtime; 10/25 increase once a week up to 2 tabs at bedtime. Pepcid ac Maximum 10/18 Hx Tablets 20mg 60tab 2 by Trista s irene Wong MD - every Tylenol Arthritis 10/17 Hx Tablets ER 650mg 60tab 1 tab by Fawad Pain s mouth [place], - three M.D. 10/25 times day pain Cyclobenzaprine 10/17 Hx Tablets 10mg 60tab 1 tab by Fawad HCL s mouth [place], - three M.D. 03/14 times day as needed spasms Nabumetone 10/13 Hx Tablets 750mg 60tab 1 tab by s mouth [place], - twice a M.D. 03/14 day pain Lyrica 09/15 Hx Capsules 150mg 90cap 1 by Judith s mouth Trista, - three MD 03/14 times day. Ref # [id number] Hydrocortisone 09/15 Hx Cream 2.5% 30uni apply to Reyna, ts affected Marjan, - araseli RIVERA 04/22 twice a day. Percocet 08/10 Hx Tablets 5-325mg 60tab take 1-2 Rick Valdivia s tablets Nikki, - every D.O. 10/13 four to six hours Percocet 05/17 Hx Tablets 5-325mg 40tab take 1 Hany Hernandes s tablet Kathy, - every six M.D., FACS 08/10 hours needed for pain (pt lost last prescript ion) Tramadol HCL 03/14 Hx Tablets 50mg 40tab 1 by Hany Hernandes s mouth Kathy, - three M.D., FACS 08/10 times day Meloxicam 12/28 Hx Tablets 15mg 30tab 1 by Judith s mouth Trista, - every day 03/21 Meloxicam 12/21 Hx Tablets 15mg 30tab 1 by Hany Hernandes s mouth Kathy, - every day Patrick, FACS 10/13 Lansoprazole 03/[address] 30mg 30cap Take One Judith, s Capsule Trista, - By Mouth 10/18 Every Molded Orthotic 02/19 Hx Pes cavus 845.12 Luis A Medial Arch with Wilian, - midfoot 08/05 osteoar ritis Mobic 08/28 Hx Tablets 15mg 30tab take one Hugo, s tablet po MD Hammad - q day. 04/07 Hydrochlorothiazi Hx Tablets 25mg 30tab 1 po qd Unknown de /0000 s - 08/[address] 30mg 60cap 1 po qd Unknown /0000 s - 05/03 Pristiq Hx Tablets ER 100mg po qd Unknown /0000 24HR - 08/05 Simvastatin 00 Hx Tablets 20mg 90tab 1 po qd Unknown /0000 s - 08/05 Diclofenac Sodium Hx Tablets ER 100mg 30tab 1 Tab PO Hany Hernandes ER /0000 24HR s qd Belinda Chavez M.D., FACS 04/07 Orphenadrine 00/00 Hx Tablets ER 100mg Unknown Citrate ER /0000 12HR - 08/10 Meloxicam / Hx Tablets 15mg Unknown / - 11/19 Multi-Day 00/00 Hx Tablets Unknown / - 05/03 Vitamin E /00 Hx Capsules Unknown / - 05/03 Vitamin D 00/00 Hx Capsules Unknown / - 05/03 Ibuprofen 00/00 Hx Tablets 800mg currently Unknown /0000 taking - prn. 04/[address] 30mg qd Unknown / - 08/10 Magnesium Citrate Hx Tablets 100mg Unknown / - 08/[address] 15mg Unknown / - 10/18 Vitamins/Minerals /00 Hx Tablets Unknown /0000 - 10/25 Oxybutynin 00/ Hx Tablets 5mg 60tab Take One Trista Chloride /0000 s Tablet By MD Judith - Mouth 10/25 Twice A /2015 Day Lisinopril Hx Tablets 10mg 90tab Take One Felecia /0000 s Tablet By Patrick Heaton - Mouth 08/01 Every Vitamin D-400 00 Hx Tablets 400Unit take one Unknown /0000 tablets - by mouth 01/14 Vitamin C Hx Capsules 500Unit 1 a day Unknown W/Vitamin /0000 E - 04/22 Levocetirizine Hx Tablets 5mg One Tab Unknown Dihydrochloride /0000 Once A - Day 07/22 Desloratadine Hx Tablets 5mg 1 tab by Unknown /0000 mouth - every day 07/22 as needed /2017 congestio n Dulcolax Hx Tablets DR 5mg 4 tablets Unknown /0000 taken a - 8pm the before the procedure Medications Administered in Office Medication Date Status Form Strength Qnty SIG Indications Ordering Provider Depomedrol Administered Injection Rick DMatthew 40mg/1cc 014 Shea JordanOMatthew Immunizations CPT Code Status Date Vaccine Lot # [id number] Given 04/22/2017 Influenza Virus Vaccine, Quadrivalent, Slit Virus, [id number] Im Use [id number] Given 09/15/2014 Tdap injection 84716 Given 02/27/2012 Hepatitis B Chandan Adoles For Intramuscular Use 74645 Given 08/23/2011 Hepatitis B Chandan Adoles For Intramuscular Use 16861 Given 07/26/2011 Hepatitis B Chandan Adoles For Intramuscular Use [id number] Refused 03/28/2016 Influenza Vaccine (Fluzone) Age 3 And Older Vital Signs Date Vital Result Comment 10/21/2017 BP Systolic Sitting Left Arm 126 mmHg BP Diastolic Sitting Left Arm 84 mmHg Heart Rate 80 /min Respiratory Rate 18 /min Height 70 inches 5'10" Weight 284.12 lb BMI (Body Mass Index) 40.8 kg/m2 BSA (Body Surface Area) 2.42 m2 Horseheads body weight in kilograms 68 09/17/2017 BP Systolic Sitting Left Arm 132 mmHg BP Diastolic Sitting Left Arm 82 mmHg Height 70 inches 5'10" Weight 280.50 lb BMI (Body Mass Index) 40.2 kg/m2 BSA (Body Surface Area) 2.41 m2 [place] body weight in kilograms 68 09/09/2017 BP Systolic Sitting Left Arm 116 mmHg BP Diastolic Sitting Left Arm 76 mmHg Body Temperature 99.2 F Heart Rate 87 /min Weight 281.25 lb O2 % BldC Oximetry 96 % 08/19/2017 BP Systolic 130 mmHg BP Diastolic 84 mmHg Body Temperature 98.5 F Heart Rate 91 /min Respiratory Rate 16 /min Height 70 inches 5'10" Weight 286.12 lb BMI (Body Mass Index) 41.1 kg/m2 BSA (Body Surface Area) 2.43 m2 [place] body weight in kilograms 68 O2 % BldC Oximetry 97 % 08/19/2017 Height 70 inches 5'10" [place] body weight in kilograms 68 07/22/2017 BP Systolic 126 mmHg BP Diastolic 82 mmHg Heart Rate 90 /min Height 70 inches 5'10" Weight 285.00 lb BMI (Body Mass Index) 40.9 kg/m2 BSA (Body Surface Area) 2.43 m2 [place] body weight in kilograms 68 O2 % BldC Oximetry 94 % 04/22/2017 BP Systolic Sitting Right Arm 134 mmHg BP Diastolic Sitting Right Arm 92 mmHg Heart Rate 78 /min Height 70 inches 5'10" Weight 279.50 lb BMI (Body Mass Index) 40.1 kg/m2 BSA (Body Surface Area) 2.41 m2 [place] body weight in kilograms 68 01/14/2017 BP Systolic 142 mmHg BP Diastolic 98 mmHg Heart Rate 79 /min Height 70 inches 5'10" Weight 265.00 lb BMI (Body Mass Index) 38.0 kg/m2 BSA (Body Surface Area) 2.35 m2 [place] body weight in kilograms 12/05/2016 BP Systolic 132 mmHg BP Diastolic 86 mmHg Body Temperature 98.1 F Heart Rate 78 /min Height 70 inches 5'10" Weight 258.38 lb BMI (Body Mass Index) 37.1 kg/m2 BSA (Body Surface Area) 2.33 m2 [place] body weight in kilograms 10/16/2016 BP Systolic Sitting Right Arm 132 mmHg BP Diastolic Sitting Right Arm 82 mmHg Height 70 inches 5'10" Weight 254.12 lb BMI (Body Mass Index) 36.5 kg/m2 BSA (Body Surface Area) 2.31 m2 [place] body weight in kilograms 09/17/2016 BP Systolic Sitting Left Arm 124 mmHg BP Diastolic Sitting Left Arm 88 mmHg Heart Rate 65 /min Respiratory Rate 16 /min Height 70 inches 5'10" Weight 256.00 lb BMI (Body Mass Index) 36.7 kg/m2 BSA (Body Surface Area) 2.32 m2 09/13/2016 BP Systolic Sitting Right Arm 114 mmHg BP Diastolic Sitting Right Arm 76 mmHg Body Temperature 98.0 F Heart Rate 88 /min Respiratory Rate 16 /min Height 70 inches 5'10" Weight 257.25 lb BMI (Body Mass Index) 36.9 kg/m2 BSA (Body Surface Area) 2.32 m2 06/04/2016 BP Systolic 130 mmHg BP Diastolic 78 mmHg Body Temperature 98.4 F Heart Rate 77 /min Respiratory Rate 18 /min Height 70 inches 5'10" Weight 260.00 lb BMI (Body Mass Index) 37.3 kg/m2 BSA (Body Surface Area) 2.33 m2 [place] body weight in kilograms 68 O2 % BldC Oximetry 97 % 03/28/2016 BP Systolic Sitting Left Arm 114 mmHg BP Diastolic Sitting Left Arm 74 mmHg Height 70 inches 5'10" Weight 254.50 lb BMI (Body Mass Index) 36.5 kg/m2 BSA (Body Surface Area) 2.31 m2 [place] body weight in kilograms 68 02/19/2016 BP Systolic Lying Down Resting Right Arm 118 mmHg BP Diastolic Lying Down Resting Right Arm 78 mmHg BP Systolic Sitting Resting Right Arm 118 mmHg BP Diastolic Sitting Resting Right Arm 82 mmHg BP Systolic Standing Resting Right Arm 120 mmHg BP Diastolic Standing Resting Right Arm 78 mmHg 02/19/2016 BP Systolic Sitting Left Arm 118 mmHg BP Diastolic Sitting Left Arm 78 mmHg Heart Rate 76 /min Respiratory Rate 24 /min Height 71 inches 5'11" Weight 248.00 lb BMI (Body Mass Index) 34.6 kg/m2 BSA (Body Surface Area) 2.31 m2 [place] body weight in kilograms 70 02/13/2016 BP Systolic Sitting Right Arm 130 mmHg BP Diastolic Sitting Right Arm 78 mmHg Heart Rate 74 /min Respiratory Rate 16 /min Weight 251.50 lb 10/26/2015 BP Systolic Sitting Right Arm 126 mmHg BP Diastolic Sitting Right Arm 78 mmHg Body Temperature 98.4 F Heart Rate 76 /min Respiratory Rate 20 /min Height 69.25 inches 5'9.25" Weight 249.38 lb BMI (Body Mass Index) 36.6 kg/m2 BSA (Body Surface Area) 2.27 m2 08/17/2015 BP Systolic Sitting Right Arm 130 mmHg BP Diastolic Sitting Right Arm 80 mmHg Heart Rate 84 /min Weight 255.00 lb 03/14/2015 BP Systolic 148 mmHg BP Diastolic 84 mmHg Height 70 inches 5'10" Weight 250.50 lb BMI (Body Mass Index) 35.9 kg/m2 BSA (Body Surface Area) 2.30 m2 12/12/2014 Body Temperature 98.1 F 12/12/2014 BP Systolic 132 mmHg BP Diastolic 74 mmHg Height 69.5 inches 5'9.50" Weight 252.50 lb BMI (Body Mass Index) 36.7 kg/m2 BSA (Body Surface Area) 2.29 m2 11/21/2014 Height 69.5 inches 5'9.50" Weight 252.00 lb BMI (Body Mass Index) 36.7 kg/m2 BSA (Body Surface Area) 2.29 m2 09/15/2014 BP Systolic 130 mmHg BP Diastolic 80 mmHg Height 70 inches 5'10" Weight 273.00 lb 05/04/2014 BP Systolic Sitting Left Arm 106 mmHg BP Diastolic Sitting Left Arm 76 mmHg Height 70 inches 5'10" Weight 275.00 lb BMI (Body Mass Index) 39.5 kg/m2 BSA (Body Surface Area) 2.39 m2 04/19/2014 Height 70 inches 5'10" Weight 274.00 lb BMI (Body Mass Index) 39.3 kg/m2 BSA (Body Surface Area) 2.39 m2 03/29/2014 BP Systolic 118 mmHg BP Diastolic 82 mmHg Height 70 inches 5'10" Weight 268.00 lb 12/28/2013 BP Systolic 112 mmHg BP Diastolic 70 mmHg Height 70 inches 5'10" Weight 260.00 lb 11/29/2013 BP Systolic 112 mmHg BP Diastolic 70 mmHg Height 70 inches 5'10" Weight 261.00 lb 11/23/2013 BP Systolic 120 mmHg BP Diastolic 82 mmHg Heart Rate 76 /min Height 70 inches 5'10" Weight 257.00 lb 11/08/2013 BP Systolic 118 mmHg BP Diastolic 82 mmHg Respiratory Rate 68 /min Height 70 inches 5'10" Weight 257.00 lb 08/20/2013 BP Systolic 120 mmHg BP Diastolic 78 mmHg Heart Rate 80 /min Height 70 inches 5'10" Weight 256.00 lb 08/05/2013 BP Systolic Sitting Left Arm 122 mmHg BP Diastolic Sitting Left Arm 78 mmHg Height 70 inches 5'10" Weight 256.00 lb BMI (Body Mass Index) 36.7 kg/m2 BSA (Body Surface Area) 2.32 m2 02/23/2013 BP Systolic 128 mmHg BP Diastolic 82 mmHg Height 70 inches 5'10" Weight 255.00 lb 12/22/2012 BP Systolic 124 mmHg BP Diastolic 72 mmHg Height 70 inches 5'10" Weight 256.00 lb 11/17/2012 BP Systolic 128 mmHg BP Diastolic 88 mmHg Height 70 inches 5'10" Weight 259.00 lb 08/18/2012 BP Systolic 138 mmHg BP Diastolic 92 mmHg Height 70 inches 5'10" Weight 264.00 lb 07/07/2012 BP Systolic 138 mmHg BP Diastolic 82 mmHg Height 70 inches 5'10" Weight 268.00 lb 05/19/2012 BP Systolic 120 mmHg BP Diastolic 86 mmHg Height 70 inches 5'10" Weight 270.00 lb 04/14/2012 BP Systolic 112 mmHg Large Cuff BP Diastolic 78 mmHg Large Cuff Height 70 inches 5'10" Weight 269.00 lb 03/27/2012 BP Systolic 130 mmHg BP Diastolic 66 mmHg Body Temperature 98.8 F Height 70 inches 5'10" Weight 264.00 lb 03/17/2012 BP Systolic 118 mmHg BP Diastolic 82 mmHg Height 70 inches 5'10" Weight 269.00 lb 07/19/2011 BP Systolic 100 mmHg BP Diastolic 80 mmHg Body Temperature 97.7 F Heart Rate 96 /min Height 70 inches 5'10" Weight 271.00 lb O2 % BldC Oximetry 98 % 03/14/2011 BP Systolic 124 mmHg BP Diastolic 78 mmHg Height 70 inches 5'10" Weight 277.00 lb 02/12/2011 Height 70 inches 5'10" Weight 271.00 lb BMI (Body Mass Index) 38.9 kg/m2 07/31/2010 Height 68.5 inches 5'8.50" Weight 278.00 lb 01/25/2005 Height 70 inches 5'10" Weight 292.00 lb Results Test Date Test Result H/L Range Note Laboratory test finding 09/17/2017 Vitamin D,25-Hydroxy 30.2 ng/mL 30.0- 100.0 1, 2 Iron-Tibc-%Sat 09/17/2017 Serum Iron 39 g/dL Low 50-170 1 Total Iron Binding Capacity 346 g/dL 250-450 1 Transferrin %Saturation 11 % Low 12-57 1 Laboratory test finding 09/17/2017 Ferritin 104 ng/mL 8-252 1 CBS W/Automated Diff 08/19/2017 White Blood Count 6.5 K/uL 3.1-10.7 3 Red Blood Count 4.54 M/uL 3.90-5.40 3 Hemoglobin 13.2 gm/dL 11.6-15.8 3 Hematocrit 39.4 % 36.0-46.1 3 Mean Cell Volume 86.8 fl 80.9-99.0 3 Mean Corpuscular HGB 29.1 pg 25.9-32.7 3 Mean Corpuscular HGB Conc 33.5 g/dL 30.8-34.3 3 Platelet Count 267 K/uL 155-360 3 Red Cell Distri Width SD 44.7 fl 3-47 3 Red Cell Distri Width %CV 14.5 % High 11.7-14.4 3 Mean Platelet Volume 11.0 fL 8.9-12.4 3 Neut% 54.4 % 40.4-72.8 3 Lymph % 38.8 % 20.0-42.0 3 [place] % 5.5 % 4.3-13.2 3 Eo% 1.1 % 0.0-6.6 3 Bas% 0.2 % 0.0-1.1 3 Neut# 3.55 K/uL 1.8-7.0 3 Lymph # 2.53 K/uL 1.0-4.0 3 [place] # 0.36 K/uL 0.3-0.9 3 Eos # 0.07 K/uL 0.0-0.5 3 Baso # 0.01 K/uL 0.0-0.1 3 CCP Igg/Iga Antibodies 08/19/2017 CCP Igg/Iga Antibodies 3 units 0-19 3 , 4 Comprehensive Metabolic 08/19/2017 Glucose 96 mg/dL 74-106 3 Panel BUN 7 mg/dL 7-18 3 Creatinine 0.7 mg/dL 0.6-1.3 3 Glom Filtration Rate, Estimate >60 mL/min >60 3 If >60 mL/min >60 3, 5 BUN/Creat 10.0 ratio 3 Sodium 139 mmol/L 136-145 3 Potassium 3.9 mmol/L 3.5-5.1 3 Chloride 105 mmol/L 98-107 3 Carbon Dioxide 29 mmol/L 21-32 3 Anion Gap 5 mEq/L Low 8-16 3 Calcium 9.3 mg/dL 8.5-10.1 3 Total Protein 7.4 g/dL 6.4-8.2 3 Albumin 3.7 g/dL 3.4-5.0 3 Globulin 3.7 g/dL 1.9-4.3 3 Alb/Glob 1.0 ratio 3 Bilirubin,Total 0.3 mg/dL 0.2-1.0 3 Sgot/Ast 13 U/L Low 15-37 3, 6 SGPT/Alt 21 U/L 12-78 3 Alkaline Phosphatase 76 U/L 45-117 3 Laboratory test finding 08/19/2017 C-Reactive Protein,Cardiac 6.94 mg/L & lt;3.0 3 Sedimentation Rate 13 mm/hr 0-20 3, 7 Rheumatoid Factor Screen < 10.0 IU/mL 0.0-15.0 3 Uric Acid 4.2 mg/dL 2.6-6.0 3 Anti-Nuclear Antibodies Direct Negative AU/mL Negative 3, 8 CBS W/Automated Diff 04/22/2017 White Blood Count 7.8 K/uL 3.1-10.7 9 Red Blood Count 4.57 M/uL 3.90-5.40 9 Hemoglobin 13.2 gm/dL 11.6-15.8 9 Hematocrit 39.7 % 36.0-46.1 9 Mean Cell Volume 86.9 fl 80.9-99.0 9 Mean Corpuscular HGB 28.9 pg 25.9-32.7 9 Mean Corpuscular HGB Conc 33.2 g/dL 30.8-34.3 9 Platelet Count 222 K/uL 150-400 9 Red Cell Distri Width SD 46.1 fl 3-47 9 Red Cell Distri Width %CV 14.8 % High 11.7-14.4 9 Mean Platelet Volume 11.3 fL 8.9-12.4 9 Neut% 56.9 % 40.4-72.8 9 Lymph % 36.1 % 20.0-42.0 9 [place] % 5.5 % 4.3-13.2 9 Eo% 1.2 % 0.0-6.6 9 Bas% 0.3 % 0.0-1.1 9 Neut# 4.45 K/uL 1.8-7.0 9 Lymph # 2.82 K/uL 1.0-4.0 9 [place] # 0.43 K/uL 0.3-0.9 9 Eos # 0.09 K/uL 0.0-0.5 9 Baso # 0.02 K/uL 0.0-0.1 9 Laboratory test finding 04/22/2017 Magnesium 2.3 mg/dL 1.8-2.4 9 Vitamin D,25-Hydroxy 25.7 ng/mL Low 30.0-100.0 9, 10 LDL Cholesterol Profile 01/14/2017 Cholesterol 213 mg/dL High <200 11 , 12 Triglycerides 84 mg/dL <150 11, 13 HDL Cholesterol 63 mg/dL >40 11, 14 LDL-Cholesterol 133 mg/dL < 100 11, 15 Reflex add FT3? Y 11 Reflex add FT4? Y 11 TSH Reflex FT4 And/Or FT3 01/14/2017 Thyroid Stim Hormone 0.89 uIU/mL 0.30-4.20 11 Reflex add FT3? Y 11 Reflex add FT4? Y 11 HPV High Risk 01/14/2017 HPV High Risk Results on file Bacteria Ur Cult 10/30/2016 Bacteria Ur Cult No Growth: Final Report Bilirub Ur Ql 10/30/2016 Bilirub Ur Ql Negative Negative Strip.auto Strip.auto Color Ur 10/30/2016 Color Ur Yellow Yellow Ketones Ur 10/30/2016 Ketones Ur Negative Negative Strip.auto-mCnc Strip.auto-mCnc Leukocyte esterase 10/30/2016 Leukocyte esterase Negative Negative Ur Ql Strip.auto Ur Ql Strip.auto pH Ur Strip.auto 10/30/2016 pH Ur Strip.auto 5.5 Low 6.5-7.5 Urobilinogen Ur 10/30/2016 Urobilinogen Ur 0.2 0.2-1.0 Strip-aCnc Strip-aCnc Urine hemoglobin 10/30/2016 Urine hemoglobin Negative Negative detection by detection by automated test automated test strip strip Urine glucose 10/30/2016 Urine glucose Negative Negative measurement by measurement by automated test automated test strip strip (mass/volume) Urine appearance 10/30/2016 Urine appearance Clear Clear determination determination Specific gravity of 10/30/2016 Specific gravity of 1.025 1.010-1.030 Urine by Automated Urine by Automated test strip test strip Prot Ur 10/30/2016 Prot Ur Negative Negative Strip.auto-mCnc Strip.auto-mCnc Nitrite Ur Ql 10/30/2016 Nitrite Ur Ql Negative Negative Strip.auto Strip.auto Laboratory test 10/22/2016 Urine HCG NEGATIVE Negative 17, 18 finding (Qualitative) Urine Culture 10/15/2016 Urine Culture URETHRAL 19 LUCÍA Quantity > 100,000 CFU/mL 19, 20 Ua RFX Micro & Culture II 10/15/2016 Urine Color YELLOW Yellow 19 Urine Clarity CLEAR Clear 19 Urine Glucose - Dipstick NEGATIVE mg/dL Negative 19 Urine Bilirubin - Dipstick NEGATIVE Negative 19 Urine [place] NEGATIVE mg/dL Negative 19 Urine Specific [place] 1.010 1.010-1.030 19 Urine Blood NEGATIVE Negative 19 Urine PH 7.0 6.5-7.5 19 Urine Protein - Dipstick NEGATIVE mg/dL Negative 19 Urine Urobilinogen - Dipstick 0.2 E.U./dL 0.2-1.0 19 Urine Nitrite - Dipstick NEGATIVE Negative 19 Urine Leuk Esterase NEGATIVE Negative 19 Troponin I 09/10/2016 Troponin I <0.06 0.00 - 0.10 ng/mL CBC 09/10/2016 Hematocrit 42.0 % 36.0 - 47.0 Hemoglobin 13.7 g/dL 12.0 - 16.0 MCH 27.7 pg 27.0 - 32.0 MCHC 32.6 g/dL 32.0 - 36.0 MCV 85.0 fL 80.0 - 95.0 MPV 9.2 fL 7.1 - 10.7 Platelets 210 10*3/uL 150 - 450 RBC 4.93 10*6/uL 4.00 - 5.40 RDW 14.7 % High 10.5 - 14.5 WBC 11.4 10*3/uL High 4.1 - 11.0 BMP 09/10/2016 Anion Gap 9 mmol/L 7 - 16 BUN/Creatinine Ratio 18.3 Ratio 10.0 - 20.0 Calcium 9.7 mg/dL 8.4 - 10.2 Chloride 104 mmol/L 100 - 108 Co2 29 mmol/L 22 - 31 Creatinine 0.71 mg/dL 0.60 - 1.00 GFR MDRD Af Amer >60 >59 ml/min/1.73m2 GFR MDRD Non Af Amer >60 >59 ml/min/1.73m2 Glom Filt Rate, Est See Notes Glucose 78 mg/dL 70 - 99 Potassium 4.5 mmol/L 3.6 - 5.2 Sodium 142 mmol/L 136 - 145 Urea nitrogen 13 mg/dL 7 - 24 Monocytes/leuk NFr Bld 09/09/2016 Monocytes/leuk NFr Bld 5.6 4.3-13.2 Auto Auto Neutrophils # Bld Auto 09/09/2016 Neutrophils # Bld Auto 5.21 1.8-7.0 Neutrophils/leuk NFr Bld 09/09/2016 Neutrophils/leuk NFr 55.2 40.4-72.8 Auto Bld Auto PMV Bld Auto 09/09/2016 PMV Bld Auto 11.6 8.9-12.4 Platelets [#/volume] in 09/09/2016 Platelets [#/volume] in 220 150-400 Blood by Automated count Blood by Automated count Potassium SerPl-sCnc 09/09/2016 Potassium SerPl-sCnc 3.9 3.5-5.1 RBC # Bld Auto 09/09/2016 RBC # Bld Auto 4.56 3.90-5.40 RDW RBC Auto 09/09/2016 RDW RBC Auto 46.8 3-47 RDW RBC Auto-Rto 09/09/2016 RDW RBC Auto-Rto 14.9 High 11.7-14.4 Serum or plasma 09/09/2016 Serum or plasma 59 >40 cholesterol in HDL cholesterol in HDL measurement (ma measurement (mass/volume) Serum or plasma 09/09/2016 Serum or plasma 173 <200 cholesterol measurement cholesterol measurement (mass/volu (mass/volume) Serum or plasma 09/09/2016 Serum or plasma 123 <150 triglyceride measurement triglyceride (mass/vol measurement (mass/volume) Sodium SerPl-sCnc 09/09/2016 Sodium SerPl-sCnc 141 136-145 WBC # Bld Auto 09/09/2016 WBC # Bld Auto 9.3 3.1-10.7 Co2 SerPl-sCnc 09/09/2016 Co2 SerPl-sCnc 27 21-32 Basophils/leuk NFr Bld 09/09/2016 Basophils/leuk NFr Bld 0.2 0.0-1.1 Auto Auto Basophils [#/volume] in 09/09/2016 Basophils [#/volume] in 0.02 0.0-0.1 Blood by Automated count Blood by Automated count BUN/Creat SerPl 09/09/2016 BUN/Creat SerPl 23.3 BUN SerPl-mCnc 09/09/2016 BUN SerPl-mCnc 14 7-18 Anion Gap SerPl-sCnc 09/09/2016 Anion Gap SerPl-sCnc 9 8-16 CBC 09/09/2016 White Blood Count 9.3 K/uL 3.1-10.7 21 Red Blood Count 4.56 M/uL 3.90-5.40 21 Hemoglobin 12.9 gm/dL 11.6-15.8 21 Hematocrit 39.7 % 36.0-46.1 21 Mean Cell Volume 87.1 fl 80.9-99.0 21 Mean Corpuscular HGB 28.3 pg 25.9-32.7 21 Mean Corpuscular HGB Conc 32.5 g/dL 30.8-34.3 21 Platelet Count 220 K/uL 150-400 21 Red Cell Distri Width %CV 14.9 % High 11.7-14.4 21 Mean Platelet Volume 11.6 fL 8.9-12.4 21 Laboratory test finding 09/09/2016 Troponin-I < 0.015 ng/mL 21, 22 LDL Cholesterol Profile 09/09/2016 Cholesterol 173 mg/dL <200 21, 23 Triglycerides 123 mg/dL <150 21, 24 HDL Cholesterol 59 mg/dL >40 21, 25 LDL-Cholesterol 89 mg/dL < 100 21, 26 Basic Metabolic Panel 09/09/2016 Glucose 86 mg/dL 74-106 21 BUN 14 mg/dL 7-18 21 Creatinine 0.6 mg/dL 0.6-1.3 21 Glom Filtration Rate, Estimate >60 mL/min >60 21 If >60 mL/min >60 21, 27 BUN/Creat 23.3 ratio 21 Sodium 141 mmol/L 136-145 21 Potassium 3.9 mmol/L 3.5-5.1 21 Chloride 105 mmol/L 98-107 21 Carbon Dioxide 27 mmol/L 21-32 21 Anion Gap 9 mEq/L 8-16 21 Calcium 8.7 mg/dL 8.5-10.1 21 CBS W/Automated Diff 09/09/2016 White Blood Count 9.4 K/uL 3.1-10.7 21 Red Blood Count 4.63 M/uL 3.90-5.40 21 Hemoglobin 13.0 gm/dL 11.6-15.8 21 Hematocrit 40.3 % 36.0-46.1 21 Mean Cell Volume 87.0 fl 80.9-99.0 21 Mean Corpuscular HGB 28.1 pg 25.9-32.7 21 Mean Corpuscular HGB Conc 32.3 g/dL 30.8-34.3 21 Platelet Count 216 K/uL 150-400 21 Red Cell Distri Width SD 46.8 fl 3-47 21 Red Cell Distri Width %CV 14.9 % High 11.7-14.4 21 Mean Platelet Volume 11.2 fL 8.9-12.4 21 Neut% 55.2 % 40.4-72.8 21 Lymph % 37.7 % 20.0-42.0 21 [place] % 5.6 % 4.3-13.2 21 Eo% 1.3 % 0.0-6.6 21 Bas% 0.2 % 0.0-1.1 21 Neut# 5.21 K/uL 1.8-7.0 21 Lymph # 3.56 K/uL 1.0-4.0 21 [place] # 0.53 K/uL 0.3-0.9 21 Eos # 0.12 K/uL 0.0-0.5 21 Baso # 0.02 K/uL 0.0-0.1 21 Calcium SerPl-mCnc 09/09/2016 Calcium SerPl-mCnc 8.7 8.5-10.1 Chloride SerPl-sCnc 09/09/2016 Chloride SerPl-sCnc 105 98-107 Monocytes # Bld Auto 09/09/2016 Monocytes # Bld Auto 0.53 0.3-0.9 MCV RBC Auto 09/09/2016 MCV RBC Auto 87.1 80.9-99.0 MCHC RBC Auto-mCnc 09/09/2016 MCHC RBC Auto-mCnc 32.5 30.8-34.3 MCH RBC Qn Auto 09/09/2016 MCH RBC Qn Auto 28.3 25.9-32.7 Lymphocytes/leuk NFr 09/09/2016 Lymphocytes/leuk NFr 37.7 20.0-42.0 Bld Auto Bld Auto Lymphocytes [#/volume] 09/09/2016 Lymphocytes [#/volume] 3.56 1.0-4.0 in Blood by Automated in Blood by Automated count count LDLc SerPl Calc-mCnc 09/09/2016 LDLc SerPl Calc-mCnc 89 < 100 Hgb Bld-mCnc 09/09/2016 Hgb Bld-mCnc 12.9 11.6-15.8 Hct VFr Bld Auto 09/09/2016 Hct VFr Bld Auto 39.7 36.0-46.1 Glucose [Mass/volume] 09/09/2016 Glucose [Mass/volume] 86 74-106 in Serum or Plasma in Serum or Plasma Eosinophil/leuk NFr Bld 09/09/2016 Eosinophil/leuk NFr 1.3 0.0-6.6 Auto Bld Auto Creat SerPl-mCnc 09/09/2016 Creat SerPl-mCnc 0.6 0.6-1.3 Eosinophil # Bld Auto 09/09/2016 Eosinophil # Bld Auto 0.12 0.0-0.5 Laboratory test finding 09/08/2016 Troponin-I < 0.015 21, 28 ng/mL Laboratory test finding 09/08/2016 Troponin-I < 0.015 21, 29 ng/mL Glycohemoglobin A1c 09/08/2016 Glycohemoglobin (A1c) 5.9 % 4.2-6.3 21, 30 eAG 123 mg/dL 21 Blood glucose mean value 09/08/2016 Blood glucose mean value 123 measurement estimated fro measurement estimated from glycated hemoglobin (mass/volume) Hgb A1c MFr Bld 09/08/2016 Hgb A1c MFr Bld 5.9 4.2-6.3 Alp SerPl-cCnc 09/07/2016 Alp SerPl-cCnc 61 45-117 Alt SerPl-cCnc 09/07/2016 Alt SerPl-cCnc 23 12-78 Albumin SerPl-mCnc 09/07/2016 Albumin SerPl-mCnc 3.6 3.4-5.0 Albumin/Glob SerPl 09/07/2016 Albumin/Glob SerPl 1.1 Aspartate 09/07/2016 Aspartate 9 Low 15-37 aminotransferase aminotransferase [Enzymatic activity/vol [Enzymatic activity/volume] in Serum or Plasma Bilirub SerPl-mCnc 09/07/2016 Bilirub SerPl-mCnc 0.1 Low 0.2-1.0 Fibrin D-dimer Feu 09/07/2016 Fibrin D-dimer Feu 1.04 measurement in platelet measurement in platelet poor pl poor plasma (mass/volume) Globulin Ser Calc-mCnc 09/07/2016 Globulin Ser Calc-mCnc 3.3 1.9-4.3 Inr 09/07/2016 Inr 0.9 0.9-1.1 Prot SerPl-mCnc 09/07/2016 Prot SerPl-mCnc 6.9 6.4-8.2 Prothrombin time 09/07/2016 Prothrombin time 12.4 12.0-14. 4 Basic Metabolic Panel 03/28/2016 Glucose 78 mg/dL 74-106 31 BUN 10 mg/dL 7-18 31 Creatinine 0.8 mg/dL 0.6-1.3 31 Glom Filtration Rate, Estimate >60 mL/min >60 31 If >60 mL/min >60 31, 32 BUN/Creat 12.5 ratio 31 Sodium 140 mmol/L 136-145 31 Potassium 3.5 mmol/L 3.5-5.1 31 Chloride 105 mmol/L 98-107 31 Carbon Dioxide 30 mmol/L 21-32 31 Anion Gap 5 mEq/L Low 8-16 31 Calcium 8.9 mg/dL 8.5-10.1 31 @[facility] Pat Id: [id number] 31 @[facility] Req #: [id number] 31 Reflex add FT3? Y 31 Reflex add FT4? Y 31 Is Patient Fasting? Unknown 31 TSH Reflex FT4 And/Or FT3 03/28/2016 Thyroid Stim Hormone 0.90 uIU/mL 0.30-4.20 31 @[facility] Pat Id: [id number] 31 @[facility] Req #: [id number] 31 Reflex add FT3? Y 31 Reflex add FT4? Y 31 Is Patient Fasting? Unknown 31 CBS W/Automated Diff 03/28/2016 White Blood Count 7.7 K/uL 3.1-10.7 31 Red Blood Count 4.22 M/uL 3.90-5.40 31 Hemoglobin 12.0 gm/dL 11.6-15.8 31 Hematocrit 36.8 % 36.0-46.1 31 Mean Cell Volume 87.2 fl 80.9-99.0 31 Mean Corpuscular HGB 28.4 pg 25.9-32.7 31 Mean Corpuscular HGB Conc 32.6 g/dL 30.8-34.3 31 Platelet Count 248 K/uL 155-360 31 Red Cell Distri Width SD 44.5 fl 3-47 31 Red Cell Distri Width %CV 14.3 % 11.7-14.4 31 Mean Platelet Volume 11.9 fL 8.9-12.4 31 Neut% 49.3 % 40.4-72.8 31 Lymph % 44.0 % 17.0-46.1 31 [place] % 5.2 % 4.3-13.2 31 Eo% 1.2 % 0.0-6.6 31 Bas% 0.3 % 0.0-1.1 31 Neut# 3.79 K/uL 1.8-7.0 31 Lymph # 3.38 K/uL 1.8-7.0 31 [place] # 0.40 K/uL 0.3-0.9 31 Eos # 0.09 K/uL 0.0-0.5 31 Baso # 0.02 K/uL 0.0-0.1 31 @[facility] Pat Id: [id number] 31 @[facility] Req #: [id number] 31 LDL Cholesterol Profile 03/28/2016 Cholesterol 186 mg/dL <200 31, 33 Triglycerides 132 mg/dL <150 31, 34 HDL Cholesterol 49 mg/dL >40 31, 35 LDL-Cholesterol 111 mg/dL < 100 31, 36 @[facility] Id: [id number] 31 @[facility] Req #: [id number] 31 Reflex add FT3? Y 31 Reflex add FT4? Y 31 Is Patient Fasting? Unknown 31 Laboratory test finding 02/22/2016 TSH Reflex FT4 And/Or FT3 <pending&gt ; Laboratory test finding 03/14/2015 Antinuclear Antibodies, Negative . 37 Ifa C-Reactive Protein,Quant 13.4 mg/L <3.0 FSH 5.0 mIU/mL 38 Basic Metabolic Panel 03/14/2015 Glucose 91 mg/dL 74-106 BUN 13 mg/dL 7-18 Creatinine 1.0 mg/dL 0.6-1.3 Glom Filtration Rate, Estimate >60 mL/min >60 If >60 mL/min >60 39 BUN/Creat 13.0 ratio Sodium 140 mmol/L 136-145 Potassium 4.2 mmol/L 3.5-5.1 Chloride 104 mmol/L 98-107 Carbon Dioxide 28 mmol/L 21-32 Anion Gap 8 mEq/L 8-16 Calcium 9.0 mg/dL 8.5-10.1 Laboratory test finding 03/14/2015 Thyroid Stim Hormone 1.20 uIU/mL 0.36- 3.74 CBS W/Automated Diff 03/14/2015 White Blood Count 8.4 K/uL 3.1-10.7 Red Blood Count 4.29 M/uL 3.90-5.40 Hemoglobin 12.3 gm/dL 11.6-15.8 Hematocrit 38.2 % 36.0-46.1 Mean Cell Volume 89.0 fl 80.9-99.0 Mean Corpuscular HGB 28.7 pg 25.9-32.7 Mean Corpuscular HGB Conc 32.2 g/dL 30.8-34.3 Platelet Count 219 K/uL 155-360 Red Cell Distri Width SD 43.9 fl 3-47 Red Cell Distri Width %CV 13.7 % 11.7-14.4 Mean Platelet Volume 11.8 fL 8.9-12.4 Neut% 52.4 % 40.4-72.8 Lymph % 41.2 % 17.0-46.1 [place] % 5.2 % 4.3-13.2 Eo% 0.8 % 0.0-6.6 Bas% 0.4 % 0.0-1.1 Neut# 4.42 K/uL 1.0-7.0 Lymph # 3.48 K/uL 1.8-7.0 [place] # 0.44 K/uL 0.3-0.9 Eos # 0.07 K/uL 0.0-0.5 Baso # 0.03 K/uL 0.0-0.1 Laboratory test finding 12/01/2013 CK 84 U/L 26-190 Troponin-I < 0.02 ng/mL 0.00-0.50 40 Laboratory test finding 11/24/2013 Troponin I 0.00 ng/mL <0.03 41 Laboratory test finding 11/24/2013 Activated Partial 32.7 s 24.0-36.1 Thrombo Time B Type Natriuretic Peptide 16 pg/mL 42 Creatine Kinase 124 U/L 10-223 TSH (Thyroid Stimulating Horm) 0.73 IU/mL 0.34-5.60 Troponin I 0.00 ng/mL <0.03 43 CBC Auto Diff 11/24/2013 Abs Basophils 0 10^3/uL 0-0.2 Abs Eosinophils 0.1 10^3/uL 0-0.6 Abs Lymphocytes 3.2 10^3/uL 1.0-4.8 Abs Monocytes 0.5 10^3/uL 0-0.8 Abs Neutrophils 5.5 10^3/uL 1.5-7.7 Abs Nucleated RBC 0 10^3/uL Basophil % 0.3 % 0-2 Eosinophil % 0.7 % 0-6 Granulocyte % 59.4 % 38-83 Hematocrit 40 % 35-47 Hemoglobin 13.4 g/dL 12.0-16.0 Lymphocyte % 34.5 % 25-47 Mean Corpuscular HGB Conc 34 g/dL 31-36 Mean Corpuscular Hemoglobin 29 pg 27-31 Mean Corpuscular Volume 86 fL 80-97 Mean Platelet Volume 9 um3 7.4-10.4 Monocyte % 5.1 % 1-9 Nucleated Red Blood Cells % 0 Platelet Count 221 10^3/uL 150-450 Red Blood Count 4.66 10^6/uL 4.0-5.4 Red Cell Distribution Width 14 % 10.5-15 White Blood Count 9.3 10^3/uL 4.8-10.8 CKMB 11/24/2013 CKMB ng/mL 2.6 ng/mL 0.6-6.3 Comp Metabolic Panel 11/24/2013 Albumin 4.6 g/dL 3.2-5.2 Albumin/Globulin Ratio 1.6 1-3 Alkaline Phosphatase 56 U/L 34-104 Alt 20 U/L 7-52 Anion Gap 6 mmol/L 2-11 Ast 15 U/L 13-39 BUN/Creatinine Ratio 15.2 8-20 Blood Urea Nitrogen 12 mg/dL 6-24 Calcium 9.4 mg/dL 8.6-10.3 Chloride 104 mmol/L 101-111 Co2 Carbon Dioxide 29 mmol/L 22-32 Creatinine 0.79 mg/dL 0.51-0.95 Egfr 102.2 >60 44 Egfr Non- 79.4 >60 Globulin 2.9 g/dL 2-4 Glucose 90 mg/dL 70-100 Potassium 3.7 mmol/L 3.7-5.6 Sodium 139 mmol/L 133-145 Total Bilirubin 0.30 mg/dL 0.2-1.0 Total Protein 7.5 g/dL 6.4-8.9 Inr/Protime 11/24/2013 Inr 0.97 0.85-1.06 Laboratory test finding 11/24/2013 Activated Partial Thrombo 32.3 s 24.0- 36.1 Time Erythrocyte Sed Rate 19 mm/Hr High 0-14 CBC/Manual Differential 11/24/2013 Abs Basophils 0 10^3/uL 0-0.2 Abs Eosinophils 0.1 10^3/uL 0-0.6 Abs Lymphocytes 3.2 10^3/uL 1.0-4.8 Abs Monocytes 0.4 10^3/uL 0-0.8 Abs Neutrophils 5.4 10^3/uL 1.5-7.7 Abs Nucleated RBC 0 10^3/uL Eosinophils % 1 % 0-6 Hematocrit 39 % 35-47 Hemoglobin 13.0 g/dL 12.0-16.0 Lymphocytes % 34 % 25-47 Mean Corpuscular HGB Conc 33 g/dL 31-36 Mean Corpuscular Hemoglobin 28 pg 27-31 Mean Corpuscular Volume 85 fL 80-97 Mean Platelet Volume 9 um3 7.4-10.4 Monocytes % 7 % 0-13 Neutrophil % 58 % 38-83 Platelet Count 224 10^3/uL 150-450 RBC Morphology Normal Normal Red Blood Count 4.59 10^6/uL 4.0-5.4 Red Cell Distribution Width 14 % 10.5-15 White Blood Count 9.2 10^3/uL 4.8-10.8 Protime 11/24/2013 Inr 0.92 0.85-1.06 Vitamin D,25-Hydroxy 11/24/2013 25-Hydroxy Vitamin D Total 39 ng/mL 45 25-Hydroxy Vitamin D2 <4.0 ng/mL 25-Hydroxy Vitamin D3 39 ng/mL Laboratory test finding 11/08/2013 Cytology Pap See Note 46 Affirm 11/08/2013 Rose Positive 47 Gardnerella Negative Trichomonas Negative Laboratory test finding 08/20/2013 Thyroid Stim Hormone 1.29 uIU/mL 0.49- 4.67 Vitamin D,1,25 Dihydroxy 94.4 pg/mL High 10.0-75.0 48 CBC W/Automated Diff 08/20/2013 Bas% 0.1 % 0.0-1.1 Baso # 0.01 K/uL 0.0-0.1 Eo% 0.6 % 0.0-6.6 Eos # 0.04 K/uL 0.0-0.5 Hematocrit 39.1 % 36.0-46.1 Hemoglobin 13.4 gm/dL 11.6-15.8 Lymph # 2.51 K/uL 0.8-3.4 Lymph % 35.1 % 17.0-46.1 Mean Cell Volume 85.9 fl 80.9-99.0 Mean Corpuscular HGB 29.5 pg 25.9-32.7 Mean Corpuscular HGB Conc 34.3 g/dL 30.8-34.3 Mean Platelet Volume 11.9 fL 8.9-12.4 [place] # 0.38 K/uL 0.3-0.9 [place] % 5.3 % 4.3-13.2 Neut# 4.21 K/uL 1.0-7.0 Neut% 58.9 % 40.4-72.8 Platelet Count 235 K/uL 155-360 Red Blood Count 4.55 M/uL 3.90-5.40 Red Cell Distri Width %CV 14.5 % High 11.7-14.4 Red Cell Distri Width SD 44.6 fl 3-47 White Blood Count 7.2 K/uL 3.1-10.7 Comprehensive Metabolic Panel 08/20/2013 Alb/Glob 1.0 ratio Albumin 4.0 g/dL 3.5-5.0 Alkaline Phosphatase 63 U/L 50-136 Anion Gap 11 mEq/L 8-16 BUN 11 mg/dL 5-23 BUN/Creat 18.3 ratio Bilirubin,Total 0.3 mg/dL 0.2-1.2 Calcium 9.5 mg/dL 8.5-10.1 Carbon Dioxide 26 mEq/L 18-29 Chloride 104 mmol/L 98-107 Creatinine 0.6 mg/dL 0.5-1.4 Globulin 4.0 g/dL 1.9-4.3 Glom Filtration Rate, Estimate >60 mL/min >60 Glucose 82 mg/dL 76-115 If >60 mL/min >60 49 Potassium 3.9 mmol/L 3.5-5.1 SGPT/Alt 27 U/L Low 30-65 Sgot/Ast 14 U/L Low 16-40 Sodium 137 mmol/L 136-145 Total Protein 8.0 g/dL 6.3-8.0 LDL Cholesterol Profile 08/20/2013 Cholesterol 227 mg/dL High 120-200 HDL Cholesterol 47 mg/dL 29-83 LDL-Cholesterol 164 mg/dL 62-185 Triglycerides 80 mg/dL 16-231 Glycohemoglobin A1c 08/20/2013 Glycohemoglobin (A1c) 5.5 % 4.8-6.0 50 eAG 111 mg/dL Urine Culture & 07/19/2011 M <See 51 Sensitivi Note> Liver Function Panel 03/14/2011 Albumin 4.2 GM/DL 3.6-5.4 Albumin/Globulin Ratio 1.6 1-3 Alkaline Phosphatase 59 U/L 30-110 Alt (SGPT) 26 U/L 14-54 Ast (Sgot) 18 U/L 12-42 Bilirubin Direct 0.1 mg/dL 0.1-0.5 Bilirubin Total 0.5 mg/dL 0.4-1.5 52 Globulin 2.7 GM/DL 2-4 Indirect Bilirubin 0.4 mg/dL 0.3-1.0 53 Total Protein 6.9 GM/DL 6.2-8.1 Lipid Profile (Trig/Chol/HDL) 03/14/2011 Cholesterol 201 mg/dL High Less Than 200 54 Cholesterol/HDL Ratio 3.65 AVERAGE 1-4.44 High Density Lipoprotein 55 mg/dL 40-60 55 Low Density Lipoprotein 117 mg/dL High Less Than 100 56 Triglyceride 144 mg/dL 40-200 1 E55.9 G25.81 2 Vitamin D deficiency has been defined by the [place] [employer] and an Endocrine Society practice guideline as a level of serum 25-OH vitamin D less than 20 ng/mL (1,2). The Endocrine Society went on to further define vitamin D insufficiency as a level between 21 and 29 ng/mL (2). 1. IOM ([place] [employer]). 2010. Dietary reference intakes for calcium and D. [place]: The National Academies Press. 2. Brissa MF, Ashley BARKER, Coy HARRIS, et al. Evaluation, treatment, and prevention of vitamin D deficiency: an Endocrine Society clinical practice guideline. JCEM. 2010; 96(7):1911-30. Performed at: [address] [id number] Web Developer: Luz Pedro MD, Phone: [phone] M25.50 4 Negative <20 Weak positive 20 - 39 Moderate positive 40 - 59 Strong positive >59 5 Note: Persistent reduction for 3 months or more in an eGFR <60 mL/min/1.73 m2 defines CKD. Patients with eGFR values >/=60 mL/min/1.73 m2 may also have CKD if evidence of persistent proteinuria is present. The original MDRD equation for estimated GFR is not valid for patients less than 18 years of age. Additional information may be found at www.kdoqi.org. 6 Values below the stated reference ranges of AST and ALT can be seen in normal populations. Clinical correlation is suggested. 7 Method: Sediplast Modified Westergren 8 Performed at: - [address] [id number] Web Developer: Edwin Mchugh MD, Phone: [phone] Performed at: [facility] [address] [id number] Web Developer: Luz Pedro MD, Phone: [phone] K21.9 10 Vitamin D deficiency has been defined by the [place] [employer] and an Endocrine Society practice guideline as a level of serum 25-OH vitamin D less than 20 ng/mL (1,2). The Endocrine Society went on to further define vitamin D insufficiency as a level between 21 and 29 ng/mL (2). 1. IOM ([place] [employer]). 2010. Dietary reference intakes for calcium and D. [place]: The National Academies Press. 2. Brissa MF, Ashley BARKER, Coy HARRIS, et al. Evaluation, treatment, and prevention of vitamin D deficiency: an Endocrine Society clinical practice guideline. JCEM. 2010; 96(7):1911-30. Performed at: RN - [facility] [address] [id number] Web Developer: Luz Pedro MD, Phone: [phone] Z12.4 12 Reference Guidelines*: Desirable: ........... < 200 mg/dL Borderline High: ..... 200-239 mg/dL High: ................ >=240 mg/dL * The National Cholesterol Education Program (NCEP) 13 Reference Guidelines*: Normal: ............. < 150 mg/dL Borderline High: .... 150-199 mg/dL High: ............... 200-499 mg/dL Very High: .......... > 500 mg/dL * Source: National Cholesterol Education Program (NCEP) 14 Reference Guidelines*: Low HDL: ..... < 40 mg/dL Normal: ..... 40-60 mg/dL Desirable: ... > 60 mg/dL *The National Cholesterol Education Program(NCEP) 15 Reference Guidelines*: Optimal:........... <100 mg/dL Near Optimal....... 100-129 mg/dL Borderline High.... 130-159 mg/dL High............... 160-189 mg/dL Very High.......... >=190 mg/dL * Source: National Cholesterol Education Program (NCEP) 16 Hard copy of report to be sent by mail Report may be viewed in Clinical Review, or in PCI under Medical Record Forms 17 CONSULT [id number] 18 FIRST MORNING SPECIMENS GENERALLY CONTAIN THE HIGHEST CONCENTRATION OF HCG AND ARE RECOMMENDED FOR EARLY DETECTION OF . Method: Quidel QuickVue One-Step Immunoassay 19 N39.46 20 > 100,000 CFU/mL SPECIMEN IS A MIX OF GRAM POSITIVE ORGANISMS CONSISTENT WITH SKIN VAGINAL CONTAMINATION. SUGGEST REPEAT SPECIMEN IF CLINICALLY INDICATED. 21 CHEST PAIN 22 0.0 - 0.045 ng/mL: Normal 0.046 - 0.5 ng/mL: Suggestive 0.6 - 1.5 ng/mL: Consistent 23 Reference Guidelines*: Desirable: ........... < 200 mg/dL Borderline High: ..... 200-239 mg/dL High: ................ >=240 mg/dL * The National Cholesterol Education Program (NCEP) 24 Reference Guidelines*: Normal: ............. < 150 mg/dL Borderline High: .... 150-199 mg/dL High: ............... 200-499 mg/dL Very High: .......... > 500 mg/dL * Source: National Cholesterol Education Program (NCEP) 25 Reference Guidelines*: Low HDL: ..... < 40 mg/dL Normal: ..... 40-60 mg/dL Desirable: ... > 60 mg/dL *The National Cholesterol Education Program(NCEP) 26 Reference Guidelines*: Optimal:........... <100 mg/dL Near Optimal....... 100-129 mg/dL Borderline High.... 130-159 mg/dL High............... 160-189 mg/dL Very High.......... >=190 mg/dL * Source: National Cholesterol Education Program (NCEP) 27 Note: Persistent reduction for 3 months or more in an eGFR <60 mL/min/1.73 m2 defines CKD. Patients with eGFR values >/=60 mL/min/1.73 m2 may also have CKD if evidence of persistent proteinuria is present. The original MDRD equation for estimated GFR is not valid for patients less than 18 years of age. Additional information may be found at www.kdoqi.org. 28 0.0 - 0.045 ng/mL: Normal 0.046 - 0.5 ng/mL: Suggestive 0.6 - 1.5 ng/mL: Consistent 29 0.0 - 0.045 ng/mL: Normal 0.046 - 0.5 ng/mL: Suggestive 0.6 - 1.5 ng/mL: Consistent 30 Elevated levels of HbA1c suggest the need for more aggressive treatment of glycemia. The [place] [employer] recommends that a primary goal of therapy should be a HbA1c of <7% and that physicians should re-evaluate the treatment regimen in patients with HbA1c values consistently >8%. 31 I10 R42 32 Note: Persistent reduction for 3 months or more in an eGFR <60 mL/min/1.73 m2 defines CKD. Patients with eGFR values >/=60 mL/min/1.73 m2 may also have CKD if evidence of persistent proteinuria is present. The original MDRD equation for estimated GFR is not valid for patients less than 18 years of age. Additional information may be found at www.kdoqi.org. 33 Reference Guidelines*: Desirable: ........... < 200 mg/dL Borderline High: ..... 200-239 mg/dL High: ................ >=240 mg/dL * The National Cholesterol Education Program (NCEP) 34 Reference Guidelines*: Normal: ............. < 150 mg/dL Borderline High: .... 150-199 mg/dL High: ............... 200-499 mg/dL Very High: .......... > 500 mg/dL * Source: National Cholesterol Education Program (NCEP) 35 Reference Guidelines*: Low HDL: ..... < 40 mg/dL Normal: ..... 40-60 mg/dL Desirable: ... > 60 mg/dL *The National Cholesterol Education Program(NCEP) 36 Reference Guidelines*: Optimal:........... <100 mg/dL Near Optimal....... 100-129 mg/dL Borderline High.... 130-159 mg/dL High............... 160-189 mg/dL Very High.......... >=190 mg/dL * Source: National Cholesterol Education Program (NCEP) 37 Negative <1:80 Borderline 1:80 Positive >1:80 Performed at: RN - [facility] [address] [id number] Web Developer: Luz Pedro MD, Phone: [phone] NORMALLY MENSTRUATING FEMALES: Follicular Phase:............... 2.3-12.6 mIU/mL Mid-Cycle Peak:................. 5.2-17.5 mIU/mL Luteal Phase:................... 1.7-9.5 mIU/mL POSTMENOPAUSAL FEMALES: On menopausal hormone therapy (MHT)... 5.9-72.8 mIU/mL Not on MHT ........................... 0.7-10.8 mIU/mL 39 Note: Persistent reduction for 3 months or more in an eGFR <60 mL/min/1.73 m2 defines CKD. Patients with eGFR values >/=60 mL/min/1.73 m2 may also have CKD if evidence of persistent proteinuria is present. The original MDRD equation for estimated GFR is not valid for patients less than 18 years of age. Additional information may be found at www.kdoqi.org. 40 0 - 0.5 ng/mL: No evidence of myocardial injury 0.6 - 1.4 ng/mL: Mild elevation, suggesting possible myocardial injury > 1.4 ng/mL: Consistent with myocardial injury 41 Reference Range and Interpretation: TnI (ng/mL) Interpretation Less Than 0.03 ng/mL Not supportive of diagnosis of [place] 0.03 - 0.50 ng/mL Indeterminate: suggest serial studies if clinically indicated. Greater than 0.5 ng/mL Consistent with diagnosis of [place] 42 >100 to <200 pg/mL: likely compensated congestive heart failure (CHF ) 200 to 400 pg/mL: likely moderate CHF >400 pg/mL: likely moderate to severe CHF [place] [facility] 43 Reference Range and Interpretation: TnI (ng/mL) Interpretation Less Than 0.03 ng/mL Not supportive of diagnosis of [place] 0.03 - 0.50 ng/mL Indeterminate: suggest serial studies if clinically indicated. Greater than 0.5 ng/mL Consistent with diagnosis of [place] 44 Because ethnic data is not always readily available, this report includes an eGFR for both -Americans and non- Americans. The National Kidney Disease Education Program (NKDEP) does not endorse the use of the MDRD equation for patients that are not between the ages of 18 and 70, are , have extremes of body size, muscle mass, or nutritional status, or are non- or non-. According to the National Kidney Foundation, irrespective of diagnosis, the stage of the disease is based on the level of kidney function: Stage Description GFR(mL/min/1.73 m(2)) 1 Kidney damage with normal or decreased GFR 90 2 Kidney damage with mild decrease in GFR 60- 89 3 Moderate decrease in GFR 30-59 4 Severe decrease in GFR 15-29 5 Kidney failure <15 (or dialysis) 45 -- REFERENCE VALUE -- 25-HYDROXY D TOTAL (D2+D3) Optimum levels in the healthy population are 20-50, patients with bone disease may benefit from higher levels within this range. Test Performed by: [address] [address] Dry Press Operator Helper: Yovany Baron III, M.D. [address] [facility] [address] [place] [address], [address] [place] [address] CYTOLOGY REPORT Name: Kerry Calhoun Accession # : [id number] : 1970 (Age: 43) Sex: F Location: [facility]. Rec. # Date Collected: 11/08/2013 Billing #: [id number] Date Received: 2013 Physician(s): MARJAN REYNA MD Source of Specimen: ENDOCERVICAL/ ECTOCERVICAL THIN PREP Clinical Information: Date of Last Menstrual Period: None Provided Menstrual History: Irregular Post menopausal: 04/22/00 Interpretation: NEGATIVE FOR INTRAEPITHELIAL LESION OR MALIGNANCY. FUNGAL ORGANISMS MORPHOLOGICALLY CONSISTENT WITH ROSE SP. Specimen Adequacy: SATISFACTORY FOR EVALUATION. Additional Findings: ENDOCERVICAL/TRANSFORMATION ZONE PRESENT. kf Electronic Signature BETTINA Palma (ASCP) Reported: 11/10/2013 HubHub ICD-9 Code(s) V72.31 A; 112.1 47 [facility] [address] [place] [address], [address] [place] [address] AFFIRM VAGINOSIS / VAGINITIS REPORT Name: Kerry Calhoun : 1970 (Age: 43) Sex: F Location: [facility]. Rec. # Date Collected: 11/08/2013 Billing #: [id number] Date Received: 11/08/2013 Physician(s): MARJAN REYNA MD Source of Specimen: Vaginal Results: Rose species DNA Probe POSITIVE Gardnerella vaginalis DNA Probe NEGATIVE Trichomonas vaginalis DNA Probe NEGATIVE Reported: 11/09/[address] [facility] Debbie Evans [place] HubHub ICD-9 Codes: 616.10 48 Performed at: [address] [id number] Web Developer: Edwin Mchugh MD, Phone: [phone] Note: Persistent reduction for 3 months or more in an eGFR <60 mL/min/ 1.73 m2 defines CKD. Patients with eGFR values >/=60 mL/min/1.73 m2 may also have CKD if evidence of persistent proteinuria is present. The original MDRD equation for estimated GFR is not valid for patients less than 18 years of age. Additional information may be found at www.kdoqi.org. 50 A1c value between 5.7% and 6.4% is considered at increased risk for diabetes. A1c value greater than 6.5 % is considered essentially diagnostic for Type II diabetes. Current guidelines recommend a treatment goal of <7% for diabetic patients. This method will measure glycosylated hemoglobin variants, HbS, HbG , HbH, HbWayne, HbC, HbE, etc. Other hemoglobin- opathies may give incorrect results with this test. 51 ------- RUN DATE: 07/21/11 [facility] NMI LIVE PAGE 1 RUN TIME: 907 Specimen Inquiry RUN USER: INTERFACE ----- Name: KERRY CALHOUN Status: REG REF Re Age/Sex: 41/F Unit#: [id number] Location: [facility] : 70 ----- SPEC #: [id number] TIO: 07/19/11-1040 STATUS: COMP REQ #: [id number] RECD: 07/19/[address]: Felicia Hernandez NP SOURCE: URINE ENTR: 07/19/111453 ISIDRO DR: DEB: ORDERED: URINE C S QUERIES: MEDENT REQUISITION # [id number] SPECIMEN DESCRIPTION: URINE, RANDOM ACT WKST: UR 07/21/11 #1 ----- Procedure Result Verified Site ----- > URINE CULTURE SENSITIVI Final 07/21/11-907 ML SPECIMEN CONTAINS NORMAL URETHRAL OR PERINEAL LUCÍA AND DOES NOT SUGGEST URINARY TRACT INFECTION ----- ML - [facility] State Permit #[id number] [address] [place] [id number] ----- DEPARTMENT OF PATHOLOGY, [address] [place] [address], [place] [address] [facility] Permit #[id number] Dusty Lloyd M.D. Director Denise Cheema M.D. Commercial Driver'S License Driver ----- 52 A metabolite of Naproxen, O-desmethylnaproxen, has been shown to interfere with the [place] method for measuring total bilirubin. Samples from patients who have taken Naproxen have shown spurious elevation in total bilirubin levels. 53 Please note updated reference range, effective 01/11/10 54 CHOLESTEROL INTERPRETATION: Desirable: Less than 200 MG/DL Borderline-High Risk: 200-239 MG/DL High-Risk: 240 MG/DL and over 55 HDL INTERPRETATION: Undesirable: High Risk: Less than 40 MG/DL Desirable: Low Risk: Greater than 60 MG/DL 56 LDL INTERPRETATION: Low Risk Optimal Level: LDL Less than 100 MG/DL Near or Above Optimal: LDL 100-129 MG/DL Borderline High Risk: LDL 130-159 MG/DL High Risk : LDL 160-189 MG/DL Very High Risk: LDL Greater than 189 MG/DL Procedures Date CPT Code Description Status Comment 09/17/2016 55127 EKG-Tracing And Report Completed 09/09/2016 81189 Stress Test Interpre And Report Completed Only 09/09/2016 62228 Stress Test Physician Super Completed Only 09/09/2016 92632 Myocardial Imaging Tomographic Completed Multiple Study At Rest Or Stress 03/07/[address] Zaidi 11/24/2015 Mammogram Completed Birads 2, wants Q2 year screening 11/25/2014 21012 Neuroplasty median nerve at Completed carpal tunnel 11/25/2014 85005 Neuroplasty &/or Completed transposition cranial nerve/ulnar nerve at elbow 11/25/2014 33189 Anesthesia, Elbow Area Surgery Completed (Nerve,Muscle,Tendon,Fascia,Bur sa) 10/31/2014 32763 Injection, Therapeutic Carpal Completed Tunnel 10/27/2014 50198 Nerve Conduction 3-4 Studies Completed 10/27/2014 09619 Needle Electromyography Completed Complete, Five Or More Muscles Studied 10/13/2014 41590 Radiology, C-Spine Complete Completed 05/06/2014 09735 Ultrasound Guide For Needle Completed Biopsy 05/06/2014 34945 Injection For Nerve Block, Completed Brachial Plexus Single 05/06/2014 16173 Biceps Tenodesis Completed 05/06/2014 58373 Arthroscopy with rotator cuff Completed repair 05/06/2014 65615 Decompression subacromial space Completed w/partial acromioplasty w/wo corc 05/06/2014 42676 Anesthesia, Shoulder Surgery Completed Open/Surg Arthroscopic Procedures 04/19/2014 56779 Nerve Conduction 7-8 Studies Completed 04/19/2014 82822 Needle Electromyography Completed Complete, Five Or More Muscles Studied 12/21/2013 04680 Asp./Injection major joint Completed 08/05/2013 57936 Radiology, Shoulder: Two Views Completed (Sso) 07/19/2011 30591 Pulse Oximetry Completed 08/14/2010 89061 FX Metacarpal closed single w/o Completed manipulation 10/05/2009 47027 EKG-Tracing And Report Completed Encounters Type Date Location Provider CPT E/M Dx Office Visit 09/17/2017 10:30a Family Medicine Felecia Heaton M.D. 27813 M79.7 E66.9 E55.9 G25.81 Office Visit 09/09/2017 10:15a Family Medicine KUNAL Castañeda 18616 J06.9 Office Visit 08/19/2017 9:45a Family Medicine Felecia Heaton M.D. 09879 F33.1 E66.9 M25.50 Z68.41 Office Visit 07/22/2017 9:30a Family Medicine Felecia Heaton M.D. 41280 F33.1 M79.7 I10 K21.9 Office Visit 04/22/2017 9:30a Family Medicine Felecia Heaton M.D. 23114 I10 R19.7 K21.9 F33.1 M79.7 Z23 Office Visit 01/14/2017 9:30a Family Medicine Felecia Heaton M.D. 03519 Z00.00 Z12.31 Z12.4 I10 Office Visit 12/05/2016 8:30a Family Medicine Felecia Heaton M.D. 68686 L50.1 B34.9 H69.90 Office Visit 10/16/2016 3:15p Family Medicine Felecia Heaton M.D. 34784 Z01.818 N36.8 F41.9 Office Visit 09/17/2016 9:00a [place] [address] R07.2 Z01.810 Office Visit 09/13/2016 1:30p Family Medicine Felecia Heaton M.D. 80860 R07.9 F41.9 B35.4 Office Visit 09/09/2016 2:41p Cardiology Office Jayden Dumont 18388 R07.9 MAndre, [facility] Office Visit 06/04/2016 10:30a Family Medicine Felecia Heaton M.D. 82042 F41.9 Office Visit 03/28/2016 3:15p Family Medicine Felecia Heaton M.D. 25092 R42 M79.7 I10 F51.01 Office Visit 02/19/2016 1:45p Family Medicine Sulema Conti [facility] 10330 R07.1 R42 Office Visit 02/13/2016 8:45a Family Medicine Felecia Heaton M.D. 36257 M79.7 I10 E78.5 F51.01 Office Visit 10/26/2015 11:00a [place] [address] Z00.00 Z00.00 N39.46 N39.46 K58.9 K58.9 Office Visit 08/17/2015 11:30a [place] [address] G25.81 K59.00 Office Visit 03/14/2015 3:15p [place] [address] R53.83 M25.569 N94.1 Office Visit 12/12/2014 1:00p [place] [address] 524.64 530.81 729.1 Office Visit 10/31/2014 9:30a Orthopaedic Office Fawad Stevens M.D. 86849 354.0 354.0 Office Visit 10/13/2014 9:00a Orthopaedic Office Fawad Stevens M.D. 28560 354.0 723.1 Office Visit 09/07/2014 2:15p Orthopaedic Office Rick Jordan D.O. 89850 V54.89 718.41 Office Visit 08/10/2014 1:30p Orthopaedic Office Rick Jordan D.O. 50726 V54.89 Office Visit 04/25/2014 2:00p Orthopaedic Office Rick Jordan D.O. 84623 726.13 726.10 354.0 Office Visit 03/14/2014 2:45p Orthopaedic Office Rick Jordan D.O. 30583 726.13 726.10 722.91 Office Visit 02/08/2014 3:00p Orthopaedic Office Rick Jordan D.O. 00422 722.91 726.13 726.10 Office Visit 12/21/2013 3:15p Orthopaedic Office Rick Jordan D.O. 61857 726.13 726.13 726.10 726.10 Office Visit 12/10/2013 10:45a Orthopaedic Office Hany Chavez 84828 715.11 M.D., FACS 726.90 727.61 Office Visit 11/19/2013 10:45a Orthopaedic Office Hany Chavez 44439 715.11 M.DMatthew, FACS 715.11 726.90 726.90 Office Visit 09/17/2013 9:45a Orthopaedic Office Hany Chavez 67566 719.41 M.D., FACS 715.11 726.90 Office Visit 08/05/2013 10:30a Orthopaedic Office Hany Chavez, 99094 719.41 M.DMatthew, FACS 715.11 Office Visit 02/19/2011 3:20p Orthopaedic Office Luis Cedeno 65516 845.12 MD Office Visit 02/12/2011 2:30p Orthopaedic Office Luis Cedeno 23299 845.12 MD Office Visit 01/13/2008 2:45p Agus Hunt 83275 955.1 Laura Vizcaino, DO Plan of Care 10/21/2017 - Felecia Heaton M.D.E66.9 Obesity, unspecifiedNew Medication: Phendimetrazine Tartrate ER 105 mgComments:no effective on phentermaine, will try another stimulant and if not effect will not try any furtherdiscussed contrave, but due to being on several serotonin meds at this time, will avoid for now due toincreased risk of serotonin syndromecontinue with dietFollow up:1 mosM79.7 FibromyalgiaComments:Has stopped lyrica, will take off med list, will continue with meloxicam PRN and blhvfvqO42.1 Iron deficiencyNew Labs:Iron-Tibc-% SatFerritinComments:will recheck iron, wants to take medication break if levels are upG25.81 Restless legs syndromeComments:c/w requip, will recheck iron levels today, has not noticed a significant improvement at this time, can consider increasing the medication if getting more ubwijlyhpdJ40.31 Encntr screen mammogram for malignant neoplasm of breastNew Xrays:Mammography, Screening, BilateralComments:Last mammogram 11/24/15, discussed need for scheduling [id number] Essential (primary) hypertensionNew Labs:Basic Metabolic PanelComments:BP at goal, c/w lisinopril, recheck BMP todayon several medications
[2017-11-17 13:09] VITALS: BP 141/91
--- NOTE | 2017-11-17 13:51 | UC ---
Hand/Wrist HPI - HPI Summary HPI Summary: pt sustained a right wrist fx when a client from work struck her R wrist 01/06. 05/09 she had surgery. on 10/09/17 she reconstruction surgery. 11/04/17, she had the pins removed a week early due to infection. she went [place] [facility] [place] for ongoing pain/swelling. she states Dr Olivo came to the ER and saw her. the cast was removed and she was given a splint and rd. pt comes in today because she has completed her antibiotic and pain medications but continues to have pain, swelling and warmth with red to her dorsal wrist. she denies fever. - History Of Current Complaint Chief Complaint: UCUpperExtremity Stated Complaint: RIGHT HAND SWELLING,BURNING (WC) Time Seen by Provider: 11/17/17 13:34 Hx Last Menstrual Period: uterine ablation Pain Intensity: 7 Aggravating Factor(s): Movement Alleviating Factor(s): Nothing Associated Signs And Symptoms: Positive: Swelling, Redness - Allergies/Home Medications Allergies/Adverse Reactions: Allergies Allergy/AdvReac Type Severity Reaction Status Date / Time Penicillins Allergy yeast Verified 11/17/17 13:09 sumatriptan [From Imitrex] Allergy Edema Verified 11/17/17 13:09 ALEVE Allergy Hives Uncoded 11/17/17 13:09 allergy shot Allergy anaphylaxis Uncoded 11/17/17 13:09 Home Medications: Home Medications Acetaminophen TAB* [Tylenol TAB*] 500 mg PO Q4H PRN 11/17/17 [History Confirmed 11/17/17] Ibuprofen TAB* [Advil TAB*] 600 mg PO Q6H PRN 11/17/17 [History Confirmed ] PMH/Surg Hx/FS Hx/Imm Hx - Additional Past Medical History Additional PMH: OA, fibromyalgia, post op R wrist infection Cardiovascular History: Hypertension GI/ History: Gastroesophageal Reflux - Surgical History Surgical History: Yes Surgery Procedure, Year, and Place: 2008 Left Forearm Nerve Decompression, [facility]. 2014 RIGHT ROTATOR CUFF REPAIR- [facility]. 2001 Cholecystectomy, [facility]. [address] OFF[address]. 2012 RT CARPAL TUNNEL & ulnar nerve right arm [facility]. 2016 Upper endo and Colonoscpy [facility]. 2016 Cystocele repair with mesh [facility]. 2016 HEART CATH NO STENTS [facility] & [facility]. 04/2017, [place] wrist , [facility] - Family History Known Family History: Positive: Hypertension, Other - migraines Negative: Cardiac Disease, Diabetes - Social History Alcohol Use: Occasionally Alcohol Amount: 2 beers each evening Substance Use Type: None Smoking Status (MU): Former Smoker Type: Cigarettes Amount Used/How Often: pack a week for off and on for many years Length of Time of Smoking/Using Tobacco: 5-6 Years Have You Smoked in the Last Year: Yes When Did the Patient Quit Smoking/Using Tobacco: 2016 Household Exposure Type: Cigarettes - Immunization History Most Recent Influenza Vaccination: 04/2015 Vaccination Up to Date: Yes Review of Systems Constitutional: Negative Skin: Negative Eyes: Negative ENT: Negative Respiratory: Negative Cardiovascular: Negative Gastrointestinal: Negative Genitourinary: Negative Motor: Negative Neurovascular: Negative Musculoskeletal: Other: - R wrist pain, swelling, pink, warmth Neurological: Negative Psychological: Negative Is Patient Immunocompromised?: No All Other Systems Reviewed And Are Negative: Yes Physical Exam Triage Information Reviewed: Yes Appearance: Well-Appearing Vital Signs: Initial Vital Signs Temp 98.7 F 11/17/17 13:01 Pulse 74 11/17/17 13:01 Resp 17 11/17/17 13:01 BP 141/91 11/17/17 13:01 Pulse Ox 99 11/17/17 13:01 Vital Signs Reviewed: Yes Eyes: Positive: Conjunctiva Clear ENT: Positive: Normal ENT inspection Neck: Positive: Supple, Nontender, No Lymphadenopathy Respiratory: Positive: Lungs clear, Normal breath sounds Cardiovascular: Positive: RRR, No Murmur Abdomen Description: Positive: Nontender, No Organomegaly, Soft Bowel Sounds: Positive: Present Musculoskeletal: Positive: Other: - RUE: R wrist with mild swelling, pink, warm and tender to touch. no streaking. no adenopathy. hand has full s/v/m function. post op scars noted. area above distal forearm is unremarkable with full rom. Neurological: Positive: Alert Psychological: Positive: Age Appropriate Behavior Skin Exam: Normal Hand/Wrist Course/Dx - Course Course Of Treatment: concern for infection thus will transfer to the [facility]. pt agrees to go but is refusing ems. resumed her splint here and driving self. pain medication declined by pt because she is driving. pt advised to remaine npo in case she needs surgery. [facility] called. report given to Violet SYED including hx, pe, concern for infection at post op site. provider is familiar with this pt. Hx HTN, tx and pain. - Differential Dx/Diagnosis Provider Diagnoses: INTRACTABLE R WRIST PAIN POST FX/SURGERY. R WRIST SWELLING, WARMTH AND ERYTHEMA POST FX/SURGERY. Discharge - Sign-Out/Discharge Documenting (check all that apply): Discharge/Admit/Transfer - Discharge Plan Condition: Stable Disposition: TRANS [facility] Referrals: Felecia Heaton MD [Primary Care Provider] - Additional Instructions: GO DIRECTLY TO THE [facility] ER UPON DISCHARGE FROM HERE DISCUSSED. DO NOT EAT OR DRINK UNTIL CLEARED TO DO SO BY THE ER. - Billing Disposition and Condition Condition: STABLE Disposition: EMTALA
== END 2017-11-17 13:59 | disposition short-term general hospital (02) ==
LOC: UCCORT 12:36
DX: G89.28 Other chronic postprocedural pain (principal); M25.431 Effusion, right wrist; L53.8 Other specified erythematous conditions; Z88.6 Allergy status to analgesic agent; Z88.0 Allergy status to penicillin; Z88.8 Allergy status to other drugs, medicaments and biological substances; I10 Essential (primary) hypertension; Z87.891 Personal history of nicotine dependence
CPT/HCPCS: 99212; G0463

== ENCOUNTER 2017-11-17 14:57 | Emergency (ER) | payer OTHER ==
[2017-11-17] MEDS ORDERED: HYDROcodone/ACETAMIN 5-325 MG* 1 TAB PO ONE (16:27)
[2017-11-17] MEDS ORDERED: Promethazine TAB* 25 MG PO ONE (16:30)
[2017-11-17] MEDS ORDERED: traMADol TAB* 50 MG PO ONE (16:34)
[2017-11-17 16:41] LABS: EGFR Non-African American 97.7 (>60)
--- NOTE | 2017-11-17 16:41 | ED ---
Upper Extremity Pain - HPI Summary HPI Summary: Complains of nausea, and increasing pain, swelling, redness of right wrist status post right wrist surgery with Dr Olivo 10/09/17. Seen here for same 11/11 , post surgery cast was removed and volar splint was applied. Patient presents today without volar splint. Has follow-up appointment with Dr. Olivo on 11/21. Patient states she has been taking ibuprofen, Tylenol and meloxicam which is not controlling pain. [facility]. Denies loss of sensation or function distally on right hand, fever, cough, sore throat, CP, SOB , V/D, abdomen pain, change in urinary BM. Medical history is OAA, fibromyalgia , HTN. Patient at first denied any change in symptoms since visit to the ED 1 week ago , stated merely the pain was not controlled. Later stated she had increased pain, swelling, redness to right wrist with nausea. - History of Current Complaint Chief Complaint: EDUpperRespComplaint Stated Complaint: RT WRIST PAIN Time Seen by Provider: 11/17/17 15:57 Hx Obtained From: Patient Hx Last Menstrual Period: uterine ablation - Allergies/Home Medications Allergies/Adverse Reactions: Allergies Allergy/AdvReac Type Severity Reaction Status Date / Time Penicillins Allergy yeast Verified 11/17/17 13:09 sumatriptan [From Imitrex] Allergy Edema Verified 11/17/17 13:09 ALEVE Allergy Hives Uncoded 11/17/17 13:09 allergy shot Allergy anaphylaxis Uncoded 11/17/17 13:09 PMH/Surg Hx/FS Hx/Imm Hx Endocrine/Hematology History: Reports: Hx Anemia - as a teen Denies: Hx Diabetes, Hx Thyroid Disease Cardiovascular History: Reports: Hx Hypertension - ON DAILY MEDS Denies: Hx Pacemaker/ICD, Other Cardiovascular Problems/Disorders Respiratory History: Denies: Hx Asthma, Hx Chronic Obstructive Pulmonary Disease (COPD), Other Respiratory Problems/Disorders GI History: Reports: Hx Gastroesophageal Reflux Disease, Hx Irritable Bowel Denies: Hx Gastrointestinal Bleed, Hx Ulcer, Other GI Disorders History: Reports: Hx Kidney Infection - 2 months ago Denies: Hx Renal Disease Musculoskeletal History: Reports: Hx Arthritis - SHOULDERS, KNEES, FINGERS, Hx Tendonitis - right wrist Sensory History: Denies: Hx Contacts or Glasses, Hx Hearing Aid Opthamlomology History: Denies: Hx Contacts or Glasses Neurological History: Reports: Hx Migraine - USUALY EVERY FEW MONTHS, RELIEF WITH QUIET REST & OTC MEDS, Other Neuro Impairments/Disorders - FIBROMYALGIA Denies: Hx Dementia, Hx Seizures, Hx Transient Ischemic Attacks (TIA) Psychiatric History: Reports: Hx Anxiety - TAKING DAILY MEDS, Hx Depression, Hx Panic Disorder - Surgical History Surgery Procedure, Year, and Place: 2008 Left Forearm Nerve Decompression, [facility]. 2014 RIGHT ROTATOR CUFF REPAIR- [facility]. 2001 Cholecystectomy, [facility]. [address] OFFICE. 2012 RT CARPAL TUNNEL & ulnar nerve right arm [facility]. 2016 Upper endo and Colonoscpy [facility]. 2016 Cystocele repair with mesh [facility]. 2016 HEART CATH NO STENTS [facility]. 04/2017, right wrist , [facility] Hx Anesthesia Reactions: No Infectious Disease History: No Infectious Disease History: Denies: Hx Clostridium Difficile, Hx Hepatitis, Hx Human Immunodeficiency Virus (HIV), Hx of Known/Suspected MRSA, Hx Shingles, Hx Tuberculosis, Hx Known/ Suspected VRE, Hx Known/Suspected VRSA, History Other Infectious Disease, Traveled Outside the [place] in Last 30 Days - Family History Known Family History: Positive: Hypertension, Other - migraines Negative: Cardiac Disease, Diabetes - Social History Alcohol Use: Occasionally Alcohol Amount: 2 beers each evening Hx Substance Use: No Substance Use Type: Reports: None Hx Tobacco Use: Yes Smoking Status (MU): Former Smoker Type: Cigarettes Amount Used/How Often: pack a week for off and on for many years Length of Time of Smoking/Using Tobacco: 5-6 Years Have You Smoked in the Last Year: Yes Review of Systems Constitutional: Negative Eyes: Negative ENT: Negative Cardiovascular: Negative Respiratory: Negative Gastrointestinal: Negative Genitourinary: Negative Positive: Arthralgia Positive: Other Neurological: Negative Psychological: Normal All Other Systems Reviewed And Are Negative: Yes Physical Exam - Summary Physical Exam Summary: Mild local redness, swelling, warmth to right wrist. Patient states she cannot fully flex fingers of right hand into a fist. Patient states she is not to flex or extend wrist and is supposed to be in volar cast. Triage Information Reviewed: Yes Vital Signs On Initial Exam: Initial Vitals Temp Pulse Resp BP Pulse Ox 98 F 88 16 154/96 98 11/17/17 15:01 11/17/17 15:01 11/17/17 15:01 11/17/17 15:01 11/17/17 15:01 Vital Signs Reviewed: Yes Appearance: Positive: Well-Appearing Skin: Positive: Warm Head/Face: Positive: Normal Head/Face Inspection Eyes: Positive: Normal Neck: Positive: Supple Respiratory/Lung Sounds: Positive: Clear to Auscultation Cardiovascular: Positive: Normal Abdomen Description: Positive: Nontender Musculoskeletal: Positive: Normal Neurological: Positive: Normal Psychiatric: Positive: Normal AVPU Assessment: Alert - Celeste Coma Scale Best Eye Response: 4 - Spontaneous Best Motor Response: 6 - Obeys Commands Best Verbal Response: 5 - Oriented Coma Scale Total: 15 Diagnostics - Vital Signs Vital Signs Temp Pulse Resp BP Pulse Ox 11/17/17 16:00 95 94 11/17/17 15:53 90 153/91 99 11/17/17 15:01 98 F 88 16 154/96 98 - Laboratory Result Diagrams: 11/17/17 16:08 11/17/17 16:08 Lab Statement: Any lab studies that have been ordered have been reviewed, and results considered in the medical decision making process. Course/Dx - Course Course Of Treatment: Complains of nausea, and increasing pain, swelling, redness of right wrist status post right wrist surgery with Dr Olivo 10/09/17. Seen here for same 11/11, post surgery cast was removed and volar splint was applied. Patient presents today without volar splint. Has follow-up appointment with Dr. Olivo on 11/21. Patient states she has been taking ibuprofen, Tylenol and meloxicam which is not controlling pain. [facility]. Denies loss of sensation or function distally on right hand, fever, cough, sore throat, CP, SOB, V/D, abdomen pain, change in urinary BM. Medical history is OAA, fibromyalgia, HTN. Patient at first denied any change in symptoms since visit to the ED 1 week ago, stated merely the pain was not controlled. Later stated she had increased pain, swelling, redness to right wrist with nausea. Saw Dr. Olivo 1 week ago, and has follow- up appointment 11/21. Patient may be seeking pain meds. Mild redness, swelling to right wrist and hand. Vital signs unremarkable. Labs unremarkable. Discussed patient and her labs with Dr. Collins who reviewed surgery note. Dr. Collins recommended shot of Toradol, prescription for Toradol and call clinic tomorrow and Dr. Olivo will see her tomorrow. - Diagnoses Provider Diagnoses: Wrist pain, right Discharge - Sign-Out/Discharge Documenting (check all that apply): Discharge/Admit/Transfer - Discharge Plan Condition: Stable Disposition: HOME Patient Education Materials: Swollen Joint (ED) Referrals: Felecia Heaton MD [Primary Care Provider] - Kodak Olivo MD [Medical Doctor] - Additional Instructions: Stop taking ibuprofen and meloxicam, and take Toradol instead. Follow-up with your surgeon Dr. Olivo tomorrow. He will see you in clinic tomorrow. Return to the ED for any worsening symptoms - Billing Disposition and Condition Condition: STABLE Disposition: HOME
[2017-11-17 16:47] LABS: ABS Basophils 0 10^3/ul (0-0.2); ABS Eosinophils 0 10^3/ul (0-0.6); ABS Lymphocytes 2.1 10^3/ul (1.0-4.8); ABS Monocytes 0.3 10^3/ul (0-0.8); ABS Neutrophils 3.7 10^3/ul (1.5-7.7); ABS Nucleated RBC 0 10^3/ul; Eosinophil % 0.8 % (0-6); Hematocrit 34 % (35-47); Hemoglobin 11.2 g/dl (12.0-16.0); Lymphocyte % 33.8 % (25-47); Mean Corpuscular HGB Conc 33 g/dl (31-36); Mean Corpuscular Hemoglobin 28 pg (27-31); Mean Corpuscular Volume 86 fL (80-97); Mean Platelet Volume 8.5 um3 (7.4-10.4); Nucleated Red Blood Cells % 0; Platelet Count 269 10^3/ul (150-450); Red Blood Count 3.99 10^6/ul (4.0-5.4); Red Cell Distribution Width 14 % (10.5-15); White Blood Count 6.2 10^3/ul (3.5-10.8)
[2017-11-17] MEDS ORDERED: Ketorolac INJ* 30 MG/ML 1 ML VIAL IM ONE (17:08)
[2017-11-17] MEDS ORDERED: Cephalexin CAP* 500 MG PO ONE (17:10)
[2017-11-17 17:25] VITALS: BP 129/69
== END 2017-11-17 17:24 | disposition home or self-care (01) ==
LOC: ED 14:57
DX: M25.531 Pain in right wrist (principal); R11.0 Nausea; I10 Essential (primary) hypertension; K21.9 Gastro-esophageal reflux disease without esophagitis; G43.909 Migraine, unspecified, not intractable, without status migrainosus; F41.0 Panic disorder [episodic paroxysmal anxiety]; F32.9 Major depressive disorder, single episode, unspecified; Z90.49 Acquired absence of other specified parts of digestive tract; Z88.6 Allergy status to analgesic agent; Z88.2 Allergy status to sulfonamides; Z88.8 Allergy status to other drugs, medicaments and biological substances; Z87.891 Personal history of nicotine dependence
CPT/HCPCS: 36415; 80053; 83605; 85025; 86140; 87040; 96372; 99283; A9270-GY; J1885

== ENCOUNTER 2017-11-24 12:23 | Inpatient (IN) | payer OTHER ==
[2017-11-24] MEDS ORDERED: fentaNYL* 50 MCG/ML 2 ML VIAL (100 MCG VIAL) ONE ×3 (14:18→17:26)
[2017-11-24] MEDS ORDERED: Midazolam* 1 MG/ML 2 ML VIAL (2 MG) ONE (14:18)
[2017-11-24] MEDS ORDERED: Bupivacaine 0.25% SDV* 30 ML ONE (15:11)
[2017-11-24] MEDS ORDERED: Lidocain 1% EPI 1:100,000 * 30 ML MDV ONE (15:11)
[2017-11-24] MEDS ORDERED: Bupivacaine 0.5% SDV PF* 30ML VIAL ONE (15:11)
[2017-11-24] MEDS ORDERED: Propofol* 10 MG/ML 20 ML BTL IV PUSH ONE (15:50)
[2017-11-24] MEDS ORDERED: Lidocaine 2% PF * 5 ML VIAL ONE (15:50)
[2017-11-24] MEDS ORDERED: Dexamethasone IV* 4 MG/ML 1 ML (4 MG) ONE (15:50)
[2017-11-24] MEDS ORDERED: Ondansetron SYRINGE* 4 MG/2 ML SYRINGE (from 40mg/20ml vial) IV ONE (16:00)
[2017-11-24] MEDS ORDERED: Acetaminophen TAB* 325 MG PO PRN (17:00)
[2017-11-24] MEDS ORDERED: PROCHLORPERAZINE INJ 5 MG/ML 2 ML VIAL ONE (17:23)
[2017-11-24] MEDS ORDERED: Scopolamine 1.5 mg* PATCH ONE (17:24)
[2017-11-24] MEDS ORDERED: PROCHLORPERAZINE INJ 5 MG/ML 2 ML VIAL IV PRN (17:26)
[2017-11-24] MEDS ORDERED: Metoclopramide IV* 5 MG/ML 2 ML VIAL IV PRN (17:26)
[2017-11-24] MEDS ORDERED: Scopolamine 1.5 mg* PATCH TRANSDERM PRN (17:26)
[2017-11-24] MEDS ORDERED: Naloxone* 0.4 MG/ML 1 ML VIAL IV PRN (17:26)
[2017-11-24] MEDS ORDERED: oxyCODONE/Acetamin 5/325 MG* TAB PO PRN (17:27)
[2017-11-24] MEDS ORDERED: diPHENhydraMINE IV* 50 MG/ML 1 ml VIAL (BENADRYL) IV PRN (17:27)
[2017-11-24] MEDS ORDERED: Ondansetron 40 MG VIAL* 2 MG/ML 20 ML VIAL IV PRN (17:27)
[2017-11-24] MEDS ORDERED: diPHENhydraMINE PO* 25 MG PO PRN (17:27)
[2017-11-24] MEDS ORDERED: Magnesium Hydroxide LIQ* 30 ML UDC PO PRN (17:27)
[2017-11-24] MEDS: fentaNYL* 50 MCG/ML 2 ML VIAL (100 MCG VIAL) IV PRN ×4 (17:28→18:22)
--- NOTE | 2017-11-24 17:36 | PN ---
Progress Note - Progress Note Date of Service: 11/24/17 Note: Due to the concerns for infection and potential osteomyelitis we'll plan to keep Kerry in the hospital and place her on IV antibiotics while we await cultures. I will have Dr. Melendez consult.
[2017-11-24] MEDS ORDERED: Nystatin CREAM* 15 GM TUBE TOPICAL PRN (17:38)
[2017-11-24] MEDS ORDERED: Piperacillin/Tazobac ADVAN(*) 3.375 GM in NS 0.9% 100 ML* 100 ML IVPB ONE (17:40)
[2017-11-24] MEDS ORDERED: HYDROmorphone INJ* 2 MG/ML CARPUJECT SYRINGE ONE (17:44)
[2017-11-24] MEDS: HYDROmorphone INJ* 1 MG/ML CARPUJECT SYRINGE IV PRN ×2 (17:46→18:01)
[2017-11-24] MEDS ORDERED: Zosyn per Pharmacy* NOTE FOLLOW UP SCH (18:00)
[2017-11-24] MEDS ORDERED: oxyCODONE/Acetamin 5/325 MG* TAB ONE (18:07)
[2017-11-24] MEDS: oxyCODONE/Acetamin 5/325 MG* TAB PO PRN ×2 (18:09→22:33)
[2017-11-24] MEDS ORDERED: Vancomycin(*) 1,000 MG in NS 0.9% 250 ML* 250 ML IVPB ONE (21:00)
[2017-11-24] MEDS: Enoxaparin(*) 40 MG/0.4 ML SYR SUBCUT SCH (21:34)
[2017-11-24] MEDS: Docusate CAP* 100 MG PO SCH (21:34)
[2017-11-24] MEDS: Ropinirole TAB* 0.5 MG TAB PO SCH (21:34)
[2017-11-24] MEDS: Magnesium Hydroxide LIQ* 30 ML UDC PO SCH (21:34)
[2017-11-24] MEDS: ZOSYN 3.375 GM Q8H per EXTENDED INFUSION IVPB SCH ×2 (23:17)
[2017-11-25] MEDS: oxyCODONE/Acetamin 5/325 MG* TAB PO PRN ×5 (03:28→22:36)
[2017-11-25] MEDS: ZOSYN 3.375 GM Q8H per EXTENDED INFUSION IVPB SCH ×6 (05:59→22:36)
[2017-11-25] MEDS: Omeprazole CAP* 20 MG PO SCH (07:36)
[2017-11-25] MEDS: Citalopram TAB* 20 MG PO SCH (07:58)
[2017-11-25] MEDS: Magnesium Hydroxide LIQ* 30 ML UDC PO SCH ×2 (07:58→21:21)
[2017-11-25] MEDS: DULoxetine DR CAP* 60 MG CAP.DR PO SCH (07:58)
[2017-11-25] MEDS: Lisinopril TAB* 10 MG PO SCH (07:58)
[2017-11-25] MEDS: Magnesium Oxide TAB* 400 MG PO SCH (07:58)
[2017-11-25] MEDS: Docusate CAP* 100 MG PO SCH ×2 (07:58→21:21)
[2017-11-25] MEDS: Ferrous Sulfate TAB* 325 MG PO SCH (07:58)
[2017-11-25 09:26] LABS: White Blood Count 11.1 10^3/ul (3.5-10.8)
[2017-11-25] MEDS: Meloxicam(NF) 15 MG TAB PO SCH (11:11)
--- NOTE | 2017-11-25 11:35 | PN ---
Progress Note - Progress Note Date of Service: 11/25/17 SOAP: Subjective: []Patient seen at bedside. She feels well this morning with no chest pain, shortness of breath, feeling of fever or chills. Objective: [] Vital Signs Temp 98.2 F 11/25/17 15:11 Pulse 73 11/25/17 15:11 Resp 16 11/25/17 16:03 BP 115/65 11/25/17 15:11 Pulse Ox 97 11/25/17 15:11 Intake & Output 11/24/17 11/25/17 11/25/17 18:59 06:59 18:59 Intake Total 1100 1090 770 Output Total 1150 700 Balance 1100 -60 70 Weight 273 lb Intake: IV Fluids 1100 LR 1100 Oral 1090 770 Output: Urine 1150 700 Laboratory Last Values WBC 11.1 10^3/ul (3.5-10.8) H 11/25/17 09:06 ESR 36 mm/Hr (0-14) H 11/25/17 09:06 General: Well appearing, NAD RUE: splint CDI. Sensation intact to light touch throughout exposed digits. Capillary refill less than two seconds distally. Able to wiggle exposed digits, produce thumbs up and a-ok sign. No erythema proximal to splint Assessment: []SP I&D right wrist Dr Olivo 11/25/17 Plan: []NWB RUE ID to see today to determine further abx management Lovenox DVT prophylaxis
--- NOTE | 2017-11-25 13:48 | OP ---
DATE OF OPERATION: 11/24/17 - ROOM #333 DATE OF : 70 SURGEON: Kodak Olivo MD ASSISTANTS: KUNAL Valadez and KUNAL Gonsalez student. Revenue Liaison was needed for the entirety of the procedure to aide in positioning of the arm and retraction. ANESTHESIOLOGIST: Dr. Valerio. ANESTHESIA: General. PRE-OP DIAGNOSES: Potential right wrist infection, status post scapholunate ligament reconstructive surgery a little over a month ago. POST-OP DIAGNOSES: 1. Potential right wrist infection, status post scapholunate ligament reconstructive surgery a little over a month ago. 2. Attenuation of the ligament reconstruction with some erosion at the dorsal ulnar aspect of the distal radius and dorsal aspect of the lunate in the area of the graft. OPERATIVE PROCEDURE: Irrigation and debridement of right wrist and right wrist dorsal soft tissues with cultures including bone cultures from the lunate and distal radius. INDICATIONS: Kerry had the surgery, initially she had done well. Her pain has been increasing. She did have a pin tract infection. I had pulled the pin and put her on cephalexin at the pin site and it promptly stopped draining. She has not drained since, but she had pain. It saw her a couple of Mondays ago when she was in the emergency room. She had no drainage and slight swelling but an otherwise benign appearing wrist with no drainage so we switched her from a cast to a splint so she could keep an eye on the wrist and also to see if that would help with the pain. I didn't hear anything more from her and was on vacation earlier this week. It seems she ended up in the emergency room on , one week ago this last Friday and was sent home. My partner then saw her on Friday and reviewed her labs which showed an elevated CRP was elevated. He had ordered an MRI and started her on Bactrim. This took a couple of days to get done. I became aware of this on Friday when she came to my office. We got the MRI done and reviewed it together late Friday afternoon. The MRI showed showed edematous changes consistent with potential osteomyelitis in the capitate and proximal row of the carpal bones and in the distal radius. She told me on Friday that her pain was significantly improved since starting the Bactrim and that it was very itchy but much improved. I did attempt to aspirate the wrist on Friday afternoon in the office. However, it was a dry tap. I told her though we could observe it through the weekend but that if she did not have significant improvement over the weekend I definitely thought that that we should do an I and D and make sure everything was cleaned up and take a lot of cultures so that we can get a definitive diagnosis one way or the other. I spoke with her this morning on the phone and she was still having pain so I told them I did not think we should delay any longer and one way or another we should get cultures. I've spoken with Dr. Sarabia with Infectious Disease and he agreed and he is going to consult on her. ESTIMATED BLOOD LOSS: 2 mL. COMPLICATIONS: None. FINDINGS: She did have some erosion of the dorsal lunate bone in the area of the graft tunnel. There was a kissing lesion on the dorsal aspect of distal radius involving about the dorsal 25% of the lunate facet with beginnings of an associated cystic lesion in that area. The graft was attenuated and did not look like it was providing much by way of any stability. DESCRIPTION OF PROCEDURE: Kerry was seen in the preoperative holding area. The correct side, site, and procedure were identified. We came back to the operating room. The arm was prepped and draped in the usual fashion. A time- out was performed. I began by opening up her prior wound. I took the dissection down to the extensor retinaculum, full thickness flaps were raised off the extensor retinaculum. There were a couple of pockets of fluid and a scant amount of fluid, I did take cultures of this. I then freed up all of the scar tissue and new sheaths developing about the tendons. I washed out all the tendons. The extensor retinaculum was opened where it had been open previously, all of the Ethibond sutures were removed. The extensor tendons were then retracted out of the way. I reopened the radiocarpal capsulotomy, which ran along the rim of the dorsal distal radius. The cultures were taken from the joint. These included both tissue and fluid cultures. I then examined the graft, it was attenuated. The most concerning thing was that there was some erosion in the dorsal lunate around the area of the graft tunnel with an associated kissing lesion on the dorsal aspect of the lunate facet of the distal radius. There was a cystic lesion developing there. I curetted out both of these lesions, I sent cultures. I debrided the area of erosion in the lunate. I got everything back to what looked like good clean healthy viable tissue. I examined the graft. It just did not look like it was doing anything. Also, the kissing lesion was in the area of where the graft is prominent dorsally where it had been sutured together. I decided it would be better to remove this bit of the graft, so that was excised. Once everything was clean and healthy looking, there was no more loose or friable tissue and we had irrigated everything out copiously with almost 6 L of fluid using the cysto tubing and I also opened the mid carpal joint and irrigated that out as well. I then closed my capsulotomy with 4-0 Prolene suture. The tendons were placed back in the appropriate location. The extensor retinaculum was closed with 4-0 Prolene suture. Skin was closed with 4-0 nylon suture loosely. The wound was dressed with Xeroform, 4x4, sterile Webril and a cock-up wrist splint was applied. Tourniquet was deflated. She was taken to the recovery room in stable condition. POSTOPERATIVE PLAN: Given the operative findings and the preoperative workup, I think it is best just to keep her in hospital and put her on broad spectrum antibiotics and await the cultures. I have discussed this with Dr. Sarabia. He is going to consult on her and we will continue antibiotics per his recommendations but for now, we will keep her in the hospital and give her IV antibiotics just to make sure. [id number]/[facility] #: [id number] RIK
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
[2017-11-25] MEDS: Morphine VIAL* 4 MG/ML VIAL (1 ml vial) IV PRN (16:03)
[2017-11-25] MEDS: Enoxaparin(*) 40 MG/0.4 ML SYR SUBCUT SCH (18:17)
[2017-11-25] MEDS ORDERED: Enoxaparin(*) 40 MG/0.4 ML SYR SUBCUT SCH (21:00)
[2017-11-25] MEDS: Ropinirole TAB* 0.5 MG TAB PO SCH (21:21)
--- NOTE | 2017-11-25 22:36 | PN ---
Progress Note - Progress Note Date of Service: 11/25/17 Note: I spoke with Kerry today at the end of my clinic on the phone. Her cultures have grown MSSA so our suspicion for infection is confirmed. I have spoken with Dr. Melendez. We will get antibiotics arranged for her to go home on. I'll monitor her closely as to the need for another washout. We talked about the potential for degenerative changes in the joint. I will follow her very closely.
[2017-11-26] MEDS: ZOSYN 3.375 GM Q8H per EXTENDED INFUSION IVPB SCH ×6 (06:34→23:17)
[2017-11-26] MEDS: Omeprazole CAP* 20 MG PO SCH (07:26)
[2017-11-26] MEDS: oxyCODONE/Acetamin 5/325 MG* TAB PO PRN ×3 (07:37→19:49)
[2017-11-26] MEDS: Citalopram TAB* 20 MG PO SCH (07:38)
[2017-11-26] MEDS: Magnesium Hydroxide LIQ* 30 ML UDC PO SCH ×2 (07:40→21:48)
[2017-11-26] MEDS: Lisinopril TAB* 10 MG PO SCH (07:40)
[2017-11-26] MEDS: Ferrous Sulfate TAB* 325 MG PO SCH (07:40)
[2017-11-26] MEDS: Docusate CAP* 100 MG PO SCH ×2 (07:40→21:46)
[2017-11-26] MEDS: Magnesium Oxide TAB* 400 MG PO SCH (07:40)
[2017-11-26] MEDS: Meloxicam(NF) 15 MG TAB PO SCH (07:40)
[2017-11-26] MEDS: DULoxetine DR CAP* 60 MG CAP.DR PO SCH (07:40)
--- NOTE | 2017-11-26 07:50 | PN ---
Progress Note - Progress Note Date of Service: 11/26/17 Note: I rounded on Kerry this morning. She's doing much better. Her pain is improved this morning. She's moving the fingers much easier. Denies any systemic symptoms. VSS The splint is in place. She is moving the fingers. WBC was 11. ESR 36. Cultures with MSSA A/P: POD#2. Kerry and I had a nice long discussion about both immediate treatment needs and also long-term possibilities for the reason. I really want to be aggressive with this now that we know it is an infection. We talked about another potential washout just to make sure everything is as clean as possible prior to her going home. IV antibiotics are being arranged. I really appreciate the assistance of Dr. Sarabia and his colleague. I will go ahead and make her npo. I would like to do that before she goes home. I just want to make sure everything is as clean as possible so that the antibiotics can have the best chance possible to work. The plan will be for irrigation and debridement of the right wrist.
[2017-11-26 08:40] LABS: ABS Basophils 0 10^3/ul (0-0.2); ABS Eosinophils 0.1 10^3/ul (0-0.6); ABS Lymphocytes 3.8 10^3/ul (1.0-4.8); ABS Monocytes 0.4 10^3/ul (0-0.8); ABS Neutrophils 3.2 10^3/ul (1.5-7.7); ABS Nucleated RBC 0 10^3/ul; Eosinophil % 0.9 % (0-6); Hematocrit 35 % (35-47); Hemoglobin 11.3 g/dl (12.0-16.0); Lymphocyte % 50.4 % (25-47); Mean Corpuscular HGB Conc 33 g/dl (31-36); Mean Corpuscular Hemoglobin 28 pg (27-31); Mean Corpuscular Volume 86 fL (80-97); Mean Platelet Volume 8.4 um3 (7.4-10.4); Nucleated Red Blood Cells % 0; Platelet Count 300 10^3/ul (150-450); Red Blood Count 4.02 10^6/ul (4.0-5.4); Red Cell Distribution Width 14 % (10.5-15); White Blood Count 7.5 10^3/ul (3.5-10.8)
[2017-11-26 08:57] LABS: EGFR Non-African American 89.7 (>60)
[2017-11-26 09:07] LABS: INR 0.91 (0.77-1.02)
[2017-11-26] MEDS ORDERED: Buffered Lidocaine 0.9% SYRIN* 5 ML/SYR SYRINGE INTRADERM ONE (17:00)
[2017-11-26] MEDS ORDERED: Midazolam* 1 MG/ML 2 ML VIAL (2 MG) ONE (18:16)
[2017-11-26] MEDS ORDERED: Bupivacaine 0.25% SDV* 30 ML ONE (18:21)
[2017-11-26] MEDS ORDERED: Lidocaine 2% PF * 5 ML VIAL ONE (18:31)
[2017-11-26] MEDS ORDERED: fentaNYL* 50 MCG/ML 2 ML VIAL (100 MCG VIAL) ONE (18:34)
[2017-11-26] MEDS ORDERED: Famotidine IV* 10 MG/ML 2 ML (20 mg) ONE (18:35)
[2017-11-26] MEDS ORDERED: Dexamethasone IV* 4 MG/ML 1 ML (4 MG) ONE (18:35)
[2017-11-26] MEDS ORDERED: Propofol* 10 MG/ML 20 ML BTL IV PUSH ONE (18:35)
[2017-11-26] MEDS ORDERED: Labetalol IV* 5 MG/ML 20 ML VIAL ONE (19:05)
[2017-11-26] MEDS ORDERED: Ondansetron ODT TAB* 4 MG PO PRN (19:13)
[2017-11-26] MEDS ORDERED: Levalbuterol 0.63MG/3ML NEB* UNIT OF USE INH PRN (19:13)
[2017-11-26] MEDS ORDERED: Naloxone* 0.4 MG/ML 1 ML VIAL IV PRN (19:13)
[2017-11-26] MEDS ORDERED: PROCHLORPERAZINE INJ 5 MG/ML 2 ML VIAL IV PRN (19:13)
[2017-11-26] MEDS ORDERED: Morphine VIAL* 10 MG/ML 1 ML VIAL ONE (19:48)
[2017-11-26] MEDS ORDERED: oxyCODONE/Acetamin 5/325 MG* TAB ONE (19:49)
[2017-11-26] MEDS: Morphine VIAL* 4 MG/ML VIAL (1 ml vial) IV PRN ×2 (19:50→21:54)
[2017-11-26] MEDS: Ropinirole TAB* 0.5 MG TAB PO SCH (21:45)
[2017-11-27] MEDS: oxyCODONE/Acetamin 5/325 MG* TAB PO PRN ×5 (04:17→20:41)
[2017-11-27 05:43] LABS: Hematocrit 36 % (35-47); Hemoglobin 11.8 g/dl (12.0-16.0); Mean Platelet Volume 8.5 um3 (7.4-10.4); Platelet Count 328 10^3/ul (150-450); White Blood Count 9.4 10^3/ul (3.5-10.8)
[2017-11-27 06:02] LABS: EGFR Non-African American 84.1 (>60)
[2017-11-27] MEDS: Morphine VIAL* 4 MG/ML VIAL (1 ml vial) IV PRN (06:22)
[2017-11-27] MEDS: ZOSYN 3.375 GM Q8H per EXTENDED INFUSION IVPB SCH ×2 (06:26)
[2017-11-27] MEDS: Omeprazole CAP* 20 MG PO SCH (07:13)
[2017-11-27] MEDS: Ibuprofen TAB* 600 MG PO PRN ×2 (08:33→16:41)
--- NOTE | 2017-11-27 08:50 | PN ---
Progress Note - Progress Note Date of Service: 11/27/17 SOAP: Subjective: [Pt was seen sitting up in bed this am. Complains of pain in the wrist. Slept on and off through the night. Denies any numbness or tingling, chest pain or SOB. ] Objective: [General: Pt is alert, awake and oriented. NAD. MSK, RUE: Dressing is c/d/i. pt is able to flex and extend all digits without pain. Also able to flex and extend elbow with no pain. Sensation in all digits intact to light touch. ] Vital Signs Temp 97.9 F 11/27/17 07:18 Pulse 73 11/27/17 07:18 Resp 18 11/27/17 08:33 BP 126/74 11/27/17 07:18 Pulse Ox 97 11/27/17 07:21 Intake & Output 11/26/17 11/27/17 11/27/17 18:59 06:59 18:59 Intake Total 320 1640 Output Total 1400 1600 Balance -1080 40 Intake: IV Fluids 20 400 LR 400 NS (0.9%) 20 IVPB 100 ABX - ZOSYN 100 Oral 200 1240 Output: Urine 1400 1600 Other: # Bowel Movements 0 # Voids 2 Microbiology 11/24/17 16:13 Wound Gram Stain - Final Tissue Tissue Culture - Preliminary Staphylococcus Aureus 11/24/17 16:58 Wound Gram Stain - Final Tissue Tissue Culture - Preliminary No Growth Day 2 11/24/17 16:04 Skin and Soft Tissue MRSA/MSSA (PCR - Final Wrist Right Mrsa Negative S.aureus Positive Gram Stain - Final Wound Culture - Preliminary Staphylococcus Aureus 11/24/17 16:33 Wound Gram Stain - Final Wound Tissue Culture - Preliminary Staphylococcus Aureus Skin and Soft Tissue MRSA/MSSA (PCR - Final Mrsa Negative S.aureus Positive 11/24/17 16:47 Skin and Soft Tissue MRSA/MSSA (PCR - Final Wrist Right Mrsa Negative S.aureus Positive Gram Stain - Final Wound Culture - Preliminary Staphylococcus Aureus Assessment: [S/P Right wrist I&D ] Plan: [- Abx changed from zosyn to ancef 2g q8h - airport planner will work on approval for home abx. - PICC line today - Once PICC line is placed and abx have been approved for home we will discharge the pt. ]
[2017-11-27] MEDS ORDERED: ceFAZolin 2 GM PREMIX (*) 2 GM/50 ML BAG IVPB SCH (09:00)
[2017-11-27] MEDS: DULoxetine DR CAP* 60 MG CAP.DR PO SCH (09:12)
[2017-11-27] MEDS: Magnesium Hydroxide LIQ* 30 ML UDC PO SCH ×2 (09:12→20:39)
[2017-11-27] MEDS: Ferrous Sulfate TAB* 325 MG PO SCH (09:12)
[2017-11-27] MEDS: Docusate CAP* 100 MG PO SCH ×2 (09:13→20:40)
[2017-11-27] MEDS: Lisinopril TAB* 10 MG PO SCH (09:13)
[2017-11-27] MEDS: Citalopram TAB* 20 MG PO SCH (09:13)
[2017-11-27] MEDS: Magnesium Oxide TAB* 400 MG PO SCH (09:13)
[2017-11-27] MEDS: Meloxicam(NF) 15 MG TAB PO SCH (09:14)
[2017-11-27] MEDS ORDERED: NS 0.9% 1000 ML* 1,000 ML IV SCH (10:00)
--- NOTE | 2017-11-27 10:22 | PN ---
Progress Note - Progress Note Date of Service: 11/27/17 SOAP: Subjective: CC: R wrist pain HPI:47 year old woman with R wrist infection s/p I&D x2. Pain manageable, no fever, rash, or diarrhea. Had sweats this morning. Appetite is good. Objective: Vital Signs Temp 36.6 C 11/27/17 07:18 Pulse 73 11/27/17 07:18 Resp 18 11/27/17 08:33 BP 126/74 11/27/17 07:18 Pulse Ox 97 11/27/17 07:21 Intake & Output 11/26/17 11/27/17 11/27/17 18:59 06:59 18:59 Intake Total 320 1640 240 Output Total 1400 1600 Balance -1080 40 240 Intake: IV Fluids 20 400 LR 400 NS (0.9%) 20 IVPB 100 ABX - ZOSYN 100 Oral 200 1240 240 Output: Urine 1400 1600 Other: # Bowel Movements 0 # Voids 2 Gen:awake, no distress HEENT:no thrush Heart:RRR no murmur Lungs:CTA BL Abd:+BS NTND soft Skin: no rash MSK: R wrist wrapped Laboratory Results - last 24 hr 11/27/17 11/27/17 05:11 05:11 WBC 9.4 Hgb 11.8 L Hct 36 Plt Count 328 MPV 8.5 ESR 34 H Sodium 136 L Potassium 4.3 Chloride 103 Carbon Dioxide 24 Anion Gap 9 BUN 10 Creatinine 0.74 Est GFR ( Amer) 108.2 Est GFR (Non-Af Amer) 84.1 BUN/Creatinine Ratio 13.5 Glucose 141 H Calcium 8.9 Assessment: 1. MSSA septic joint and acute osteomyelitis 2. PCN allergy, tolerated zosyn here 3. obesity Plan: 1. ancef 2 gm IV Q8hrs day with weekly cbc, cmp, crp and fu with me 1-2 weeks 35 minutes floor time >50% face to face in counseling regarding home antibiotics
[2017-11-27] MEDS: Enoxaparin(*) 40 MG/0.4 ML SYR SUBCUT SCH (12:37)
[2017-11-27] MEDS: ceFAZolin 2 GM PREMIX (*) 2 GM/50 ML BAG IVPB SCH (15:52)
[2017-11-27] MEDS: Ropinirole TAB* 0.5 MG TAB PO SCH (20:40)
--- NOTE | 2017-11-27 21:04 | OP ---
DATE OF OPERATION: 11/26/17 - ROOM #333 DATE OF : 70 SURGEON: Kodak Olivo MD ASSISTANTS: KUNAL Dalal ANESTHESIOLOGIST: Darien Park MD ANESTHESIA: General. PRE-OP DIAGNOSIS: Right wrist infection. POST-OP DIAGNOSIS: Right wrist infection. OPERATIVE PROCEDURE: Arthrotomy and irrigation and debridement of right wrist. INDICATIONS: Kerry has, unfortunately, had a postoperative wrist infection. It has been going on now for a couple of weeks. It has been suppressed by antibiotics, but I did take her on Friday about 48 hours ago and I washed out the wrist and cultures did unfortunately come back as positive for MSSA. She has been on Zosyn. I told her I wanted to make sure the wrist as as clean as possible and I therefore thought we should go back one more time and just make sure everything was completely clean and there was no devitalized tissue in order to give the antibiotics the absolute best chance of working. She is very much in agreement, so we decided to go back to the operating room for repeat washout tonight. ESTIMATED BLOOD LOSS: 2 mL. COMPLICATIONS: None. FINDINGS: Things were looking much hand rug cleaner. They really did look tremendously improved. DESCRIPTION OF PROCEDURE: Kerry was seen in the preoperative area. We came back to the operating room and the arm was scrubbed with the Betadine prep, in straight and standard fashion, a time-out was performed. The arm was exsanguinated and the tourniquet was inflated to 250 mmHg. I removed her stitches. The incision was reopened bluntly with the tenotomy scissors. I went ahead and removed the stitches in the extensor retinaculum. The extensor tendons were examined and any nonhealthy tenosynovial tissue was debrided off until the tendons were nice and clean. I reopened the arthrotomy and brought this back distally in the initial location for the arthrotomy to expose the mid carpal joint as well. With the radially based capsular flap retracted, I irrigated out the radiocarpal and midcarpal joints. The curette was used to again reexamine the defects in the lunate and the distal radius. These were looking very good, nothing but good firm bone remained. Once I had removed any questionable tissue, everything looked clean and healthy and vitalized. I went ahead and closed the capsulotomy with the 4-0 Prolene suture. The tendons were placed back in their location, the extensor retinaculum was closed with 4-0 Prolene suture, the skin was closed with 4-0 nylon suture loosely. The wounds were dressed with Xeroform, 4x4s, sterile Webril, and a cock-up wrist splint was applied. The tourniquet was deflated. Total tourniquet time was 41 minutes. She was woken up and taken to the recovery room in stable condition. [id number]/[facility] #: [id number] [facility] HOSPITALAmrita
[2017-11-28] MEDS: ceFAZolin 2 GM PREMIX (*) 2 GM/50 ML BAG IVPB SCH ×5 (00:48→23:48)
[2017-11-28] MEDS: Magnesium Oxide TAB* 400 MG PO SCH (08:00)
[2017-11-28] MEDS: Ferrous Sulfate TAB* 325 MG PO SCH (08:00)
[2017-11-28] MEDS: Ibuprofen TAB* 600 MG PO PRN ×2 (08:00→15:40)
[2017-11-28] MEDS: Citalopram TAB* 20 MG PO SCH (08:01)
[2017-11-28] MEDS: Omeprazole CAP* 20 MG PO SCH (08:01)
[2017-11-28] MEDS: Magnesium Hydroxide LIQ* 30 ML UDC PO SCH ×2 (08:01→21:30)
[2017-11-28] MEDS: Lisinopril TAB* 10 MG PO SCH (08:01)
[2017-11-28] MEDS: Docusate CAP* 100 MG PO SCH ×2 (08:01→21:29)
[2017-11-28] MEDS: Meloxicam(NF) 15 MG TAB PO SCH (08:12)
--- NOTE | 2017-11-28 08:35 | PN ---
Progress Note - Progress Note Date of Service: 11/28/17 SOAP: Subjective: CC: R wrist pain HPI:47 year old woman with R wrist infection s/p I&D x2. Pain improving in right wrist, no fever, rash, or diarrhea. Anxious to go home. Objective: Vital Signs Temp 36.6 C 11/28/17 07:21 Pulse 74 11/28/17 07:21 Resp 18 11/28/17 07:21 BP 157/81 11/28/17 07:21 Pulse Ox 98 11/28/17 07:21 Intake & Output 11/27/17 11/28/17 11/28/17 18:59 06:59 18:59 Intake Total 940 900 Output Total 500 800 Balance 440 100 Intake: IVPB 100 ABX - ZOSYN 100 Oral 840 900 Output: Urine 500 800 Gen:awake, no distress HEENT:no thrush Heart:RRR no murmur Lungs:CTA BL Abd:+BS NTND soft Skin: no rash MSK: R wrist wrapped, able to move fingers Microbiology 11/24/17 16:04 Skin and Soft Tissue MRSA/MSSA (PCR - Final Wrist Right Mrsa Negative S.aureus Positive Gram Stain - Final Wound Culture - Preliminary Staphylococcus Aureus Streptococcus Mitis/Oralis 11/24/17 16:58 Wound Gram Stain - Final Tissue Tissue Culture - Preliminary No Growth Day 3 11/24/17 16:13 Wound Gram Stain - Final Tissue Tissue Culture - Preliminary Staphylococcus Aureus 11/24/17 16:33 Wound Gram Stain - Final Wound Tissue Culture - Preliminary Staphylococcus Aureus Skin and Soft Tissue MRSA/MSSA (PCR - Final Mrsa Negative S.aureus Positive 11/24/17 16:47 Skin and Soft Tissue MRSA/MSSA (PCR - Final Wrist Right Mrsa Negative S.aureus Positive Gram Stain - Final Wound Culture - Preliminary Staphylococcus Aureus Assessment: 1. MSSA septic joint and acute osteomyelitis 2. PCN allergy, tolerated zosyn here 3. obesity Plan: 1. ancef 2 gm IV Q8hrs day with weekly cbc, cmp, crp and fu with me 1-2 weeks 35 minutes floor time >50% face to face in counseling regarding fu monitoring and side effects of abx including fever, rash, or diarrhe, she will call if any
[2017-11-28] MEDS: DULoxetine DR CAP* 60 MG CAP.DR PO SCH (08:37)
[2017-11-28] MEDS: oxyCODONE/Acetamin 5/325 MG* TAB PO PRN ×4 (09:02→23:47)
--- NOTE | 2017-11-28 09:24 | PN ---
Progress Note - Progress Note Date of Service: 11/28/17 SOAP: Subjective: 47 y/o female s/p R post-op wrist infection s/p I&D 11/[address] Olivo. Patient eager for D/C, understands need for IV ABX. VSS afebrile Objective: General- well appearing, NAD. AO, resting in bed comfortably MSK- Dressing intact, no drainage noted. Physical exam performed by Dr. Olivo Vital Signs Temp 97.9 F 11/28/17 07:21 Pulse 74 11/28/17 07:21 Resp 20 11/28/17 09:02 BP 157/81 11/28/17 07:21 Pulse Ox 98 11/28/17 07:21 Intake & Output 11/27/17 11/28/17 11/28/17 18:59 06:59 18:59 Intake Total 940 900 74 Output Total 500 800 500 Balance 440 100 -426 Intake: IV Fluids 20 NS (0.9%) 20 IVPB 100 54 ABX - ZOSYN 100 cefazolin 54 Oral 840 900 Output: Urine 500 800 500 Assessment: 47 y/o female s/p R post-op wrist infection s/p I&D 11/[address] Olivo. Plan: - Home with IV ABX, follow up with Dr. No to q8 x 42 days with weekly labs - Follow up with Dr. Olivo within 1 week for wound check - Continue pain control - D/C per work comp approval of ABX IV Acetaminophen (Tylenol Tab*) 650 mg PO Q4H PRN PRN Reason: PAIN OR TEMPERATURE >100.5 Citalopram Hydrobromide (Celexa Tab*) [address] [facility] Last Admin: 11/28/17 08:01 Dose: 20 mg Diphenhydramine HCl (Benadryl Iv*) 25 mg IV Q6H PRN PRN Reason: itching Diphenhydramine HCl (Benadryl Po*) 25 mg PO Q6H PRN PRN Reason: itching Docusate Sodium (Colace Cap*) [address] [facility] Last Admin: 11/28/17 08:01 Dose: 100 mg Duloxetine HCl (Cymbalta Cap*) [address] [facility] Last Admin: 11/28/17 08:37 Dose: 60 mg Enoxaparin Sodium (Lovenox(*)) [address] [facility] Last Admin: 11/27/17 12:37 Dose: 40 mg Ferrous Sulfate (Ferrous Sulfate Tab*) [address] [facility] Last Admin: 11/28/17 08:00 Dose: 325 mg Heparin Sodium (Porcine) (Heparin Flush Picc/Ml/Cvc(*)) 1 - 3 ml FLUSH 0600, 1800 [facility] PRN Reason: Protocol Last Admin: 11/28/17 09:02 Dose: 1 ml Ibuprofen (Motrin Tab*) 600 mg PO TID WITH MEALS PRN PRN Reason: PAIN Last Admin: 11/28/17 08:00 Dose: 600 mg Lisinopril (Prinivil Tab*) [address] [facility] Last Admin: 11/28/17 08:01 Dose: 10 mg Magnesium Hydroxide (Milk Of Magnesia Liq*) [address] [facility] Last Admin: 11/28/17 08:01 Dose: 30 ml Magnesium Hydroxide (Milk Of Magnesia Liq*) 30 ml PO Q6H PRN PRN Reason: constipation Magnesium Oxide (Magox 400 Tab*) [facility] [place] Last Admin: 11/28/17 08:00 Dose: 400 mg Meloxicam (Mobic(Nf)) [address] [facility] Last Admin: 11/28/17 08:12 Dose: Not Given Morphine Sulfate (Morphine Vial*) 5 mg IV Q2H PRN PRN Reason: PAIN - BREAKTHROUGH Last Admin: 11/27/17 06:22 Dose: 5 mg Nystatin (Nystatin Cream*) 1 applic TOPICAL BID PRN PRN Reason: RASH Last Admin: 11/24/17 21:35 Dose: 1 applic Omeprazole (Prilosec Cap*) 40 mg PO QA@0730 [facility] Last Admin: 11/28/17 08:01 Dose: 40 mg Ondansetron HCl (Zofran 40 Mg Vial*) 4 mg IV Q6H PRN PRN Reason: nausea Oxycodone/Acetaminophen (Percocet 5/325 Tab*) 2 tab PO Q4H PRN PRN Reason: PAIN - MODERATE TO SEVERE Last Admin: 11/28/17 09:02 Dose: 2 tab Oxycodone/Acetaminophen (Percocet 5/325 Tab*) 1 tab PO Q4H PRN PRN Reason: PAIN Ropinirole HCl (Requip Tab*) 0.5 mg PO BEDTIME [facility]ERNA Last Admin: 11/27/17 20:40 Dose: 0.5 mg
[2017-11-28] MEDS: Enoxaparin(*) 40 MG/0.4 ML SYR SUBCUT SCH (12:56)
[2017-11-28] MEDS: Ropinirole TAB* 0.5 MG TAB PO SCH (21:29)
[2017-11-29 07:53] VITALS: BP 162/84
[2017-11-29] MEDS: ceFAZolin 2 GM PREMIX (*) 2 GM/50 ML BAG IVPB SCH (08:02)
[2017-11-29] MEDS: Magnesium Oxide TAB* 400 MG PO SCH (08:05)
[2017-11-29] MEDS: Lisinopril TAB* 10 MG PO SCH (08:05)
[2017-11-29] MEDS: Docusate CAP* 100 MG PO SCH (08:05)
[2017-11-29] MEDS: Citalopram TAB* 20 MG PO SCH (08:05)
[2017-11-29] MEDS: Ferrous Sulfate TAB* 325 MG PO SCH (08:05)
[2017-11-29] MEDS: DULoxetine DR CAP* 60 MG CAP.DR PO SCH (08:05)
[2017-11-29] MEDS: Omeprazole CAP* 20 MG PO SCH (08:05)
[2017-11-29] MEDS: Magnesium Hydroxide LIQ* 30 ML UDC PO SCH (08:06)
[2017-11-29] MEDS ORDERED: Meloxicam(NF) 7.5 MG TAB PO SCH (09:00)
[2017-11-29] MEDS: oxyCODONE/Acetamin 5/325 MG* TAB PO PRN (09:46)
--- NOTE | 2017-11-29 15:58 | PN ---
Progress Note - Progress Note Date of Service: 11/29/17 SOAP: Subjective: 47 y/o female s/p R post-op wrist infection s/p I&D 11/[address] Olivo. Patient eager for D/C. Culture show PICC inplace. VSS afebrile. in room with patient. Objective: Vital Signs Temp 97.1 F 11/29/17 07:36 Pulse 72 11/29/17 07:36 Resp 16 11/29/17 09:46 BP 162/84 11/29/17 07:36 Pulse Ox 98 11/29/17 08:00 Intake & Output 11/28/17 11/29/17 11/29/17 18:59 06:59 18:59 Intake Total 1034 2670 1025 Output Total 1250 1450 Balance -216 1220 1025 Intake: IV Fluids 20 20 75 NS (0.9%) 20 20 20 cefazolin 55 IVPB 54 50 cefazolin 54 50 Oral 960 2600 950 Output: Urine 1250 1450 Other: Date of Last Bowel 11/28/17 Movement # Bowel Movements 1 Estimated Stool Amount Medium General: WN, WD, NAD, A&O, sitting comfortably in bed. RUE: Dressing intact, no drainage noted. Sensation intact to light touch distally. Able to wiggle fingers without pain, make okay sign. Assessment: 47 y/o female s/p R post-op wrist infection s/p I&D 11/[address] Olivo. Plan: - D/C home today. PICC intact. - IV ABX ancef Q8H for 42 days, weekly labs, follow up with Dr. Sarabia 1-2 weeks. - Follow up with Dr. Olivo within 1 week for wound check - Home percocet.
--- NOTE | 2017-11-29 18:10 | DS ---
AMENDED REPORT NOW INCLUDES COSIGNER DESIGNATION - ESIGNED BEFORE ADJUSTMENT DISCHARGE SUMMARY: DATE OF ADMISSION: 11/24/17 DATE OF DISCHARGE: 11/29/17 PROVIDER: Kodak Olivo MD * (DICTATED BY KUNAL VALDIVIA) CHIEF COMPLAINT: 1. Right wrist postoperative infection with osteomyelitis. 2. Depression. 3. Hypertension. DISCHARGE DIAGNOSES: 1. Status post right wrist washout. 2. Hypertension. 3. Depression. PROCEDURE: Right wrist infection washout. CONSULTATIONS: 1. Infectious Disease. 2. Physical Therapy. 3. Occupational Therapy. BRIEF HISTORY: Ms. Quinteros is a 47-year-old female who developed a postoperative right wrist infection. She had persistent pain despite treatment of a postoperative soft tissue infection with oral antibiotics, and after MRI revealed concern for a deeper infection she was admitted for surgical irrigation and debridement which she underwent with Dr. Kodak Olivo on and 11/26/17. HOSPITAL COURSE: Ms. Quinteros is a 47-year-old female who developed a postoperative right wrist infection. She failed oral antibiotics, and was admitted for surgical irrigation and debridement. She underwent 2 washouts of her right wrist with Dr. Kodak Olivo. Postoperatively, she was seen by Dr. Sarabia. Wound cultures showed Staph aureus, non MRSA. She was started on Ancef. She had a PICC line placed for IV antibiotics. She remained afebrile during her hospitalizations and white blood cell counts improved to normal levels prior to discharge. PHYSICAL EXAMINATION: General: Well nourished, well developed, alert and oriented, no acute distress. Vital Signs: On day of discharge were temperature 97.1, pulse 72, respiratory rate 18, blood pressure 152/84. Examination of the right upper extremity showed intact surgical dressing with no drainage noted on dressing. No significant edema or erythema proximal or distal to dressing site. Sensation intact to light touch distally. She was able to wiggle her fingers without pain and make an okay sign. She had brisk capillary refill. LABORATORY DATA: No new laboratory results on day of discharge; however, her white blood cell count on 11/27/17 was 9.4, hemoglobin 11.8, hematocrit 36, platelets 328,000. DISCHARGE MEDICATIONS: 1. Citalopram 20 mg. 2. Colace 100 mg b.i.d. 3. Cymbalta 60 mg daily. 4. Ferrous sulfate 325 daily. 5. Lisinopril 10 mg in the morning. 6. Magnesium oxide 400 mg in the morning. 7. Meloxicam 15 mg daily. 8. Nystatin cream topical application twice daily. 9. Omeprazole 40 mg in the morning. 10. Percocet 5/325 mg 1 tab q.4 hours as needed for pain. 11. Requip 0.5 mg at bedtime. 12. IV Ancef 2 g q.8 hours for 42 days. CONDITION ON DISCHARGE: Stable. DISCHARGE INSTRUCTIONS: Kerry Quinteros is a 47-year-old female who is status post right wrist washout due to postoperative infection. She was discharged home on IV antibiotics, 2 g Ancef every 8 hours for 42 days with weekly labs per Dr. Sarabia including CBC, CMP, and CRP. She will follow up with Dr. Sarabia in 1 to 2 weeks. She will follow up with Dr. Olivo in 1 week for wound check and will call to make an appointment at our office. She will use Percocet as needed for severe pain. She may use meloxicam for moderate pain. She is to keep the surgical incision area dry. She can shower, but she will call office if the area or surgical dressing becomes wet. She was instructed to go immediately to the ER if she developed chest pain, shortness of breath. She will call if has increasing fever, chills, or swelling. All questions were answered. KUNAL VALDIVIA [id number]/[facility] #: [id number] RIK
--- NOTE | 2017-11-29 22:22 | DS ---
DICTATED CUT OFF - FULL REDICTATED DISCHARGE SUMMARY: DATE OF ADMISSION: DATE OF DISCHARGE: PROVIDER: Dr. Kodak Olivo. HOSPITAL COURSE: Kerry was admitted after she was found to have a postoperative wrist infection and went to the operating room with Dr. Olivo on DICTATION ENDS HERE ABRUPTLY SHIVANI KUNAL MCKEE [id number]/CPS #: [id number] DOCUMENT CREATED IN ERROR [facility]
== END 2017-11-29 10:40 | disposition home or self-care (01) | DRG 711 ==
LOC: OR 12:23 → SSU 17:27
PROVIDERS: ADMIT Physician Assistant Surgical; ATTEND Orthopaedic Surgery Hand Surgery
PROC: 0PBM0ZZ Excision of Right Carpal, Open Approach (ICD-10-PCS; 2017-11-24)
PROC: 02HV33Z Insertion of Infusion Device into Superior Vena Cava, Percutaneous Approach (ICD-10-PCS; principal; 2017-11-24 13:45)
PROC: 0PD Upper Bones, Extraction (ICD-10-PCS; 2017-11-26)
DX: T81.4XXA Infection following a procedure, initial encounter (principal); M86.131 Other acute osteomyelitis, right radius and ulna; Z68.41 Body mass index [BMI] 40.0-44.9, adult; I10 Essential (primary) hypertension; K21.9 Gastro-esophageal reflux disease without esophagitis; G25.81 Restless legs syndrome; M65.88 Other synovitis and tenosynovitis, other site; M17.0 Bilateral primary osteoarthritis of knee; M19.012 Primary osteoarthritis, left shoulder; M19.011 Primary osteoarthritis, right shoulder; F41.9 Anxiety disorder, unspecified; E66.01 Morbid (severe) obesity due to excess calories; S53.31XD Traumatic rupture of right ulnar collateral ligament, subsequent encounter; B95.61 Methicillin susceptible Staphylococcus aureus infection as the cause of diseases classified elsewhere; F32.9 Major depressive disorder, single episode, unspecified; M79.7 Fibromyalgia; Z80.49 Family history of malignant neoplasm of other genital organs; Z87.891 Personal history of nicotine dependence; Z88.0 Allergy status to penicillin; Z88.8 Allergy status to other drugs, medicaments and biological substances; Z91.018 Allergy to other foods; Z90.49 Acquired absence of other specified parts of digestive tract; Z82.49 Family history of ischemic heart disease and other diseases of the circulatory system; Z81.8 Family history of other mental and behavioral disorders; Z82.61 Family history of arthritis; Z79.1 Long term (current) use of non-steroidal anti-inflammatories (NSAID); Y83.4 Other reconstructive surgery as the cause of abnormal reaction of the patient, or of later complication, without mention of misadventure at the time of the procedure; Y79.3 Surgical instruments, materials and orthopedic devices (including sutures) associated with adverse incidents
CPT/HCPCS: 36415; 80048; 81025; 85014; 85018; 85025; 85048; 85049; 85610; 85652; 87070; 87073; 87077; 87186; 87205; 87640; 87641; A9270-GY; J0690; J0780; J1100; J1170; J1650; J2250; J2270; J2405; J2543; J2704; J3010; J3370

== ENCOUNTER 2018-01-13 10:42 | Emergency (ER) | payer OTHER ==
[2018-01-13 11:09] VITALS: BP 136/88
--- NOTE | 2018-01-13 11:44 | RAD ---
HISTORY: s/p fall on her right wrist COMPARISONS: November 18, 2017 VIEWS: 3, Frontal, lateral, and oblique views of the right wrist FINDINGS: BONE DENSITY: There is diffuse osteopenia. BONES: There is a transverse nondisplaced fracture of the distal radial metaphysis. 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 ALIGNMENT: There is no dislocation. SOFT TISSUES: Unremarkable. OTHER FINDINGS: None. IMPRESSION: 1. TRANSVERSE NONDISPLACED FRACTURE OF THE DISTAL RADIAL METAPHYSIS. 2. OSTEOPENIA, GREATER THAN EXPECTED FOR AGE.
--- NOTE | 2018-01-13 12:21 | UC ---
Hand/Wrist HPI - HPI Summary HPI Summary: right wrist pain x 1 day s/p fall on her right wrist. + pain and swelling of right wrist had reconstruction surgery few months ago , had infection of the wrist as well she just had her cast removed 2 weeks ago - History Of Current Complaint Chief Complaint: UCUpperExtremity Stated Complaint: RIGHT WRIST INJURY - WC Time Seen by Provider: 01/13/18 11:17 Hx Obtained From: Patient Hx Last Menstrual Period: uterine ablation Onset/Duration: Sudden Onset, Lasting Days - 1, Still Present Severity Initially: Severe Severity Currently: Severe Pain Intensity: 10 Pain Scale Used: 0-10 Numeric Character Of Pain: Throbbing Aggravating Factor(s): Movement, Lifting, Flexion, Extension Alleviating Factor(s): Nothing Associated Signs And Symptoms: Positive: Swelling, Weakness, Numbness/Tingling. Negative: Redness, Bruising, Fever - Allergies/Home Medications Allergies/Adverse Reactions: Allergies Allergy/AdvReac Type Severity Reaction Status Date / Time naproxen [From Aleve] Allergy Hives Verified 01/13/18 11:01 sumatriptan [From Imitrex] Allergy Edema Verified 01/13/18 11:01 Penicillins AdvReac yeast Verified 01/13/18 11:01 allergy shot Allergy anaphylaxis Uncoded 01/13/18 11:01 Home Medications: Home Medications Gabapentin 300 mg PO DAILY 01/13/18 [History Confirmed 01/13/18] PMH/Surg Hx/FS Hx/Imm Hx Cardiovascular History: Hypertension - Surgical History Surgical History: Yes Surgery Procedure, Year, and Place: 2008 Left Forearm Nerve Decompression, [facility] [place]. 2014 RIGHT ROTATOR CUFF REPAIR- [facility]. 2001 Cholecystectomy, [facility]. [address] OFFICE. 2013 RT CARPAL TUNNEL & ulnar nerve right arm [facility]. 2016 Upper endo and Colonoscpy [facility]. 2016 Cystocele repair with mesh [facility]. 2016 HEART CATH NO STENTS [facility]. 04/2017, right wrist , [facility]. 09/2017 RIGHT WRIST RECONSTRUCTION - Family History Known Family History: Positive: Hypertension, Other - migraines Negative: Cardiac Disease, Diabetes - Social History Alcohol Use: Occasionally Alcohol Amount: 2 beers each evening Substance Use Type: None Smoking Status (MU): Light Every Day Tobacco Smoker Type: Cigarettes Amount Used/How Often: 1-2 daily Length of Time of Smoking/Using Tobacco: 5-6 Years Have You Smoked in the Last Year: Yes When Did the Patient Quit Smoking/Using Tobacco: 2017 Household Exposure Type: Cigarettes - Immunization History Most Recent Influenza Vaccination: 04/2015 Vaccination Up to Date: Yes Review of Systems Constitutional: Negative Skin: Negative Eyes: Negative ENT: Negative Respiratory: Negative Is Patient Immunocompromised?: No All Other Systems Reviewed And Are Negative: Yes Physical Exam Triage Information Reviewed: Yes Appearance: Well-Appearing, Well-Nourished, Pain Distress Vital Signs: Initial Vital Signs Temp 97.8 F 01/13/18 11:04 Pulse 94 01/13/18 11:04 Resp 16 01/13/18 11:04 BP 136/88 01/13/18 11:04 Pulse Ox 97 01/13/18 11:04 Vital Signs Reviewed: Yes Eyes: Positive: Conjunctiva Clear ENT: Positive: Normal ENT inspection, Hearing grossly normal, Pharynx normal Neck: Positive: Supple Respiratory: Positive: Chest non-tender, Lungs clear, Normal breath sounds Cardiovascular: Positive: RRR, No Murmur, Pulses Normal Musculoskeletal: Positive: Other: - right wirst: + surgical scar, mild swelling , no erythema, sever diffuse tenderness, limited ROM due to pain Diagnostics - Laboratory Diagnostic Studies Completed/Ordered: right wrist xray : IMPRESSION: 1. TRANSVERSE NONDISPLACED FRACTURE OF THE DISTAL RADIAL METAPHYSIS. 2. OSTEOPENIA , GREATER THAN EXPECTED FOR AGE. Hand/Wrist Course/Dx - Differential Dx/Diagnosis Provider Diagnoses: fracture right wrist Discharge - Sign-Out/Discharge Documenting (check all that apply): Patient Departure - Discharge Plan Condition: Stable Disposition: HOME Prescriptions: HYDROcodone/ACETAMIN 5-325 MG* [[place] 5-325 TAB*] 1 tab PO Q6H PRN #15 tab MDD 4 PRN Reason: Pain Patient Education Materials: Wrist Fracture in Adults (ED) Referrals: Felecia Heaton MD [Primary Care Provider] - Additional Instructions: please call your ortho for follow up edwige - Billing Disposition and Condition Condition: STABLE Disposition: Home
== END 2018-01-13 12:13 | disposition home or self-care (01) ==
LOC: UCCORT 10:42
DX: S52.501A Unspecified fracture of the lower end of right radius, initial encounter for closed fracture (principal); W19.XXXA Unspecified fall, initial encounter; Y93.9 Activity, unspecified; Y92.9 Unspecified place or not applicable; M85.841 Other specified disorders of bone density and structure, right hand; Z88.0 Allergy status to penicillin; Z88.6 Allergy status to analgesic agent; Z88.8 Allergy status to other drugs, medicaments and biological substances; F17.210 Nicotine dependence, cigarettes, uncomplicated
CPT/HCPCS: 99212; G0463

== ENCOUNTER 2019-01-04 11:27 | Day surgery (SDC) | payer OTHER ==
[~2019-01-04 11:27] MED LIST changes: -Buffered Lidocaine 0.9% SYRIN* 5 ML/SYR SYRINGE INTRADERM ONE; +Buffered Lidocaine 1% SYRIN* 1 ML/SYRINGE INTRADERM ONE; +Famotidine IV* 10 MG/ML 2 ML (20 mg) IV ONE; -Famotidine TAB* 20 MG PO ONE; +Lactated Ringers 1000 ML Bag* 1,000 ML IV SCH
[2019-01-04] MEDS ORDERED: Buffered Lidocaine 1% SYRIN* 1 ML/SYRINGE INTRADERM ONE (11:55)
[2019-01-04] MEDS ORDERED: Clindamycin 900 MG IVPREMIX(* 900 MG/50 ML SDV IV ONE (11:55)
[2019-01-04] MEDS ORDERED: Famotidine IV* 10 MG/ML 2 ML (20 mg) ONE (11:55)
[2019-01-04] MEDS ORDERED: fentaNYL* 50 MCG/ML 2 ML VIAL (100 MCG VIAL) ONE ×2 (12:18→13:53)
[2019-01-04] MEDS ORDERED: Midazolam* 1 MG/ML 5 ML VIAL (5 MG) ONE (12:18)
[2019-01-04] MEDS ORDERED: Lidocaine 1% w EPI 1:100,000* 30 ML VIAL ONE (13:03)
[2019-01-04] MEDS ORDERED: Bupivacaine 0.25% SDV PF* 10 ML VIAL INJ ONE (13:03)
[2019-01-04] MEDS ORDERED: Lidocaine 1% INJ* 10 MG/ML 30 ML SDV ONE (13:03)
[2019-01-04] MEDS ORDERED: DiMENhydriNATE IV* 50 MG/ML VIAL ONE (14:10)
[2019-01-04] MEDS ORDERED: Lidocaine 2% PF * 5 ML VIAL ONE (14:10)
[2019-01-04] MEDS ORDERED: Propofol* 10 MG/ML 20 ML BTL ONE (14:10)
[2019-01-04] MEDS ORDERED: Ondansetron INJ* 2 MG/ML VIAL ONE (14:10)
[2019-01-04] MEDS ORDERED: Dexamethasone IV* 4 MG/ML 1 ML (4 MG) ONE (14:10)
[2019-01-04] MEDS ORDERED: EPHEDrine (Pressors)* 50 MG/ML VIAL ONE (14:11)
[2019-01-04] MEDS ORDERED: Naloxone* 0.4 MG/ML 1 ML VIAL IV PRN (14:25)
[2019-01-04] MEDS ORDERED: DiMENhydriNATE IV* 50 MG/ML VIAL IV PUSH PRN (14:25)
[2019-01-04] MEDS ORDERED: Acetaminophen TAB* 325 MG PO PRN (14:25)
[2019-01-04] MEDS ORDERED: oxyCODONE TAB* 5 MG TAB PO PRN (14:25)
[2019-01-04] MEDS ORDERED: HYDROmorphone INJ1* 1 MG/ML SYRINGE ONE ×2 (15:13→16:06)
[2019-01-04] MEDS: HYDROmorphone INJ1* 1 MG/ML SYRINGE IV PRN ×3 (16:07→16:28)
[2019-01-04 17:03] VITALS: BP 131/71
--- NOTE | 2019-01-04 20:53 | OP ---
DATE OF OPERATION: 01/04/19 - [facility] DATE OF : 70 SURGEON: Kodak Olivo MD COMMAND CENTER ANALYST: KUNAL Valadez. An blood bank assistant was needed for the procedure to aid in positioning of the arm and retraction. ANESTHESIOLOGIST: Dr. Moon. ANESTHESIA: General. 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 OPERATIVE PROCEDURE: Right wrist proximal row carpectomy with allograft tissue interposition. Please note that this was substantially more difficult than atypical wrist proximal row carpectomy due to it has been revision surgery and requiring AlloDerm tissue interposition. INDICATIONS: Kerry had the aforementioned scapholunate ligament reconstruction that was complicated by infection that necessitated removal of the graft and she has subsequent scapholunate instability and has developed degenerative changes resulting in significant pain and discomfort in the wrist joint. She is wondering what further to be done. We talked about risks and benefits. She understands there is a risk of infection with a revision surgery. She wants to proceed. ESTIMATED BLOOD LOSS: 5 mL. COMPLICATIONS: None. FINDINGS: See above and below. DESCRIPTION OF PROCEDURE: Kerry was seen in the preoperative holding area. The correct side, site, and procedure were identified. We came back to the operating room where the arm was prepped and draped in the usual fashion and a time-out was performed. The arm was exsanguinated with the Esmarch and the tourniquet was inflated to 250 mmHg. I reopened her prior dorsal midline incision. Full thickness flaps were raised off the retinaculum. The EPL tendon was transposed already and so was dissected free and mobilized. The retinaculum was opened over the fourth dorsal compartment and then raised radially and ulnarly. The second, fourth and fifth dorsal compartment tendons were all retracted out of the way. The wrist was flexed about 30 degrees to its maximum extent and then I raised a dorsal capsular U-flap to expose the dorsal corpus. I then began with the triquetrum and excised that first and then excised the lunate and then at last, I excised the scaphoid. This took some time. We did it in piecemeal fashion, but ultimately we are able to get all of the bones excised, again it was a bit more difficult due to being revision work and the wrist been very scarred. After all of the proximal row bones were excised, I examined the proximal pole of the capitate and the lunate facet. The proximal pole of the capitate looked pretty good. The lunate facet was actually relatively well preserved, but was some way. I therefore took some allograft tissue and held it over on itself and made a little mat and secured the periphery of the mat of the edges of that graft with 4-0 Ethibond suture. I then sewed the graft to the volar capsular ligaments with three 4-0 Ethibond [id number] sutures. This held the graft in excellent position. The wrist was very stable. The proximal pole of the capitate was not subluxing or dislocating at all. At this point, everything was looking very nice, so the wrist was irrigated out. Dorsal capsule was thinned and then that capsular flap was lengthened by back cutting a little bit and then to allow for greater wrist flexion. I then sewed it closed with 3-0 PDS suture. The reticulum was closed with 3-0 PDS suture, leaving the EPL tendon transposed. The skin was closed with 4- 0 nylon suture. 0.25% plain Marcaine was infiltrated all about the operative area. Wound was dressed with Xeroform, 4x4, sterile Webril and then a plaster wrist splint was applied. She was taken to the recovery room in stable condition. [id number]/[facility] #: [id number] RIK
== END 2019-01-04 17:03 | disposition home or self-care (01) ==
LOC: OR 11:27
PROVIDERS: ATTEND Orthopaedic Surgery Hand Surgery
DX: S63.30 Traumatic rupture of unspecified ligament of wrist (principal); M25.331 Other instability, right wrist; M19.131 Post-traumatic osteoarthritis, right wrist; I10 Essential (primary) hypertension; M19.90 Unspecified osteoarthritis, unspecified site; Z88.0 Allergy status to penicillin; K21.9 Gastro-esophageal reflux disease without esophagitis; G25.81 Restless legs syndrome; F17.210 Nicotine dependence, cigarettes, uncomplicated; X58.XXXS Exposure to other specified factors, sequela; Y92.9 Unspecified place or not applicable
CPT/HCPCS: 81025; 88304; 88311; J1100; J1170; J1240; J2250; J2405; J2704; J3010; J3490; Q4116

== ENCOUNTER 2019-04-24 10:47 | Emergency (ER) | payer BC, OTHER ==
--- OUTSIDE RECORDS SUMMARY | 2019-04-24 10:58 | XMS REPORT | Continuity of Care Document ---
:1970 External Reference #:[id number] Author Name Kodak Olivo MD (transmitted by agent of provider Isidro Smith) Address [address] [place] [address] Care Team Providers Name Role Phone Arabella Cummings NP - Family Care Team Information Coat Fitter [phone] Problems Active Problems Provider Date Traumatic rupture of unspecified ligament of Kodak Olivo MD Onset: 2016 right wrist, subsequent encounter Late effect of sprain AND/OR strain without Kodak Olivo MD Onset: 2017 tendon injury Infection following a procedure, subsequent Kodak Olivo MD Onset: 2017 encounter Social History Type Date Description Comments Sex Unknown ETOH Use Denies alcohol use Recreational Drug Use Denies Drug Use Tobacco Use Start: Unknown End: Patient is a former Using a Vape Unknown smoker Smoking Status Reviewed: 04/02/19 Patient is a former Using a Vape smoker Exercise Type/Frequency Does not exercise Allergies, Adverse Reactions, Alerts Active Allergies Reaction Severity Comments Date Penicillin 09/20/2010 Imitrex 09/18/2016 Aleve 09/18/2016 Medications Active Medications SIG Qnty Indications Ordering Provider Date Ibuprofen 1 every 8 hours 90tabs Kodak Olivo, 12/09/2017 800mg Tablets as needed with food Lidoderm apply daily as 50units G56.32 Sean Sánchez, 04/21/2013 5% Patches needed for arm pain 12 hours on, 12 hours off Lisinopril 1 tab qd po 90tabs Unknown 10mg Tablets Meloxicam 1 by mouth every Unknown 15mg Tablets day Ropinirole HCL 1 tab by mouth Unknown 5mg in the evening Tablets Magnesium Oxide take 1 tablet by Unknown 500mg mouth daily Tablets Omeprazole 1 by mouth every Unknown 40mg day Capsules DR Fournier 1 by mouth every Unknown 30mg Caps DR garcia Part Ketoconazole apply twice a Unknown 2% Cream week Epinephrine prn Francisco, 0.3mg/0.3ML MD Rommel Solution Auto-Inject Gabapentin 1 PO qid Felecia Heaton MD 400mg Capsules Citalopram 1 po q day Arabella Cummings , Hydrobromide 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 40mg Tablets Zolpidem Tartrate 1 po q hs as Arabella Cummings , 5mg needed 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 Tablets Gabapentin 1 capsule by Unknown 100mg mouth 4 times Capsules daily with 400mg dose History Medications Keflex 1 cap by mouth 40caps Kodak Olivo MD 01/06/2019 - 500mg Capsules four times a day 01/14/2019 Hydrocodone-Acetamin 1 or 2 tabs by 30tabs Kodak Olivo MD 01/04/2019 - ophen mouth every 6-8 01/27/2019 5-325mg Tablets hours as needed for pain Medications Administered in Office Medication SIG Qnty Indications Ordering Provider Date Celestone 3 mg and 3mg Kodak Olivo MD 07/22/2017 Injection Celestone 3 mg and 3mg Kodak Olivo MD 06/24/2017 Injection Celestone 3 mg and 3mg Kodak Olivo MD 03/04/2017 Injection Celestone 3 mg and 3mg Kodak Olivo MD 03/04/2017 Injection Depomedrol 40MG Sean Sánchez MD 09/02/2016 Injection Depomedrol 40MG Nichole Salgado M.D. 10/04/2015 Injection Depomedrol 80MG Nichole Salgado M.D. 04/26/2015 Injection Depomedrol 80MG Nichole Salgado M.D. 05/25/2014 Injection Depomedrol 80MG Nichole Salgado M.D. 08/12/2012 Injection Saúlomedrol 80MG Nichole Salgado M.D. 06/06/2011 Injection Depomedrol 80MG Nichole Salgado M.D. 02/07/2011 Injection Depomedrol 40MG Nichole Salgado M.D. 02/07/2011 Injection Depomedrol 80MG Nichole Salgado M.D. 11/08/2010 Injection Immunizations CPT Code Status Date Vaccine Lot # [id number] Given 05/12/2006 Influenza Virus 3Yrs & Over 23[address] Given 01/24/1998 DT Vaccine Younger Than 7 Yrs Vital Signs Date Vital Result Comment 04/02/2019 8:34am Height 67.5 inches 5'7.50" Weight 273.00 lb Heart Rate 87 /min BP Systolic Sitting 130 mmHg BP Diastolic Sitting 81 mmHg Respiratory Rate 16 /min Body Temperature 97.4 F Pain Level 4 O2 % BldC Oximetry 98 % BMI (Body Mass Index) 42.1 kg/m2 02/19/2019 1:10pm Height 67.5 inches 5'7.50" Weight 273.00 lb Heart Rate 97 /min BP Systolic Sitting 134 mmHg BP Diastolic Sitting 102 mmHg Respiratory Rate 18 /min Pain Level 4 O2 % BldC Oximetry 97 % BMI (Body Mass Index) 42.1 kg/m2 Results Test Date Facility Test Result H/L Range Note Laboratory test 01/04/2019 [facility] Surgical SEE RESULT [address] [place] [address] [phone] Laboratory test 01/03/2019 [facility] Alloderm Thick SEE RESULTS 2, [address] MD KERN <[place] [address] NOTE> [phone] 1 SEE RESULT BELOW Name: KERRY CALHOUN : [address]: Kodak Olivo MD Acct: [id number] Unit: [id number] AGE: 48 Location: OR Re01/04/19 SEX: F Status: DEP SDC SPEC: [id number] TIO: 01/04/19- [facility] DR: Kodak Olivo MD REQ: [id number] RECD: 01/04/19 STATUS: SOUT _ ORDERED: Decal, LEVEL 3 FINAL DIAGNOSIS Wrist, right, proximal row, excision: -- Benign bone and cartilage with degenerative change. PRE-OPERATIVE DIAGNOSIS Traumatic rupture of unspecified ligament in right wrist GROSS DESCRIPTION The specimen is received in formalin labeled, Right Wrist Proximal Row, and consists of a 5.3 x 3.9 by up to 1.0 cm aggregate of yellow-white irregular bone fragments. Airfield Engineer Officer sections, one cassette following decalcification. Signed by and Reported on: Narda Martell MD 01/07/19 1126 END OF REPORT DEPARTMENT OF PATHOLOGY, [address] [place] [address] Dusty Lloyd M.D. Director [facility] # [id number] 2 TRAUMATIC RUPTURE OF UNSPECIFIED LIGAMENT OF RIGHT 3 SEE RESULTS BELOW [id number] [facility] 01/04/19 1313 Procedures Date Code Description Status 01/29/2019 76574 Rad Exam; Wrist Limited, 2 Views Completed 01/15/2019 68303 Short Arm Cast Application Completed 01/04/2019 95325 Carpectomy ALL Bones Proximal Row Completed 01/04/2019 67730 Carpectomy ALL Bones Proximal Row Completed 10/19/2018 05441 Injection Single Or Multiple Trigger Points Three Or More Completed Muscles 10/16/2018 32461 Rad Exam; Wrist, Comp, Min 3 Views Completed Medical Devices Description No Information Available Encounters Type Date Location Provider Dx Diagnosis Office Visit 12/18/2018 [facility] Kodak Olivo, S63.301S Traumatic 8:00a at [facility] rupture of unsp ligament of right wrist, sequela M25.331 Other instability, right wrist Office Visit 10/16/2018 8:30a [facility] S63.301S Traumatic at [facility] Olivo MD rupture of unsp ligament of right wrist, sequela M25.331 Other instability, right wrist 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, right wrist S63.301D Traumatic rupture of unsp ligament of right wrist, subs Assessments Date Code Description Provider 04/02/2019 S63.301S Traumatic rupture of unspecified ligament of Kodak Olivo MD right wrist, sequela 02/19/2019 S63.301D Traumatic rupture of unspecified ligament of Kodak Olivo MD right wrist, subsequent encounter 02/19/2019 Z47.89 Encounter for other orthopedic aftercare Kodak Olivo MD 01/29/2019 S63.301D Traumatic rupture of unspecified ligament of Kodak Olivo MD right wrist, subsequent encounter 01/29/2019 Z47.89 Encounter for other orthopedic aftercare Kodak Olivo MD 01/29/2019 M25.331 Other instability, right wrist Kodak Olivo MD 01/29/2019 S63.301S Traumatic rupture of unspecified ligament of Kodak Olivo MD right wrist, sequela 01/15/2019 S63.301S Traumatic rupture of unspecified ligament of Kodak Olivo MD right wrist, se 01/15/2019 M25.331 Other instability, right wrist Kodak Olivo MD 01/04/2019 S63.301S Traumatic rupture of unspecified ligament of KUNAL Valadez right wrist, se 01/04/2019 S63.301S Traumatic rupture of unspecified ligament of Kodak Olivo MD right wrist, se 01/04/2019 M25.331 Other instability, right wrist KUNAL Valadez 01/04/2019 M25.331 Other instability, right wrist Kodak Olivo MD 12/18/2018 S63.301S Traumatic rupture of unspecified ligament of Kodak Olivo MD right wrist, se 12/18/2018 M25.331 Other instability, right wrist Kodak Olivo MD 11/24/2018 S63.301S Traumatic rupture of unspecified ligament of Kodak Olivo MD right wrist, se 10/19/2018 G56.32 Lesion of radial nerve, left upper limb Sean Sánchez MD 10/16/2018 S63.301S Traumatic rupture of unspecified ligament of Kodak Olivo MD right wrist, se 10/16/2018 M25.331 Other instability, right wrist Kodak Olivo MD 10/16/2018 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
[2019-04-24 12:04] VITALS: BP 135/85
--- NOTE | 2019-04-24 12:40 | UC ---
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 CHEST FEELS HEAVY, SINUS CONGESTION, HEADACHE. NO FEVER OR CHILLS SHE IS AWARE OF.PT IS PRESENTLY ON MACROBID 100 MG PO BID FOR A UTI." "PT STATES RECENTLY HAS HAD THROUGHTS OF HURTING HERSELF AND DEPRESSION. SHE SAW HER PCP YESTERDAY AND SHE INCREASE HER DEPRESION MEDICATION." -has had some pressure over cheeks for past 2-3 days. ears have pressure. no wheezing. no asthma. + vaping. has an inhaler but states that they dont typically work for her. no fevers. -here w/ her dtr who has same sx -states that she knows someone who from overuse of a nasal spray - History of Current Complaint Chief Complaint: UCRespiratory Stated Complaint: CHEST CONGESTION, COUGH Time Seen by Provider: 04/24/19 12:18 Hx Last Menstrual Period: UTERINE ABLASION 14 YEARS AGP Pain Intensity: 6 - Allergies/Home Medications Allergies/Adverse Reactions: Allergies Allergy/AdvReac Type Severity Reaction Status Date / Time pregabalin [From Lyrica] Allergy Unknown Hives Verified 04/24/19 11:51 naproxen [From Aleve] Allergy Hives Verified 04/24/19 11:50 sumatriptan [From Imitrex] Allergy Edema Verified 04/24/19 11:50 Penicillins AdvReac yeast Verified 04/24/19 11:50 allergy shot Allergy anaphylaxis Uncoded 04/24/19 11:50 Home Medications: Home Medications ?Name Antibiotic 04/24/19 [History] D-Methorphan/PE/Acetaminophen [Vicks Dayquil Cold & Flu] 1 cap PO PRN 04/24/19 [ History] Nitrofurantoin Monohyd/M-Cryst [Macrobid 100 mg Capsule] 100 mg PO BID 04/24/19 [History Confirmed 04/24/19] PMH/Surg Hx/FS Hx/Imm Hx Previously Healthy: Yes Cardiovascular History: Hypertension Psychological History: Anxiety, Depression - Surgical History Surgical History: Yes Surgery Procedure, Year, and Place: 2008 Left Forearm Nerve Decompression, [facility]. 2015 RIGHT ROTATOR CUFF REPAIR- [facility]. 2002 Cholecystectomy, [facility]. [address] OFFICE. 2013 RT CARPAL TUNNEL & ulnar nerve right arm [facility]. 4-5 WRIST SURGERY FROM INJURY. 2016 Upper endo and Colonoscpy [facility]. 2016 Cystocele repair with mesh [facility]. [address] [facility]. 04/2017, right wrist, [facility]. 09/2017 RIGHT WRIST RECONSTRUCTION. 2017, right wrist x2, [facility] - Family History Known Family History: Positive: Hypertension, Other - migraines Negative: Cardiac Disease, Diabetes - Social History Alcohol Use: Occasionally Alcohol Amount: 2 beers Substance Use Type: None Smoking Status (MU): Light Every Day Tobacco Smoker Type: eCigarettes Amount Used/How Often: 3 cigs per day Length of Time of Smoking/Using Tobacco: 5-6 Years Have You Smoked in the Last Year: Yes When Did the Patient Quit Smoking/Using Tobacco: 2016 Household Exposure Type: Cigarettes - Immunization History Most Recent Influenza Vaccination: 04/2015 Vaccination Up to Date: Yes Review of Systems All Other Systems Reviewed And Are Negative: Yes Constitutional: Positive: Fatigue. Negative: Fever Skin: Positive: Negative. Negative: Rash Eyes: Positive: Negative ENT: Positive: Sore Throat, Ear Ache, Nasal Discharge, Sinus Pain/Tenderness Respiratory: Positive: Cough. Negative: Shortness Of Breath Cardiovascular: Positive: Negative. Negative: Palpitations, Chest Pain Gastrointestinal: Positive: Negative Genitourinary: Positive: Negative Motor: Positive: Negative Neurovascular: Positive: Negative Musculoskeletal: Positive: Negative Neurological: Positive: Negative Psychological: Positive: Negative Is Patient Immunocompromised?: No Physical Exam Appearance: No Pain Distress, Well-Nourished, Ill-Appearing - mild, mild cough Vital Signs: Initial Vital Signs Temp 97.9 F 04/24/19 11:54 Pulse 81 04/24/19 11:54 Resp 21 04/24/19 11:54 BP 135/85 04/24/19 11:54 Pulse Ox 96 04/24/19 11:54 Vital Signs Reviewed: Yes Eye Exam: Normal Eyes: Positive: Conjunctiva Clear ENT: Positive: Pharyngeal erythema - mild w/ + PND< no exudate, Nasal congestion , Nasal drainage, Uvula midline, Other - b/l mild serous fluid. Negative: TM bulging, TM dull, TM red, Sinus tenderness Neck exam: Normal Neck: Positive: Supple, Nontender, No Lymphadenopathy Respiratory Exam: Normal Respiratory: Positive: Chest non-tender, Lungs clear, Normal breath sounds, No respiratory distress, No accessory muscle use. Negative: Crackles, Rhonchi, Stridor, Wheezing Cardiovascular Exam: Normal Cardiovascular: Positive: RRR Abdominal Exam: Normal Musculoskeletal Exam: Normal Neurological Exam: Normal Psychological Exam: Normal Skin Exam: Normal Respiratory Course/Dx - Course Course Of Treatment: viral. no fever. lungs clear. sinus sx x 2-3 days do not constutute bacrterali sinusitis -fluids./rest, supportive treatent -use home alb - deniies need for RF - Differential Dx/Diagnosis Differential Diagnosis/HQI/PQRI: Asthma, Bronchitis, Lower Resp Infection, Sinusitis Provider Diagnosis: Bronchitis Discharge ED - Sign-Out/Discharge Documenting (check all that apply): Patient Departure All imaging exams completed and their final reports reviewed: No Studies - Discharge Plan Condition: Stable Disposition: HOME Patient Education Materials: Upper Respiratory Infection (ED), Acute Bronchitis (ED) Referrals: Arabella Cummings [facility] [Primary Care Provider] - 5 Days Additional Instructions: There is no evidence for bacterial infection at this time. Fluids, rest are helpful. Flonase can help your ear symptoms. 2 sprays each nostril 1x/day is considered to be safe. Follow up sooner if your symptoms increase or persist. Using your albuteril inhaler can be very helpful. - Billing Disposition and Condition Condition: STABLE Disposition: Home
== END 2019-04-24 13:03 | disposition home or self-care (01) ==
LOC: UCCORT 10:47
DX: J40 Bronchitis, not specified as acute or chronic (principal); H92.09 Otalgia, unspecified ear; R09.89 Other specified symptoms and signs involving the circulatory and respiratory systems; R09.82 Postnasal drip; I10 Essential (primary) hypertension; F17.290 Nicotine dependence, other tobacco product, uncomplicated; Z88.0 Allergy status to penicillin; Z88.8 Allergy status to other drugs, medicaments and biological substances
CPT/HCPCS: 99212; G0463